=== PATIENT | male | born 1965 | race Caucasian/White ===

== ENCOUNTER → 2016-08-05 18:44 | Outpatient (CLI) | payer MEDICARE | END | disposition home or self-care (01) | LOC: D.LABREF 18:44 | DX: M17.11 Unilateral primary osteoarthritis, right knee (principal) ==

== ENCOUNTER 2016-09-10 09:00 | Inpatient (IN) | payer MEDICARE ==
[~2016-09-10] VITALS: Ht 175.3 cm; Wt 164.5 kg
[2016-09-10 08:35] LABS: APPEARANCE HAZY (CLEAR); BILIRUBIN NEGATIVE (NEGATIVE); COLOR DK YELLOW (YELLOW); GLUCOSE 1000 mg/dL (NEGATIVE); KETONE NEGATIVE (NEGATIVE); LEUKOCYTE ESTERASE NEGATIVE (NEGATIVE); NITRITE NEGATIVE (NEGATIVE); PROTEIN NEGATIVE (NEGATIVE); SPECIFIC GRAVITY 1.015 (1.005-1.020); UROBILINOGEN NORMAL (NORMAL)
[2016-09-10 08:45] LABS: ANION GAP 14.5 mmol/L (8-16); CALCIUM 9.3 mg/dL (8.5-10.1); CREATININE - SERUM 1.3 mg/dL (0.6-1.3); POTASSIUM - SERUM 3.5 mmol/L (3.5-5.1)
[2016-09-10 08:51] LABS: APTT 28.3 SECONDS (22.8-39.4); INR 1.13 (0.85-1.17); PROTIME 14.4 SECONDS (11.6-15.0)
[~2016-09-10 09:00] MED LIST: BUPROPION HCL200 M1 PO; ELIQUIS2.5 MG PO; FARXIGA10 MG PO; ISOSORBIDE MONO30 M1 PO; KLONOPIN1 MG PO; LANTUS INSULIN10 ML SC; LEXAPRO20 MG PO; NEURONTIN 300300 MG PO; OMEPRAZOLE20 M1 PO; TRAZODONE HCL150 MG PO; TROKENDI XR100 MG PO; VICTOZA0.6 MG/0.1 SQ; VITAMIN B-122500 MCG PO; VITAMIN D5000 UNIT PO; ZESTORETIC 20-1 EACH PO
[2016-09-10] MEDS ORDERED: NOVOLOG100 U/M1 SC (09:01)
[2016-09-10] MEDS ORDERED: LOTRISONE CREAM45 GM TOPICAL (09:02)
[2016-09-10] MEDS ORDERED: METFORMIN HCL500 M1 PO (09:02)
[2016-09-10] MEDS ORDERED: ZYRTEC10 MG PO (09:03)
[2016-09-10] MEDS ORDERED: REQUIP1 MG PO (09:03)
[2016-09-10] MEDS ORDERED: PROVENTIL HFA6.7 GM INH (09:04)
[2016-09-10] MEDS ORDERED: COLACE100 MG PO (09:04)
[2016-09-10 09:10] LABS: BASOPHILS 0.4 % (0-2); EOSINOPHILS 2.5 % (0-7); HEMATOCRIT 53.6 % (42.0-54.0); HEMOGLOBIN 18.2 g/dL (13.5-17.5); IMMATURE GRANULOCYTES 1.2 % (0-5); LYMPHOCYTES 29.8 % (15-50); MCH 29.3 pg (26.0-34.0); MCV 86.2 fL (80.0-100.0); MEAN PLATELET VOLUME 12.5 fL (7.4-10.4); MONOCYTES 11.6 % (2-11); NEUTROPHILS 54.5 % (40-80); PLATELET COUNT 174 10x3/uL (130-400); RBC 6.22 10x6/uL (4.20-6.10); RDW 14.4 % (11.5-14.5); WBC 6.7 10x3/uL (4.8-10.8)
[2016-09-14 09:11] VITALS: BP 127/75; BMI 53.6
[2016-09-14 13:00] VITALS: BP 111/77
--- NOTE | 2016-09-14 13:00 | NUR ---
RECEIVED TO ROOM 2210 FROM RECOVERY ROOM VIA BED. ORIENTED TO ROOM AND CALL LIGHT SYSTEM. FAMILY IN ROOM. CALL LIGHT IN REACH. WILL CONTINUE WITH PLAN OF CARE.
--- NOTE | 2016-09-14 15:00 | NUR ---
RESTING WITH EYES CLOSED. RESP EVEN AND UNLABORED. CALL LIGHT IN REACH.
[2016-09-14 15:57] VITALS: BP 111/77; Ht 175.3 cm; Wt 164.5 kg
--- NOTE | 2016-09-14 17:23 | NUR ---
ANCEF IVPB PER ORDER. DAUGHTER IN ROOM. CALL LIGHT IN REACH.
--- NOTE | 2016-09-14 18:35 | NUR ---
MEDS ADMINISTERED PER ORDER. NORCO PO. CPM ON. SCD TO LLE. ICE TO RIGHT KNEE. NO CHANGES IN INITIAL ASSESSMENT. CALL LIGHT IN REACH. WILL CONTINUE WITH PLAN OF CARE.
[2016-09-14 20:00] VITALS: BP 107/70
[2016-09-15] VITALS: BP 117/69
--- NOTE | 2016-09-15 02:57 | NUR ---
RESTING WITH EYES CLOSED, NO DISTRESS NOTED, FALL PRECAUTIONS IN PLACE, CL IN REACH
[2016-09-15 04:00] VITALS: BP 122/69
[2016-09-15 05:10] LABS: HEMATOCRIT 44.8 % (42.0-54.0); HEMOGLOBIN 14.6 g/dL (13.5-17.5); MCH 28.4 pg (26.0-34.0); MCHC 32.6 g/dL (31.0-37.0); MCV 87.2 fL (80.0-100.0); MEAN PLATELET VOLUME 12.6 fL (7.4-10.4); RBC 5.14 10x6/uL (4.20-6.10); RDW 14.4 % (11.5-14.5); WBC 8.1 10x3/uL (4.8-10.8)
--- NOTE | 2016-09-15 07:20 | NUR ---
REPORT RECEIVED FROM FEEDER/FOLDER NURSE. CALL LIGHT IN REACH.
--- NOTE | 2016-09-15 08:15 | NUR ---
ASSESSMENT COMPLETED. SCD TO LLE. BED ALARM ON. CALL LIGHT IN REACH. WILL CONTINUE WITH PLAN OF CARE.
[2016-09-15 09:17] VITALS: BP 109/59
--- NOTE | 2016-09-15 09:54 | NUR ---
* Is the patient Alert and Oriented? Yes 0 * How many steps to enter\exit or inside your home? 2 0 * PCP STEPHY 0 * Pharmacy [facility] [address] * Preadmission Environment Home with Family 0 * ADLs Partial Dependent 0 * Partial ADLs (Assistance needed) Ambulation Bathing Dressing 0 * Equipment Bedside Commode Cane CPAP Elevated Toliet Seat Rolling Walker Shower Chair Walker Wheelchair 0 * List name and contact numbers for known caregivers / representatives who currently or will assist patient after discharge: ALLA () [phone] DB (DAD) [phone] ([employer] [facility]) 0 * Community resources currently utilized None 0 * Additional services required to return to the preadmission environment? Yes 0 * Can the patient safely return to the preadmission environment? Yes 0 * Has this patient been hospitalized within the prior 30 days at any hospital? No 0 Grand Total: 0 Patient Name: FRANCINE CERVANTES Admission Status: Elective Accout number: [id number] Admission Date: 09-14-2016 : 1965 Admission Diagnosis: Attending: FINA Current LOS: 1 Anticipated DC Date: Planned Disposition: Home Primary Insurance: [facility] Discharge Planning Comments: CM met with patient to assess discharge planning needs. Patient currently lives at home with his (Alla) and his daughter. He stated that him and his help each other with their daily living needs. He stated that his house is a safe environment to return home and his father (Db) will be the one to drive him home. He uses a cpap machine, walker, wheelchair & shower chair. His discharge plan is to do Out Patient PT with [facility]. CM called Diane with [facility] called to verify the DME equipment, she stated that she is checking on equipment. CM will continue to follow and assist as needed. PCP: Stephy/Quynh Pharmacy: [facility] [address] - [place]a ([phone]) Dad- Db ([phone] Reinforced Steel Placing Supervisor: Awa Lazo
--- NOTE | 2016-09-15 09:56 | NUR ---
PATIENT REQUESTED PAIN MEDICATION BEFORE GETTING UP WITH PHYSICAL THERAPIST. ADMINISTERED PERCOCET PER ORDER. PATIENT IS RECIEVING OXYGEN VIA NASAL CANNULA AT 4L/MIN.
--- NOTE | 2016-09-15 10:31 | NUR ---
ASSESSMENT COMPLETED. SCD TO LLE. BED ALARM ON. CALL LIGHT IN REACH. WILL CONTINUE WITH PLAN OF CARE.
--- NOTE | 2016-09-15 10:31 | NUR ---
AM MEDS ADMINISTERED. UP TO CHAIR WITH PT.
[2016-09-15 11:54] VITALS: BP 101/66
--- NOTE | 2016-09-15 12:40 | NUR ---
4 UNITS INSULING SUBQ FOR BLOOD SUGAR OF 169.
--- NOTE | 2016-09-15 14:22 | NUR ---
PERCOCET AND NEURONTIN PO. IF FLUSHED THEN SL'D. AND FAMILY IN ROOM. CALL LIGHT IN REACH.
[2016-09-15 15:31] VITALS: BP 124/69
--- NOTE | 2016-09-15 16:40 | NUR ---
RESTING WITH EYES CLOSED. RESP EVEN AND UNLABORED. CALL LIGHT IN REACH.
--- NOTE | 2016-09-15 18:02 | NUR ---
TORADOL AND NORCO FOR CPM. METFORMIN PO. ICE PACK REFILLED AND PLACED TO RIGHT KNEE. NO OTHER CHANGES IN INITIAL ASSESSMENT. BED ALARM ON. CALL LIGHT IN REACH. SCDs OFF AT THIS TIME. WILL CONTINUE WITH PLAN OF CARE.
[2016-09-15 23:11] VITALS: BP 139/77
[2016-09-16] VITALS: BP 142/70
--- NOTE | 2016-09-16 01:35 | NUR ---
2230 REMOVED FROM CPM RESP. HERE BIPAP ON.ACEWRAP DRY AND INTACT RT. KNEE BRUSING NOTED RT. KNEE DOWN FOOT WARM PEDAL PULSE PRESENT. WIGGLES TOES AND DORSIFLEXES. C/O SOME NUMBNESS. WILL CONTINUE TO MONITOR FOR ANY CHGES. NEUROVASCULAR STATUS AND FOLLOW CURRENT PLAN OF CARE.
[2016-09-16 04:00] VITALS: BP 130/80
[2016-09-16 05:07] LABS: HEMATOCRIT 47.7 % (42.0-54.0); HEMOGLOBIN 15.7 g/dL (13.5-17.5); MCH 28.5 pg (26.0-34.0); MCHC 32.9 g/dL (31.0-37.0); MCV 86.6 fL (80.0-100.0); RBC 5.51 10x6/uL (4.20-6.10); RDW 14.5 % (11.5-14.5); WBC 8.2 10x3/uL (4.8-10.8)
--- NOTE | 2016-09-16 07:15 | NUR ---
REPORT RECEIVED FROM TEACHER EDUCATION DIRECTOR NURSE. CALL LIGHT IN REACH.
[2016-09-16 07:58] VITALS: BP 122/72
--- NOTE | 2016-09-16 08:20 | NUR ---
CPM REMOVED FROM RIGHT KNEE. NO NEEDS VOICED AT THIS TIME. CALL LIGHT IN REACH.
--- NOTE | 2016-09-16 10:32 | NUR ---
UP TO CHAIR PER PT. AMBULATED 8 FEET ONLY. ASSESSMENT COMPLETED. AM MEDS ADMINISTERED WITH PERCOCET. SCDs OFF AT THIS TIME. ALARM ON. ICE PACK REFILLED AND PLACED TO RIGHT KNEE. CALL LIGHT IN REACH. WILL CONTINUE WITH PLAN OF CARE.
[2016-09-16 12:06] VITALS: BP 138/73
--- NOTE | 2016-09-16 12:21 | NUR ---
FSBS 172. 4 UNITS INSULIN SUBQ.
--- NOTE | 2016-09-16 14:45 | NUR ---
MERCEDES AND BRAXTON PO. CALL LIGHT IN REACH.
[2016-09-16 15:36] VITALS: BP 137/77
--- NOTE | 2016-09-16 16:19 | NUR ---
PT AOX4 RESP EVEN AND NONLABORED PT DENIES NEEDS AT THIS TIME IV TO LEFT WRIST PATENT AND INTACT SRX2 BED AT LOWEST SETTING CALL LIGHT WITHIN REACH PT HERE FOR RIGHT TOTAL KNEE REPLACEMENT
--- NOTE | 2016-09-16 17:04 | NUR ---
METFORMIN PO. FSBS 168. 4 UNITS SUBQ TO RLQ ABD. CALL LIGHT IN REACH.
[2016-09-16 17:14] LABS: ALBUMIN 2.9 g/dL (3.4-5.0); ANION GAP 15.3 mmol/L (8-16); BILIRUBIN - TOTAL 0.93 mg/dL (0.2-1.3); CALCIUM 9.2 mg/dL (8.5-10.1); CARBON DIOXIDE 21.7 mmol/L (21.0-32.0); CREATININE - SERUM 1.1 mg/dL (0.6-1.3); PROTEIN - SERUM 6.5 g/dL (6.4-8.2)
--- NOTE | 2016-09-16 18:09 | NUR ---
CPM LACED ON. NO CHANGES IN INITIAL ASSESSMENT. ICE PACK REFILLED AND PLACED TO KNEE. STILL HAS SCDs OFF. BED ALARM ON. CALL LIGHT IN REACH. WILL CONTINUE WITH PLAN OF CARE.
--- NOTE | 2016-09-16 19:00 | NUR ---
BEDSIDE REPORT RECEIVED AND CARE OF PT ASSUMED. RIGHT LEG IN CPM AT THIS TIME. DRESSING ON RIGHT KNEE CLEAN AND DRY. IV IN LEFT WRIST SALINE LOCKED. SCD'S IN USE ON BLE. WILL MONITOR CLOSLEY FOR NEEDS.
[2016-09-16 20:00] VITALS: BP 138/79
--- NOTE | 2016-09-16 20:56 | NUR ---
HS MEDICATIONS GIVEN. FSBS 175 THIS CHECK REQUIRING CCOVERAGE PER SLIDING SCALE. WILL CONTINUE TO MONITOR FOR NEEDS.
[2016-09-17] VITALS: BP 122/74
[2016-09-17 04:00] VITALS: BP 135/85
--- NOTE | 2016-09-17 05:00 | NUR ---
PT BATHED AND ALL BEDDING CHANGED DUE TO INCONTINENT EPISODE. POSITIONED FOR COMFORT.
--- NOTE | 2016-09-17 05:45 | NUR ---
GAVE PERCOCET PER PT REQUEST FOR PAIN IN KNEE, AND ABOUT TO BE PLACED ON CPM. WILL MONITOR FOR EFFECTIVENESS.
[2016-09-17 07:40] VITALS: BP 155/81
--- NOTE | 2016-09-17 07:50 | NUR ---
A&O, PT STATES "I PULLED A MUSCLE IN MY STOMACH FROM COUGHING", DENIES OTHER NEEDS, BED LOWEST POSITION, CALL LIGHT IN REACH, WILL CONTINUE TO MONITOR
--- NOTE | 2016-09-17 10:01 | NUR ---
REHAB PRESCREENING Rehab referral recieved and chart reviewed. Patient does not meet criteria for IRF. Thank you for this referral! Lamar Ramirez, OPTIMIZATION ENGINEER Rehab Transfer Specialist
--- NOTE | 2016-09-17 11:53 | NUR ---
IN BED AT THIS TIME. INSULIN ADMINISTERED PER SLIDING SCALE. RESPIRATIONS EVEN AND NON LABORED. CALL LIGHT IN REACH, WILL CONTINUE WITH PLAN OF CARE.
[2016-09-17 12:24] VITALS: BP 137/71
--- NOTE | 2016-09-17 12:48 | NUR ---
CM spoke with patient, PT, and Jeaneth TANG. Patient does not think he would do best with out patient PT and all agree. We discussed options referral sent to Inpatient rehab along with [facility]. Awaiting on Auth from insurance
[2016-09-17 15:34] VITALS: BP 101/72
[2016-09-17 19:00] VITALS: BP 118/63
--- NOTE | 2016-09-17 19:00 | NUR ---
PATIENT IN BED SLEEPING ON CPM. HOB 10 DEGREES. RR EVEN AND UNLABORED. 0 S/S OF DISTRESS. IV TO LEFT WRIST SL WITH NO REDNESS OR SWELLING. SCD'S IN ROOM BUT OFF. B/A ON PER ORTHO PROTOCOL. SRX3. BED LOW. CALL LIGHT WITHIN REACH.
--- NOTE | 2016-09-17 22:40 | NUR ---
NIGHTTIME MEDICATION ADMINISTERED. PERCOCET GIVEN FOR PAIN. WILL REASSESS.
[2016-09-18] VITALS: BP 110/60
--- NOTE | 2016-09-18 01:00 | NUR ---
BATH GIVEN. ORAL CARE COMPLETE. NO OTHER NEEDS AT THIS TIME.
[2016-09-18 04:00] VITALS: BP 103/50
[2016-09-18 07:36] VITALS: BP 101/60
--- NOTE | 2016-09-18 10:40 | NUR ---
CM REASSESSMENT NOTE: [facility] DID NOT ACCEPT PATIENT. REFERRAL SENT TO [facility] PER PATIENT REQUEST.
[2016-09-18 12:09] VITALS: BP 92/55
--- NOTE | 2016-09-18 13:05 | NUR ---
PT SITTING UP IN BED WITH NO VISABLE SIGNS OF PAIN OF DISCOMFORT AT THIS TIME, BED IN LOW POSITION AND CALL LIGHT WITHIN REACH. WILL CONTINUE TO MONITOR.
[2016-09-18 15:14] VITALS: BP 106/63
--- NOTE | 2016-09-18 15:24 | OP ---
PATIENT NAME: FRANCINE CERVANTES MEDICAL RECORD: [id number] :[birth year] LOCATION:D.MS [id number] ADMISSION DATE:09/14/16 SURGEON: CARY JARVIS MD DATE OF OPERATION: 09/14/2016 PREOPERATIVE DIAGNOSES: 1. Severe degenerative arthritis of the right knee. 2. Morbid obesity. POSTOPERATIVE DIAGNOSES: 1. Severe degenerative arthritis of the right knee. 2. Morbid obesity. PROCEDURE: Right total knee arthroplasty. SURGEON: Cary Jarvis MD ANESTHESIA: General. INTRAOPERATIVE COMPLICATIONS: None. SUMMARY OF PATHOLOGIC FINDINGS: The patient had extensive osteoarthritis of the medial compartment and moderate to severe arthritis of the lateral compartment and patellofemoral joint was pristine. IMPLANTS USED: A size 4 press fit triathlon femoral component, size 9 polyethylene component, size 4 press fit triathlon tibial component. ESTIMATED BLOOD LOSS: 50 cc. OPERATIVE SUMMARY IN DETAIL: After obtaining the appropriate preoperative orthopedic surgery consent as well as anesthetic consultation, evaluation and clearance, the patient was brought to the operating room and placed on the operating table in supine position. After general laryngeal mask airway was administered, tourniquet was placed about the proximal aspect of the right lower extremity. Right lower extremity was then prepped and draped in routine sterile fashion. The leg was elevated and exsanguinated, tourniquet inflated to 350 mmHg. Midline incision was taken down for paramedian arthrotomy. Patella was everted, distal femur was exposed. Soft tissue excision was done in the usual fashion. Intramedullary guide hole was created for the distal femur and the distal femur cut was made. The patient had very strong bone. At this point, the proximal tibia was exposed in its entirety. Intramedullary guide hole was created here. Proximal tibial cut was made. This was followed by taking the appropriate measurements for the tibial baseplate as well as for the chamfer cuts of the distal femur, chamfer cuts of the distal femur were made. All accessory osteophytes were removed and the trial components were put into place corresponding to the above-mentioned final sizes. The trial component was put into its final location and stabilized. The pins were put into place. The knee was taken through range of motion and found to be stable in all planes. Proximal tibia and distal femoral final preparations were made. The knee was irrigated with pulsatile lavage. Having completed this, the tibial baseplate was put into place with good press fit followed by the polyethylene and then the femoral component was put into place again followed by good press fit. The knee was taken through range of motion. Excellent patellar tracking was noted. Having completed this, the knee was irrigated again, closed with #2 Ethibond OPERATIVE REPORT [id number] FRANCINE CERVANTES followed by #1 Vicryl, 2-0 Vicryl and skin yoni. Sterile dressings were applied. Tourniquet was deflated. The patient was awakened, taken to recovery room in stable condition. All final needle and sponge counts were correct. TRANSINT:[id number] Voice Confirmation ID: [id number] DOCUMENT ID: [id number] SIMONA ALVARADO, CARY ANTHONY at 1524 CC: [id number] DICTATION DATE: 09/14/16 1218 LOCK TENDER: 09/14/16 2330 ADM IN [facility] [address] [place] [address]
--- NOTE | 2016-09-18 16:12 | NUR ---
CM REASSESSMENT NOTE: PATIENT IS DISCHARGING TO [facility] TODAY TO A SKILLED BED BY FACILITY BED. IS AWARE AND BRINGING PATIENTS C-PAP TO HIM FOR DISCHARGE.
[2016-09-18] MEDS ORDERED: PERCOCET 10/3251 TA1 PO (16:37)
--- NOTE | 2016-09-18 18:07 | NUR ---
DISCHARGE PAPERS AND INSTRUCTIONS GIVEN, QUESTIONS ANSWERED, IV REMOVED TIP INTACT, PERCOCET GIVEN, DICHARGED PER WC WITH BELONGINGS, REPORT CALLED TO BALWINDER ORTEGA RN
== END 2016-09-18 18:08 | DRG 470 ==
LOC: D.MS 09-14 08:30 → D.SDCHOLD 09-14 08:30 → D.MS 09-14 11:35
PROVIDERS: ADMIT Orthopaedic Surgery
PROC: 0SRC0JA Replacement of Right Knee Joint with Synthetic Substitute, Uncemented, Open Approach (ICD-10-PCS; principal; 2016-09-14 09:15)
DX: M17.11 Unilateral primary osteoarthritis, right knee (principal); Z68.43 Body mass index [BMI] 50.0-59.9, adult; E66.01 Morbid (severe) obesity due to excess calories; M25.761 Osteophyte, right knee; E11.40 Type 2 diabetes mellitus with diabetic neuropathy, unspecified; Z79.4 Long term (current) use of insulin; I10 Essential (primary) hypertension; J45.909 Unspecified asthma, uncomplicated; Z86.718 Personal history of other venous thrombosis and embolism

== ENCOUNTER 2016-10-01 16:35 | Emergency (ER) | payer MEDICARE ==
[2016-09-14 15:57] VITALS: BMI 53.6
[~2016-10-01 16:35] MED LIST changes: +COLACE100 MG PO; +LOTRISONE CREAM45 GM TOPICAL; +METFORMIN HCL500 M1 PO; +NOVOLOG100 U/M1 SC; +PERCOCET 10/3251 TA1 PO; +PROVENTIL HFA6.7 GM INH; +REQUIP1 MG PO; +ZYRTEC10 MG PO
== END 2016-10-01 18:56 | disposition home or self-care (01) ==
LOC: D.ER 16:35
DX: S16.1XXA Strain of muscle, fascia and tendon at neck level, initial encounter (principal); W07.XXXA Fall from chair, initial encounter; Y93.E1 Activity, personal bathing and showering; Y92.012 Bathroom of single-family (private) house as the place of occurrence of the external cause

== ENCOUNTER → 2016-11-17 17:29 | Outpatient (CLI) | payer MEDICARE ==
[2016-09-14 15:57] VITALS: BMI 53.6
== END | disposition home or self-care (01) ==
LOC: D.LABREF 17:29
DX: Z13.9 Encounter for screening, unspecified (principal)

== ENCOUNTER 2016-12-06 13:05 | Emergency (ER) | payer MEDICARE ==
[2016-09-14 15:57] VITALS: BMI 53.6
== END 2016-12-06 15:42 | disposition home or self-care (01) ==
LOC: D.ER 13:05
DX: M25.562 Pain in left knee (principal); W10.9XXA Fall (on) (from) unspecified stairs and steps, initial encounter; Y93.89 Activity, other specified; Y92.511 Restaurant or cafe as the place of occurrence of the external cause

== ENCOUNTER → 2017-03-22 13:22 | Outpatient (CLI) | payer MEDICARE ==
[2016-09-14 15:57] VITALS: BMI 53.6
== END | disposition home or self-care (01) ==
LOC: D.RAD 03-19 10:30
DX: M75.41 Impingement syndrome of right shoulder (principal)

== ENCOUNTER 2018-03-03 20:41 | Emergency (ER) | payer OTHER ==
[~2018-03-03] VITALS: Ht 175.3 cm; Wt 154.5 kg
[2018-03-03 20:50] VITALS: Ht 175.3 cm; Wt 154.5 kg
[2018-03-03] MEDS ORDERED: ULTRAM50 MG PO (20:53)
[2018-03-03 21:33] LABS: APTT 28.7 SECONDS (22.8-39.4); INR 1.14 (0.85-1.17); PROTIME 14.1 SECONDS (11.6-15.0)
[2018-03-03 21:35] LABS: D-DIMER-QUANTITATIVE < 0.27 ug/mLFEU (0.20-0.54)
[2018-03-03 21:38] LABS: BASOPHILS 0.4 % (0-2); EOSINOPHILS 1.2 % (0-7); HEMATOCRIT 48.2 % (42.0-54.0); HEMOGLOBIN 16.6 g/dL (13.5-17.5); IMMATURE GRANULOCYTES 3.9 % (0-5); LYMPHOCYTES 18.7 % (15-50); MCH 29.6 pg (26.0-34.0); MCHC 34.4 g/dL (31.0-37.0); MCV 86.1 fL (80.0-100.0); MEAN PLATELET VOLUME 11.9 fL (7.4-10.4); MONOCYTES 10.1 % (2-11); NEUTROPHILS 65.7 % (40-80); PLATELET COUNT 141 10x3/uL (130-400); RDW 14.2 % (11.5-14.5)
[2018-03-03 21:46] LABS: ALBUMIN 3.5 g/dL (3.4-5.0); ANION GAP 15.7 mmol/L (8-16); BILIRUBIN - TOTAL 0.45 mg/dL (0.2-1.3); CALCIUM 8.9 mg/dL (8.5-10.1); CARBON DIOXIDE 24.9 mmol/L (21.0-32.0); CREATININE - SERUM 1.2 mg/dL (0.6-1.3); POTASSIUM - SERUM 4.6 mmol/L (3.5-5.1); PROTEIN - SERUM 6.8 g/dL (6.4-8.2)
[2018-03-04] MEDS ORDERED: CLEOCIN HCL300 MG PO (00:05)
[2018-03-04] MEDS ORDERED: FLORASTOR250 MG PO (00:05)
[2018-03-04] MEDS ORDERED: KEFLEX500 MG PO (00:05)
[2018-03-04 01:32] VITALS: BP 126/82
== END 2018-03-04 01:33 | disposition home or self-care (01) ==
LOC: D.ER 20:41
PROVIDERS: Family Medicine
DX: M79.604 Pain in right leg (principal); L03.115 Cellulitis of right lower limb; E11.9 Type 2 diabetes mellitus without complications; I10 Essential (primary) hypertension; K21.9 Gastro-esophageal reflux disease without esophagitis

== ENCOUNTER 2018-03-17 12:57 | Emergency (ER) | payer OTHER ==
[~2018-03-17] VITALS: Ht 175.3 cm; Wt 154.5 kg
[~2018-03-17 12:57] MED LIST changes: +CLEOCIN HCL300 MG PO; +FLORASTOR250 MG PO; +KEFLEX500 MG PO; +ULTRAM50 MG PO
[2018-03-17 12:59] VITALS: BP 142/81; Ht 175.3 cm; Wt 154.5 kg
== END 2018-03-17 14:10 | disposition home or self-care (01) ==
LOC: D.ER 12:57
DX: M25.511 Pain in right shoulder (principal); E11.9 Type 2 diabetes mellitus without complications; I10 Essential (primary) hypertension; Z86.711 Personal history of pulmonary embolism

== ENCOUNTER → 2018-04-06 07:08 | Outpatient (CLI) | payer OTHER ==
[2018-03-17 12:59] VITALS: BMI 50.3
== END | disposition home or self-care (01) ==
LOC: D.RAD 03-10 13:30
DX: M25.511 Pain in right shoulder (principal)

== ENCOUNTER → 2018-05-09 08:08 | Outpatient (CLI) | payer OTHER ==
[2018-03-17 12:59] VITALS: BMI 50.3
== END | disposition home or self-care (01) ==
LOC: D.MRI 08:08
DX: M54.12 Radiculopathy, cervical region (principal)

== ENCOUNTER → 2018-07-08 13:20 | Outpatient (CLI) | payer OTHER ==
[2018-03-17 12:59] VITALS: BMI 50.3
== END | disposition home or self-care (01) ==
LOC: D.RAD 06-15 13:00
PROVIDERS: ATTEND Physical Medicine & Rehabilitation
DX: R13.10 Dysphagia, unspecified (principal)

== ENCOUNTER 2018-11-05 21:10 | Emergency (ER) | payer OTHER, MEDICAID ==
[~2018-11-05] VITALS: Ht 175.3 cm; Wt 158.2 kg
[~2018-11-05 21:10] MED LIST changes: -LANTUS INSULIN10 ML SC; +LANTUS SOL100 UNIT/1 SC
[2018-11-05 21:12] VITALS: Ht 175.3 cm; Wt 158.2 kg
[2018-11-05] MEDS ORDERED: SKELAXIN800 MG PO (21:17)
[2018-11-05] MEDS ORDERED: ELIQUIS5 MG PO (21:20)
[2018-11-05] MEDS ORDERED: ATIVAN0.5 MG PO (21:20)
[2018-11-05] MEDS ORDERED: BREO ELLIPTA 11 EACH INH (21:22)
[2018-11-05] MEDS ORDERED: HUMULIN 70100 UNIT/1 SC (21:24)
[2018-11-05] MEDS ORDERED: SINGULAIR10 MG PO (21:25)
[2018-11-05] MEDS ORDERED: EPIPEN JR0.15 MG/01 IM (21:25)
[2018-11-06 00:22] VITALS: BP 136/80
== END 2018-11-06 00:22 | disposition home or self-care (01) ==
LOC: D.ER 21:10
DX: M25.562 Pain in left knee (principal); I82.512 Chronic embolism and thrombosis of left femoral vein; I82.532 Chronic embolism and thrombosis of left popliteal vein; I82.891 Chronic embolism and thrombosis of other specified veins; I87.2 Venous insufficiency (chronic) (peripheral)

== ENCOUNTER 2018-11-20 18:43 | Emergency (ER) | payer OTHER, MEDICAID ==
[~2018-11-20] VITALS: Ht 175.3 cm; Wt 156.8 kg
[~2018-11-20 18:43] MED LIST changes: +ATIVAN0.5 MG PO; +BREO ELLIPTA 11 EACH INH; +ELIQUIS5 MG PO; +EPIPEN JR0.15 MG/01 IM; +HUMULIN 70100 UNIT/1 SC; +SINGULAIR10 MG PO; +SKELAXIN800 MG PO
[2018-11-20 19:11] VITALS: Ht 175.3 cm; Wt 156.8 kg
[2018-11-20] MEDS ORDERED: HUMALOG 30100 UNITS/ SQ (19:25)
[2018-11-20] MEDS ORDERED: TORADOL10 MG PO (22:51)
[2018-11-20] MEDS ORDERED: SULFAMETHOXAZOL1 TA2 PO (22:51)
[2018-11-20 23:15] VITALS: BP 132/71
== END 2018-11-20 23:15 | disposition home or self-care (01) ==
LOC: D.ER 18:43
DX: N49.2 Inflammatory disorders of scrotum (principal)

== ENCOUNTER 2018-11-23 11:31 | Inpatient (IN) | payer OTHER, MEDICAID ==
[~2018-11-23] VITALS: Ht 175.3 cm; Wt 158.8 kg
[~2018-11-23 11:31] MED LIST changes: +HUMALOG 30100 UNITS/ SQ; +SULFAMETHOXAZOL1 TA2 PO; +TORADOL10 MG PO
[2018-11-23] MEDS ORDERED: NEURONTIN600 MG PO (12:02)
[2018-11-23] MEDS ORDERED: HUMALOG 30100 UNITS/ SQ (12:07)
[2018-11-23] MEDS ORDERED: HUMALOG 30100 UNITS/ SC ×2 (12:08→12:10)
[2018-11-23 12:29] LABS: BASOPHILS 0.3 % (0-2); HEMATOCRIT 44.3 % (42.0-54.0); HEMOGLOBIN 15.6 g/dL (13.5-17.5); IMMATURE GRANULOCYTES 1.6 % (0-5); LYMPHOCYTES 17.6 % (15-50); MCH 29.3 pg (26.0-34.0); MCHC 35.2 g/dL (31.0-37.0); MCV 83.1 fL (80.0-100.0); MEAN PLATELET VOLUME 11.7 fL (7.4-10.4); MONOCYTES 6.9 % (2-11); NEUTROPHILS 71.6 % (40-80); PLATELET COUNT 159 10x3/uL (130-400); RBC 5.33 10x6/uL (4.20-6.10); RDW 14.2 % (11.5-14.5); WBC 7.7 10x3/uL (4.8-10.8)
[2018-11-23 12:42] LABS: ALBUMIN 3.8 g/dL (3.4-5.0); ANION GAP 12.5 mmol/L (8-16); BILIRUBIN - TOTAL 0.65 mg/dL (0.2-1.3); CALCIUM 9.3 mg/dL (8.5-10.1); CARBON DIOXIDE 25.6 mmol/L (21.0-32.0); CREATININE - SERUM 1.2 mg/dL (0.6-1.3); POTASSIUM - SERUM 5.1 mmol/L (3.5-5.1); PROTEIN - SERUM 7.4 g/dL (6.4-8.2)
[2018-11-23 13:44] VITALS: BP 149/87
[2018-11-23 14:19] VITALS: BP 149/87; BMI 51.8
[2018-11-23 15:47] LABS: APPEARANCE CLEAR (CLEAR); BILIRUBIN NEGATIVE (NEGATIVE); COLOR YELLOW (YELLOW); GLUCOSE 1000 mg/dL (NEGATIVE); KETONE NEGATIVE (NEGATIVE); NITRITE NEGATIVE (NEGATIVE); PROTEIN NEGATIVE (NEGATIVE); UROBILINOGEN NORMAL (NORMAL)
[2018-11-23 17:08] VITALS: BP 126/77
--- NOTE | 2018-11-23 22:01 | NUR ---
RESTING QUEITLY. NO DISTRESS NOTED. RESP UNLABORED. IV TO RFA INTACT WITHOUT REDNESS OR EDEMA NOTED. NO COMPLAINTS AT PRESENT . CL IN REACH
[2018-11-23 22:39] VITALS: BP 133/65
--- NOTE | 2018-11-24 04:00 | NUR ---
I have reviewed this patient and I concur with the Shift Assessment completed by the Licensed Practical Nurse today this shift.
[2018-11-24 05:36] VITALS: BP 116/55
[2018-11-24 06:42] LABS: BASOPHILS 0.6 % (0-2); EOSINOPHILS 2.6 % (0-7); HEMOGLOBIN 14.2 g/dL (13.5-17.5); LYMPHOCYTES 28.6 % (15-50); MCHC 34.6 g/dL (31.0-37.0); MCV 83.8 fL (80.0-100.0); MONOCYTES 10.9 % (2-11); NEUTROPHILS 54.3 % (40-80); PLATELET COUNT 144 10x3/uL (130-400); RBC 4.89 10x6/uL (4.20-6.10); RDW 14.4 % (11.5-14.5)
[2018-11-24 06:43] LABS: ALBUMIN 3.1 g/dL (3.4-5.0); ANION GAP 11.5 mmol/L (8-16); BILIRUBIN - TOTAL 0.5 mg/dL (0.2-1.3); CALCIUM 8.7 mg/dL (8.5-10.1); CARBON DIOXIDE 25.8 mmol/L (21.0-32.0); CREATININE - SERUM 1.1 mg/dL (0.6-1.3); MAGNESIUM - SERUM 1.7 mg/dL (1.8-2.4); PROTEIN - SERUM 6.2 g/dL (6.4-8.2)
[2018-11-24 06:48] LABS: POTASSIUM - SERUM 4.3 mmol/L (3.5-5.1)
--- NOTE | 2018-11-24 08:00 | NUR ---
PATIENT IN OR.
[2018-11-24 08:27] VITALS: BP 120/71
--- NOTE | 2018-11-24 08:45 | NUR ---
PATIENT BACK TO ROOM WITH IV INTACT. NO COMPLAINTS OR SIGNS OF DISTRESS. FAMILY AT BEDSIDE. CALL LIGHT WITHIN REACH. BSCDS ON AND WORKING.
--- NOTE | 2018-11-24 09:30 | NUR ---
PATIENT IN BED WITH IV INTACT. NO COMPLAINTS. TOLERATING PO WITH NO N/V. FAMILY AT BEDSIDE. CALL LIGHT WITHIN REACH.
[2018-11-24 10:51] VITALS: Ht 175.3 cm; Wt 158.8 kg
[2018-11-24 12:48] VITALS: BP 123/51
[2018-11-24 16:39] VITALS: BP 110/58
--- NOTE | 2018-11-24 18:45 | NUR ---
PATIENT IN BED WITH IV INTACT. NO COMPLAINTS OR SIGNS OF DISTRESS. DRESSING CHANGED BY MADI BELLAMY AT 1700. CALL LIGHT WITHIN REACH.
[2018-11-24 21:43] VITALS: BP 116/67
--- NOTE | 2018-11-25 04:01 | NUR ---
PT AMBULATED TO BATHROOM. SCROTAL DRESSING SOILED. REMOVED DRESSING. MINIMAL BLOODY DRAINAGE ON DRESSING. CLEANED WITH SALINE. APPLIED FOLDED 4X4 AND BORDER DRESSING. GAVE DEMEROL 12.5 MG IV PUSH. NO OTHER NEEDS. WILL CONTINUE TO MONITOR.
[2018-11-25 04:59] VITALS: BP 120/75
[2018-11-25 05:18] LABS: BASOPHILS 0.7 % (0-2); EOSINOPHILS 2.5 % (0-7); HEMATOCRIT 39.8 % (42.0-54.0); HEMOGLOBIN 13.8 g/dL (13.5-17.5); IMMATURE GRANULOCYTES 3.5 % (0-5); LYMPHOCYTES 28.5 % (15-50); MCH 28.9 pg (26.0-34.0); MCHC 34.7 g/dL (31.0-37.0); MCV 83.3 fL (80.0-100.0); MEAN PLATELET VOLUME 12.1 fL (7.4-10.4); MONOCYTES 8.4 % (2-11); NEUTROPHILS 56.4 % (40-80); PLATELET COUNT 144 10x3/uL (130-400); RBC 4.78 10x6/uL (4.20-6.10); RDW 14.3 % (11.5-14.5); WBC 5.5 10x3/uL (4.8-10.8)
[2018-11-25 05:35] LABS: ALBUMIN 2.9 g/dL (3.4-5.0); ALKALINE PHOSPHATASE 76 U/L (46-116); ALT (SGPT) 16 U/L (10-68); BILIRUBIN - TOTAL 0.39 mg/dL (0.2-1.3); CALC OSMOLALITY 287 mosm/kg (275-300); CALCIUM 8.7 mg/dL (8.5-10.1); CARBON DIOXIDE 21.2 mmol/L (21.0-32.0); CHLORIDE - SERUM 107 mmol/L (98-107); CREATININE - SERUM 0.9 mg/dL (0.6-1.3); GLUCOSE 217 mg/dL (74-106); MAGNESIUM - SERUM 1.7 mg/dL (1.8-2.4); POTASSIUM - SERUM 4.6 mmol/L (3.5-5.1); PROTEIN - SERUM 5.5 g/dL (6.4-8.2); SODIUM 139 mmol/L (136-145); UREA NITROGEN 21 mg/dL (7-18); eGFR NON AFRICAN AMERICAN > 90 mL/min (90-120)
--- NOTE | 2018-11-25 07:30 | NUR ---
COMPLAINS OF RIGHT CHEST DISCOMFORT.CALL TO ICU AND SPOKE WITH ALDO.SHE IS COMING TO SEE PT.ORDERS INITIATED.
[2018-11-25 08:57] LABS: CKMB 0.9 U/L (0.0-3.6); CREATINE KINASE 37 UL (21-232); TROPONIN-I < 0.017 ng/mL (0.000-0.060)
--- NOTE | 2018-11-25 09:00 | NUR ---
ASSESSMENT PER FLOW SHEET. PT IS WITHOUT DISTRESS.HE DTILL COMPLAINS OF CHEST DISCOMFORT.PT REPORTS HISTORY PLEURISY.
[2018-11-25 09:01] VITALS: BP 122/80
[2018-11-25 13:26] VITALS: BP 115/49
--- NOTE | 2018-11-25 16:10 | NUR ---
DR ALBERTS SAID VDS INSTEAD OF ADS /GC
--- NOTE | 2018-11-25 17:08 | MORECARE ---
CASE MANAGEMENT DISCHARGE SUMMARY PATIENT: FRANCINE CERVANTES UNIT: [id number] ADM DATE: 11/23/18 AGE: 53 : 61 SEX: M ROOM/BED: D.2222 AUTHOR: MARIAMA COURTNEY PHYSICIAN: REFERRING PHYSICIAN: HANK ALEJANDRE DO DATE OF SERVICE: 11/25/18 Discharge Plan Patient Name: FRANCINE CERVANTES Facility: [facility]:[place] : 1965 Planned Disposition: Home Anticipated Discharge Date: Discharge Date: Expected LOS: Initial Reviewer: [email or web address] Initial Review Date: 11/23/2018 Generated: 11/25/18 6:08 pm Comments DCP- Discharge Planning Updated by [email or web address]: Elizabeth Miranda on 11/25/18 4:[address] Patient Name: FRANCINE CERVANTES Admission Status: Elective Accout number: [id number] Admission Date: 11-23-2018 : 1965 Admission Diagnosis: Attending: HANK ALEJANDRE Current LOS: 2 Anticipated DC Date: Planned Disposition: Home Primary Insurance: [employer] Discharge Planning Comments: CM MET WITH PATIENT AND HIS ABOUT DC NEEDS. STATES PLANS TO DC TO HOME, GETS ALL DME FROM [facility] AND DENIES ANY NEEDS AT THIS TIME. CM TO FOLLOW AND ASSIST. Air Bag Buffer: Elizabeth Miranda DCPIA - Discharge Planning Initial Assessment Updated by [email or web address]: Elizabeth Miranda on 11/25/18 5:05 pm * Is the patient Alert and Oriented? Yes * Preadmission Environment Home with Family * Other Equipment HOPITAL BED, BIPAP, STATES PATEL'S FOR DME * List name and contact numbers for known caregivers / representatives who currently or will assist patient after discharge: ELIDA, SPOUSE, * Additional services required to return to the preadmission environment? No * Can the patient safely return to the preadmission environment? Yes * Has this patient been hospitalized within the prior 30 days at any hospital? No Patient Name: FRANCINE CERVANTES Page [id number] at 1708 All edits/amendments must be made on the electronic document DICTATION DATE: 08/1707 SIGN LANGUAGE INSTRUCTOR: DM 11/25/181707 RPT#: [id number] DC DATE: STATUS: ADM IN [facility] [address] [place] [address] END OF REPORT
[2018-11-25 20:40] VITALS: BP 124/60
--- NOTE | 2018-11-25 20:55 | NUR ---
PT WANTED DRESSING TO SCROTUM CHANGED. CLEANED WITH NORMAL SALINE. APPLIED 4X4 GAUZE AND BORDER DRESSING. PAIN MED AND SCHEDULED MEDS GIVEN. CONTACT ISOLATION PRECAUTIONS OBSERVED. NO OTHER NEEDS. WILL CONTINUE TO MONITOR.
[2018-11-26 00:19] VITALS: BP 117/80
[2018-11-26 04:50] VITALS: BP 114/59
[2018-11-26 05:27] LABS: BASOPHILS 0.4 % (0-2); EOSINOPHILS 2.8 % (0-7); HEMATOCRIT 41.4 % (42.0-54.0); IMMATURE GRANULOCYTES 4.1 % (0-5); LYMPHOCYTES 27.9 % (15-50); MCH 28.5 pg (26.0-34.0); MCHC 33.8 g/dL (31.0-37.0); MCV 84.1 fL (80.0-100.0); MEAN PLATELET VOLUME 11.6 fL (7.4-10.4); NEUTROPHILS 55.8 % (40-80); PLATELET COUNT 141 10x3/uL (130-400); RBC 4.92 10x6/uL (4.20-6.10); RDW 14.3 % (11.5-14.5); WBC 5.7 10x3/uL (4.8-10.8)
[2018-11-26 05:53] LABS: ALBUMIN 2.9 g/dL (3.4-5.0); ALKALINE PHOSPHATASE 75 U/L (46-116); ALT (SGPT) 19 U/L (10-68); BILIRUBIN - TOTAL 0.33 mg/dL (0.2-1.3); CALCIUM 8.9 mg/dL (8.5-10.1); CHLORIDE - SERUM 108 mmol/L (98-107); MAGNESIUM - SERUM 1.8 mg/dL (1.8-2.4); POTASSIUM - SERUM 4.5 mmol/L (3.5-5.1); PROTEIN - SERUM 5.8 g/dL (6.4-8.2); SODIUM 142 mmol/L (136-145); UREA NITROGEN 20 mg/dL (7-18); eGFR NON AFRICAN AMERICAN 82 mL/min (90-120)
[2018-11-26 05:55] LABS: CALC OSMOLALITY 288 mosm/kg (275-300); CARBON DIOXIDE 27.6 mmol/L (21.0-32.0); GLUCOSE 157 mg/dL (74-106)
[2018-11-26 08:58] VITALS: BP 117/67
[2018-11-26 12:35] VITALS: BP 122/70
[2018-11-26 17:36] VITALS: BP 131/80
[2018-11-26 19:50] VITALS: BP 134/68
[2018-11-27] VITALS: BP 126/71
[2018-11-27 04:00] VITALS: BP 111/60
[2018-11-27 06:34] LABS: BASOPHILS 0.5 % (0-2); EOSINOPHILS 2.7 % (0-7); HEMATOCRIT 40.8 % (42.0-54.0); HEMOGLOBIN 13.9 g/dL (13.5-17.5); IMMATURE GRANULOCYTES 3.8 % (0-5); LYMPHOCYTES 28.8 % (15-50); MCH 28.9 pg (26.0-34.0); MCHC 34.1 g/dL (31.0-37.0); MCV 84.8 fL (80.0-100.0); MEAN PLATELET VOLUME 11.8 fL (7.4-10.4); MONOCYTES 11.8 % (2-11); NEUTROPHILS 52.4 % (40-80); PLATELET COUNT 142 10x3/uL (130-400); RBC 4.81 10x6/uL (4.20-6.10); RDW 14.2 % (11.5-14.5)
[2018-11-27 07:13] LABS: ALBUMIN 2.9 g/dL (3.4-5.0); ALKALINE PHOSPHATASE 74 U/L (46-116); ALT (SGPT) 15 U/L (10-68); CALC OSMOLALITY 285 mosm/kg (275-300); CARBON DIOXIDE 29.2 mmol/L (21.0-32.0); CHLORIDE - SERUM 106 mmol/L (98-107); GLUCOSE 160 mg/dL (74-106); MAGNESIUM - SERUM 1.7 mg/dL (1.8-2.4); POTASSIUM - SERUM 4.6 mmol/L (3.5-5.1); PROTEIN - SERUM 5.9 g/dL (6.4-8.2); SODIUM 141 mmol/L (136-145); UREA NITROGEN 18 mg/dL (7-18); eGFR NON AFRICAN AMERICAN 82 mL/min (90-120)
--- NOTE | 2018-11-27 07:46 | NUR ---
ALERT AND ORIENTED. LUNGS CLEAR BILTERALLY IN ALL [place]WOOD. HEART SOUNDS S1 AND S2 HEARD IN ALL ATWOOD. BOWEL SOUNDS ACTIVE X 4. DRSG C/D/I TO SCROTUM. IV TO RFA PATENT WITHOUT REDNESS. DENIES PAIN. DENIES NEEDS. BED LOW. CALL GUERRERO AND PERSONAL ITEMS IN REACH. WILL CONTINUE TO MONITOR.
[2018-11-27 07:58] VITALS: BP 115/53
[2018-11-27] MEDS ORDERED: TORADOL10 MG PO (09:09)
[2018-11-27] MEDS ORDERED: AUGMENTIN 875-11 TAB PO (09:09)
--- NOTE | 2018-11-27 09:33 | NUR ---
PATIENT NOTIFIED THAT DISCHARGE WOULD NOT HAPPEN UNTIL AFTER LUNCH D/T NO ONE ABLE TO SET UP HOME HEALTH UNTIL AFTER LUNCH. STATES THAT WILL BE FINE. DENIES FURTHER NEEDS.
--- NOTE | 2018-11-27 09:55 | NUR ---
RESTING IN BED. DENIES PAIN. DENIES NEEDS. WILL CONTINUE TO MONITOR.
--- NOTE | 2018-11-27 11:50 | NUR ---
DISCHARGE EDUCATION PROVIDED BOTH WRITTEN AND VERBAL. VERBALIZED UNDERSTANDING. DENIES FURTHER QUESTIONS. DRSG CHANGED TO INCISIONS PER ORDER. NO SIGNS INFECTION NOTED. NO DRAINAGE NOTED. NEW DRSG SENT HOME WITH PATIENT. VERBALIZED UNDERSTANDING OF DRSG CHANGE EDUCATION. PATIENT WAITING FOR TO AUDITOR INTERNAL AROUND 1300. WILL CONTINUE TO MONITOR.
[2018-11-27 12:43] VITALS: BP 117/80
--- NOTE | 2018-11-27 13:21 | NUR ---
IV REMOVED FROM RFA WITH TIP INTACT.
--- NOTE | 2018-11-27 13:37 | NUR ---
PATIENT DISCHARGED HOME WITH WITH ALL BELONGINGS.
--- NOTE | 2018-12-01 07:19 | OP ---
PATIENT NAME: FRANCINE CERVANTES MEDICAL RECORD: [id number] :[birth year] LOCATION:D.MS [id number] ADMISSION DATE:11/23/18 SURGEON: THELMA ADAM MD DATE OF OPERATION: 11/24/2018 PREOPERATIVE DIAGNOSES: 1. Scrotal abscess. 2. Diabetes mellitus. 3. Blood clotting disorder. 4. Morbid obesity. 5. History of pulmonary emboli. 6. Obstructive sleep apnea. 7. Hypertension. 8. Stasis dermatitis. POSTOPERATIVE DIAGNOSES: 1. Scrotal abscess. 2. Diabetes mellitus. 3. Blood clotting disorder. 4. Morbid obesity. 5. History of pulmonary emboli. 6. Obstructive sleep apnea. 7. Hypertension. 8. Stasis dermatitis. PROCEDURE: I&D of scrotal abscess times 2. SURGEON: Thelma Adam MD REPORT OF PROCEDURE: The patient's scrotal region was prepped and draped in sterile fashion. On the right anterior aspect of the scrotum, there was an area of necrotic tissue. We grasped this and removed this core of tissue revealing inflamed underlying fatty tissue. We treated this area with electrocautery to stop any bleeding. We then looked on the posterior aspect of the right scrotum and could see there was another area of fluctuance. An ovoid incision was made overlying this and there was spillage of purulent material. Cultures were taken times 2. We then treated these areas with electrocautery to stop any bleeding and irrigated out both wounds with saline and peroxide solution. We then covered the areas with gauze as a dry dressing. COMPLICATIONS: None. CONDITION: Stable. ANESTHESIA: General endotracheal. BLOOD LOSS: Minimal. TRANSINT:[id number] Voice Confirmation ID: [id number] DOCUMENT ID: [id number] OPERATIVE REPORT [id number] FRANCINE CERVANTES THELMA ADAM MD at 0719 CC: [id number] DICTATION DATE: 11/24/18 0749 UNION ORGANISER: 11/24/18 0802 DIS IN 11/27/18 [place] [id number]
--- NOTE | 2018-12-01 08:13 | MORECARE ---
CASE MANAGEMENT DISCHARGE SUMMARY PATIENT: FRANCINE CERVANTES UNIT: [id number] ADM DATE: 11/23/18 AGE: 53 : 61 SEX: M ROOM/BED: D.2222 AUTHOR: MARIAMA COURTNEY PHYSICIAN: REFERRING PHYSICIAN: HANK ALEJANDRE DO DATE OF SERVICE: 12/01/18 Discharge Plan Patient Name: FRANCINE CERVANTES Facility: [facility]:[place] : 1965 Planned Disposition: Home Anticipated Discharge Date: Discharge Date: 11/27/2018 Expected LOS: 0 Initial Reviewer: [email or web address] Initial Review Date: 11/23/2018 Generated: 12/01/18 9:12 am Comments DCP- Discharge Planning Updated by [email or web address]: Elizabeth Miranda on 11/25/18 4:[address] Patient Name: FRANCINE CERVANTES Admission Status: Elective Accout number: [id number] Admission Date: 11-23-2018 : 1965 Admission Diagnosis: Attending: HANK ALEJANDRE Current LOS: 2 Anticipated DC Date: Planned Disposition: Home Primary Insurance: [email or web address] Discharge Planning Comments: CM MET WITH PATIENT AND HIS ABOUT DC NEEDS. STATES PLANS TO DC TO HOME, GETS ALL DME FROM [facility] AND DENIES ANY NEEDS AT THIS TIME. CM TO FOLLOW AND ASSIST. Manager Behavior: Elizabeth Miranda DCPIA - Discharge Planning Initial Assessment Updated by [email or web address]: Elizabeth Miranda on 11/25/18 5:05 pm * Is the patient Alert and Oriented? Yes * Preadmission Environment Home with Family * Other Equipment HOPITAL BED, BIPAP, STATES PATEL'S FOR DME * List name and contact numbers for known caregivers / representatives who currently or will assist patient after discharge: ELIDA, SPOUSE, * Additional services required to return to the preadmission environment? No * Can the patient safely return to the preadmission environment? Yes * Has this patient been hospitalized within the prior 30 days at any hospital? No Last DP export: 11/25/18 4:08 p Patient Name: FRANCINE CERVANTES Page [id number] at 0813 All edits/amendments must be made on the electronic document DICTATION DATE: 12/01/18811 POWDER CORE TESTER: JACKELIN 12/01/18811 RPT#: [id number] DC DATE:11/27/18 STATUS: DIS IN [facility] [address] [place] [address] END OF REPORT
== END 2018-11-27 13:45 | disposition home or self-care (01) | DRG 717 ==
LOC: D.MS 11:31
PROVIDERS: Family Medicine; Surgery; ADMIT Family Medicine; ATTEND Family Medicine
PROC: 0VC50ZZ Extirpation of Matter from Scrotum, Open Approach (ICD-10-PCS; 2018-11-24)
PROC: 0HDAXZZ Extraction of Inguinal Skin, External Approach (ICD-10-PCS; principal; 2018-11-24 07:15)
DX: N49.2 Inflammatory disorders of scrotum (principal); Z68.43 Body mass index [BMI] 50.0-59.9, adult; D68.9 Coagulation defect, unspecified; E11.65 Type 2 diabetes mellitus with hyperglycemia; E13.40 Other specified diabetes mellitus with diabetic neuropathy, unspecified; E66.01 Morbid (severe) obesity due to excess calories; J45.909 Unspecified asthma, uncomplicated; G47.33 Obstructive sleep apnea (adult) (pediatric); Z79.01 Long term (current) use of anticoagulants; K21.9 Gastro-esophageal reflux disease without esophagitis; F32.9 Major depressive disorder, single episode, unspecified; B95.1 Streptococcus, group B, as the cause of diseases classified elsewhere

== ENCOUNTER → 2019-01-13 17:03 | Outpatient (CLI) | payer OTHER, MEDICARE ==
[2018-11-24 10:51] VITALS: BMI 51.7
[~2019-01-13 17:03] MED LIST changes: +ATIVAN1 MG PO; +AUGMENTIN 875-11 TAB PO; +HUMALOG 30100 UNITS/ SC; +NEURONTIN600 MG PO
== END | disposition home or self-care (01) ==
LOC: D.US 17:00
PROVIDERS: ATTEND Family Medicine
DX: R60.0 Localized edema (principal)

== ENCOUNTER → 2019-02-06 11:14 | Outpatient (CLI) | payer OTHER, MEDICAID ==
[2018-11-24 10:51] VITALS: BMI 51.7
== END | disposition home or self-care (01) ==
LOC: D.CT 11:14
PROVIDERS: ATTEND Family Medicine
DX: I73.9 Peripheral vascular disease, unspecified (principal)

== ENCOUNTER 2019-02-13 15:44 | Observation (INO) | payer OTHER ==
[~2019-02-13] VITALS: Ht 175.3 cm; Wt 158.0 kg
--- NOTE | ~2019-02-13 | HEMODYNAMI ---
PATIENT:FRANCINE CERVANTES MEDICAL RECORD: [id number] : 61 [id number] ADMISSION DATE: 02/13/19 Generatedon:02/14/201916:52 Patient name: FRANCINE CERVANTES Patient #: [id number] SSN: [id number] : 1965 Date of study: 02/14/2019 Page: Of Hemodynamic Procedure Report Patient Data Patient Demographics Procedure consent was obtained First Name: FRANCINE Gender: Male Last Name: HELEN : 1965 Middle Initial: DB Age: 53 year(s) Patient #: [id number] Race: Unknown SSN: [id number] Additional ID: [id number] Contact details Address: [address] [place] [address] State: [place] City: [facility] Zip code: [address] Past Medical History Allergies Allergen Reaction Date Comments Reported Other allergy 02/14/2019 morphine Admission Admission Data Admission Date: 02/13/2019 Admission Time: 17:35 Arrival Date: 02/14/2019 Arrival Time: 0:00 Admit Source: Other Insurance Payor: Private Room #: D.2116 health insurance [facility] #: [id number] Height (in.): 68.9 BSA: 2.61 (m2) Height (cm.): 175 BMI: 51.27 (kg/m2) Weight (lbs.): 346.13 Weight (kg.): 157 Lab Results Lab Result Date: 02/14/2019 Lab Result Time: 0:00 Biochemistry Name Units Result Min Max BUN mg/dl 21 --(----)-* 7 18 Creatinine mg/dl 1.1 --(--*-)-- 0.6 1.3 CBC Name Units Result Min Max Hemoglobin g/dl 15.7 --(--*-)-- 13.5 17.5 Procedure Procedure Types Cath Procedure Diagnostic Procedure LHC LHC w/Coronaries Sedation Charges Moderate Sedation up to 30 minutes Peripheral Cath Diagnostic Procedure Digital Field Service Technician Peripheral Procedures Ibcjz-Nxzjxix-Tgo-Off Procedure Description Procedure Date Procedure Date: 02/14/2019 Procedure Start Time: 16:27 Procedure End Time: 16:44 Procedure Staff Name Function Loree Youssef MD Ordering physician Jason Woodward MD Performing Physician Hayde Da Silva RT Monitor Melissa Fowler RN Nurse Precious Hankins RT Scrub Indication Chest tightness Procedure Data Cath Procedure Fluoroscopy Diagnostic fluoroscopy Total fluoroscopy Time: 2.1 time: 2.1 min min Diagnostic fluoroscopy Total fluoroscopy dose: dose: 1495 mGy 1495 mGy Contrast Material Contrast Material Type Amount (ml) Isovue 300 173 Entry Location Entry Primary Successful Side Size Upsize Upsize Entry Closure Succes sful Closure Location (Fr) 1 (Fr) 2 (Fr) Remarks Device Remarks Femoral Right 5 Fr Exoseal artery Estimated blood loss: 10 ml Diagnostic catheters Device Type Used For End Catheter Placement MULTIPACK JL 4.0 5Fr Procedure catheter MULTIPACK 3DRC 5Fr Procedure catheter MULTIPACK Pigtail 5 Fr Ventriculography catheter Procedure Medications Medication Administration Route Dosage 0.9% NaCl I.V. 100 ml/hr Oxygen etCO2 Nasal cannula 2 l/min Lidocaine 2% added to field 20 Heparin Flush Bag added to field 2 bags (1000units/500ml NS) Versed I.V. 2 mg Fentanyl I.V. 100 mcg Hemodynamics Rest BSA: 2.61 (m2) HGB: 15.7 (g/dl) O2 Consumption: Estimated: 354.96 (ml/min) O2 Co nsumption indexed: Estimated:136 (ml/min/m) Heart Rate: 0 (bpm) Pressure Samples Time Site Value (mmHg) Purpose Heart Use Rate(bpm) 16:35 AO 179/64(104) Pullback 78 16:35 AO 150/100(121) Pullback 92 16:35 LV 126/19,15 Pullback 92 Gradients Valve Time Site 1 Site 2 Mean SEP/DFP Peak To Heart Use (mmHg) (sec/min) Peak Rate (mmHg) (bpm) Aortic 16:35 LV AO 8 10 78 179/64(104) Aortic 16:35 LV AO 0 4 0 92 126/19,15 150/100(121) Calculations Valve P-P Mean Valve Index Valve Source Name Gradient Area Flow (cm2) Aortic 0 0 0 0 Snapshots Pre Cath Intra NCS Post Cath Vital Signs Time Heart Resp SPO2 etCO2 NIBP (mmHg) Rhythm Pain Sedation Rate (ipm) (%) (mmHg) Status Level (bpm) 16:18:19 86 19 99 23 155/107(129) NSR 0 (11) 10(A) , No pain 16:22:29 85 16 97 35.8 151/100(116) NSR 0 (11) 10(A) , No pain 16:26:37 81 21 98 41.8 144/97(116) NSR 0 (11) 10(A) , No pain 16:30:42 84 13 96 35 139/99(125) NSR 0 (11) 9(A) , No pain 16:34:46 90 13 96 14.4 154/94(132) NSR 0 (11) 9(A) , No pain 16:38:56 93 29 96 42.6 162/100(126) NSR 0 (11) 9(A) , No pain 16:43:08 88 23 96 40.3 162/96(125) NSR 0 (11) 10(A) , No pain 16:47:22 85 25 97 41.1 161/95(120) NSR 0 (11) 10(A) , No pain Medications Time Medication Route Dose Verified Delivered Reason Notes Effe ctiveness by by 16:16:49 0.9% NaCl I.V. 100 Jason Torres used for ml/hr Crissy Malcolm procedure MD ROSE 16:16:55 Oxygen etCO2 2 Jason Olearya used for Nasal l/min Crissy Malcolm procedure cannula MD ROSE 16:16:59 Lidocaine 2% added 20ml Jason Gomez used for to vial Crissy Crissy procedure field MD ALVARADO 16:17:09 Heparin Flush added 2 Jason Jason used for Bag to bags Crissy Crissy procedure (1000units/500ml field MD ALVARADO NS) 16:25:34 Versed I.V. 2 mg Jason Olearya for Crissy Malcolm sedation MD ROSE 16:25:41 Fentanyl I.V. 100 Jason Olearya for mcg Crissy Malcolm sedation MD ROSEroping tender Log Time Note 16:00:06 Admit Source: Other 16:00:09 Arrival Date: 02/14/2019 12:00:00 AM 16:00:44 Insurance Payor : Private health insurance 16:02:33 Lab Result : Hemoglobin 15.7 g/dl 16:02:33 Lab Result : Creatinine 1.1 mg/dl 16:02:33 Lab Result : BUN 21 mg/dl 16:03:29 Indication : Chest tightness 16:03:49 ACC Patient presents with Stable Angina CCS Anginal Class 2--Slight limitation of ordinary activity. 16:03:54 Procedure Status Urgent Heart Cath (IP). 16:03:57 Melissa Fowler RN sent for patient. Start room use. 16:03:59 Time tracking: Regular hours (M-F 7:00 - 5:00) 16:04:04 Plan of Care:Hemodynamics will remain stable., Cardiac rhythm will remain stable., Comfort level will be maintained., Respiratory function will remain adequate., Patient/ family verbilizes understanding of procedure., Procedure tolerated without complication., Recovers from procedure without complications.. 16:04:21 Patient received from Med II to CCL 2 Alert and oriented. Tansferred to table in Supine position. 16:04:23 Signed procedure consent form obtained from patient. 16:04:37 2) 60-89 Mildly reduced kidney function, and other findings (as for stage 1) point to kidney disease. 16:04:53 Maximum allowable contrast dose (3.7 X eGFR X 0.75)205 ml. 16:05:19 Patient Height : 68.9 inches 16:05:23 Patient Weight : 346.13 lbs 16:11:17 Risk of Mortality: .1 16:11:22 Risk of blood transfusion: 1. 16:11:26 Risk of CRISTINA: .7 16:16:49 0.9% NaCl 100 ml/hr I.V. was administered by Melissa Fowler RN; used for procedure; Verbal order read back and verified. 16:16:55 Oxygen 2 l/min etCO2 Nasal cannula was administered by Melissa Fowler RN; used for procedure; Verbal order read back and verified. 16:16:59 Lidocaine 2% 20ml vial added to field was administered by Jason Woodward MD; used for procedure; Verbal order read back and verified. 16:17:09 Heparin Flush Bag (1000units/500ml NS) 2 bags added to field was administered by Jason Woodward MD; used for procedure; Verbal order read back and verified. 16:17:17 Vital chart was started 16:22:30 Warm blankets applied, and mitesh hugger turned on for patient comfort. 16:22:30 Correct patient and procedure confirmed by team. 16:22:31 ECG and BP/O2 sat monitors applied to patient. 16:22:33 Baseline sample Acquired. 16:22:40 Baseline sample Acquired. 16:22:45 Baseline sample Acquired. 16:22:50 Rhythm: sinus rhythm 16:22:58 Full Disclosure recording started 16:23:08 H&P Date Dictated: 02/13/2019 Within 30 days and on chart., H&P Addendum completed by physician on day of procedure. (MUST COMPLETE FOR ALL OUTPATIENTS). 16:23:10 Pre-procedure instructions explained to patient. 16:23:12 Family in waiting room. 16:23:14 Patient NPO since Midnight. 16:24:18 Patient allergic to Other allergymorphine 16:24:21 Is the patient allergic to Iodine/contrast media? No. 16:24:22 Was the patient premedicated? Yes 16:24:24 Is patient on blood thinner?Yes 16:24:32 ACC The patient was administered the following blood thiners within the last 24 hours: Eliquis 16:24:38 Patient diabetic? Yes. 16:24:44 If diabetic: On Metformin? No 16:24:51 Snore? Yes 16:24:52 Sleep apnea? Yes 16:24:56 Dentures? No ? 16:25:01 Patient pain scale 0/10 ?. 16:25:07 IV patent on arrival in left forearm with 0.9% NaCl at O. 16:25:11 Lab results completed and on chart. 16:25:15 Stress Test: no; N/A ? 16:25:19 Right groin area was prepped with chlora-prep and draped in sterile fashion 16:25:20 Alarms reviewed by R. N. 16:25:21 Sharps counted by scrub and verified by R.N. 16:25:21 Physician paged 16:25:22 Physician arrived 16:25:24 --------ALL STOP TIME OUT------ 16:25:25 Final Timeout: patient, procedure, and site verified with staff and physician. All members of the team are in agreement. 16:25:28 Right groin site verified by team. 16:25:32 Fire Safety Assessment: A--An alcohol-based skin anteseptic being used preoperatively., C--Open oxygen or nitrous oxide is being used., D--An ESU, laser, or fiber-optic light is being used. 16:25:34 Versed 2 mg I.V. was administered by Melissa Fowler RN; for sedation; Verbal order read back and verified. 16:25:38 Physical assessment completed. ASA score P 3 - A patient with severe systemic disease as per Jason Woodward MD. 16:25:41 Fentanyl 100 mcg I.V. was administered by Melissa Fowler RN; for sedation; Verbal order read back and verified. 16:25:43 Sedation plan: IV Moderate Sedation Medication:Versed, Fentanyl 16:25:49 Use device set Femoral Dx 16:25:52 Procedure started. 16:27:26 ACIST Syringe (73294) opened to sterile field. 16:27:26 Bag Decanter (2002S) opened to sterile field. 16:27:28 Medline Cath Pack ([id number]) opened to sterile field. 16:27:29 ACIST Hand Control (82971) opened to sterile field. 16:27:29 ACIST Manifold (99087) opened to sterile field. 16:27:31 DIAGNOSTIC Multipack 5Fr catheter set (AL9428) opened to sterile field. 16:27:33 SHEATH 5FR [place] (HWE854) opened to sterile field. 16:27:33 EMERALD Guide Wire (921-883) opened to sterile field. 16:27:42 Local anesthetic to right femoral artery with Lidocaine 2% by Jason Woodward MD.INITIAL ACCESS ONLY 16:27:54 A 5 Fr sheath was inserted into the Right Femoral artery 16:30:40 A MULTIPACK JL 4.0 5Fr catheter was advanced over the wire and used for Procedure. 16:30:43 LCA angiography performed. 16:32:20 Catheter removed. 16:32:28 A MULTIPACK 3DRC 5Fr catheter was advanced over the wire and used for Procedure. 16:32:45 RCA angiography performed. 16:33:21 ACCDominant side:Right 16:33:23 Catheter removed. 16:33:37 A MULTIPACK Pigtail 5 Fr catheter was advanced over the wire and used for Ventriculography. 16:34:27 LV gram done using SOLORZANO 16:35:24 EF : 55 % 16:35:41 Abdominal angiogram w/ runoff was performed. 16:38:06 Left leg runoff performed. 16:39:18 Right leg runoff performed. 16:41:43 Sheath removed intact; hemostasis achieved with Exoseal to the Right Femoral artery. 16:41:45 Procedure ended.(Physican Out) 16:42:10 Fluoroscopy time 02.10 minutes. 16:42:17 Fluoroscopy dose: 1495 mGy 16:42:17 Flurop Dose total: 1495 16:42:26 Dose Area Product 487800 mGy/cm. 16:42:30 Contrast amount:Isovue 300 173ml. 16:42:32 Maximum allowable dose exceeded? No. 16:42:34 Sharps counted by scrub and verified by R.N. 16:42:46 Insertion/operative site no bleeding no hematoma. 16:42:51 Post-op/insertion site Right Femoral artery dressed using a 4 x 4 and Tegaderm. 16:42:56 Post right femoral artery:stable 16:43:12 Post-procedure physical assessment completed. ASA score P 2 - A patient with mild systemic disease as per Jason Woodward MD. 16:43:20 Post procedure rhythm: unchanged. 16:43:24 Estimated blood loss: 10 ml 16:43:26 Post procedure instruction explained to patient.Patient verbalizes understanding. 16:44:09 Procedure type changed to Cath procedure, Diagnostic procedure, LHC, LHC w/Coronaries, Sedation Charges, Moderate Sedation up to 30 minutes, Peripheral Cath Diagnostic Procedure, Digital Field Service Technician Peripheral Procedures, Dvyxy-Wvlzleq-Xeo-Off 16:44:12 Procedure and supply charges have been captured, reviewed, submitted and are correct. 16:44:32 LHC Findings: mild to moderate CAD (<70%) 16:44:37 AFRO Findings: PVD: mild to moderate (<70%) 16:44:41 See physician's report for complete and final results. 16:44:44 Report given to [facility]. 16:44:48 Patient transfered to [facility] with Bed. 16:44:51 Procedure ended. 16:44:51 Full Disclosure recording stopped 16:44:58 End room use (Document Last) 16:52:22 Vital chart was stopped Device Usage Item Name Manufacture Quantity Catalog Hospital Part Current Minimal L ot# / Number Charge Number Stock Stock Serial# Code ACIST Acist 1 [id number] 131634 528545 159414 20 Syringe Medical (90829) Systems Inc Bag Microtek 1 2001S 073374 03184 658225 5 Decanter Medical Inc. () Medline Medline 1 [id number] 705621 03232 779043 5 Cath Pack ([id number]) ACIST Hand Acist 1 63777 947325 945753 559274 5 Control Medical (80069) Systems Inc ACIST Acist 1 05480 639854 230119 752475 5 Manifold Medical (92019) Systems Inc DIAGNOSTIC Cardinal 1 ZZ8573 669318 93764 935574 30 Multipack Health 5Fr catheter set (RS0587) SHEATH 5FR Terumo 1 AJN003 350207 015678 546999 5 [place] (RVZ943) EMERALD Cardinal 1 085-106 174882 954491 728118 5 Guide Wire Health (108-792) MULTIPACK Cardinal 1 820506 5 JL 4.0 5Fr Health catheter MULTIPACK Cardinal 1 477693 5 3DRC 5Fr Health catheter MULTIPACK Cardinal 1 [id number] 5 Pigtail 5 Health Fr catheter Signature Audit Bernie Stage Time Signature Unsigned Intra-Procedure 02/14/2019 Hayde Da Silva 4:48:36 PM RT(R) Intra-Procedure 02/14/2019 Melissa Fowler 4:50:12 PM RN Intra-Procedure 02/14/2019 Jason Javier 4:52:20 PM Perico ALVARADO Signatures Performing Physician : Signature : Jason Woodward MD Date : Time : Monitor : Hayde Da Silva Signature : RT Date : Time : Nurse : Melissa Fowler RN Signature : Date : Time : [address] [place] [address]
[~2019-02-13 15:44] MED LIST changes: -ATIVAN1 MG PO
[2019-02-13 16:26] VITALS: BP 127/74
[2019-02-13 16:41] LABS: BASOPHILS 0.1 % (0-2); EOSINOPHILS 1.6 % (0-7); HEMATOCRIT 46.4 % (42.0-54.0); HEMOGLOBIN 15.7 g/dL (13.5-17.5); IMMATURE GRANULOCYTES 1.6 % (0-5); LYMPHOCYTES 21.6 % (15-50); MCH 29.4 pg (26.0-34.0); MCHC 33.8 g/dL (31.0-37.0); MCV 86.9 fL (80.0-100.0); MONOCYTES 10.7 % (2-11); NEUTROPHILS 64.4 % (40-80); PLATELET COUNT 165 10x3/uL (130-400); RBC 5.34 10x6/uL (4.20-6.10); RDW 13.8 % (11.5-14.5); WBC 7.5 10x3/uL (4.8-10.8)
[2019-02-13 16:46] LABS: APTT 28.9 SECONDS (22.8-39.4); INR 1.18 (0.85-1.17); PROTIME 14.5 SECONDS (11.6-15.0)
[2019-02-13 16:47] LABS: D-DIMER-QUANTITATIVE < 0.27 ug/mLFEU (0.20-0.54)
[2019-02-13 16:52] LABS: CALC OSMOLALITY 287 mosm/kg (275-300); CALCIUM 8.8 mg/dL (8.5-10.1); CARBON DIOXIDE 23.8 mmol/L (21.0-32.0); CHLORIDE - SERUM 103 mmol/L (98-107); CREATININE - SERUM 1.1 mg/dL (0.6-1.3); POTASSIUM - SERUM 4.3 mmol/L (3.5-5.1); SODIUM 138 mmol/L (136-145); UREA NITROGEN 21 mg/dL (7-18); eGFR NON AFRICAN AMERICAN 74 mL/min (90-120)
[2019-02-13 16:53] LABS: GLUCOSE 257 mg/dL (74-106)
[2019-02-13 17:00] VITALS: BP 121/89
[2019-02-13 17:08] LABS: ALBUMIN 3.7 g/dL (3.4-5.0); ALKALINE PHOSPHATASE 94 U/L (46-116); ALT (SGPT) 30 U/L (10-68); BILIRUBIN - TOTAL 0.43 mg/dL (0.2-1.3); CREATINE KINASE 54 UL (21-232); PRO BNP 36 pg/mL (0-125); PROTEIN - SERUM 6.5 g/dL (6.4-8.2)
[2019-02-13 17:09] LABS: TROPONIN-I < 0.017 ng/mL (0.000-0.060)
--- NOTE | 2019-02-13 18:30 | NUR ---
PT GIVEN RENAL DINNER TRAY PER DIETARY ORDERS.
--- NOTE | 2019-02-13 19:00 | NUR ---
HAND OFF REPORT GIVEN TO MILTON WILLS. PT WILL BE TRANSPORTED FROM ED TO ASSIGNED ROOM, 2115, WHEN ROOM IS CLEAN AND READY FOR PT.
--- NOTE | 2019-02-13 19:10 | NUR ---
PT RESTING ON BED. NO S/S OF ACUTE DISTRESS NOTED. EMERALD NAJERA AT BEDSIDE.
--- NOTE | 2019-02-13 19:58 | NUR ---
INPATIENT ROOM CLEAN. PT LEFT ED VIA STRETCHER AT THIS TIME.
[2019-02-13] MEDS ORDERED: BREO ELLIPTA 11 EACH INH (20:47)
[2019-02-13] MEDS ORDERED: ATIVAN1 MG PO (20:59)
[2019-02-13 22:22] VITALS: BP 133/72; BMI 51.2
[2019-02-13 23:29] LABS: CKMB 0.9 U/L (0.0-3.6); CREATINE KINASE 54 UL (21-232)
[2019-02-13 23:33] LABS: TROPONIN-I < 0.017 ng/mL (0.000-0.060)
[2019-02-14 00:30] VITALS: BP 142/72
[2019-02-14 04:00] VITALS: BP 119/72
[2019-02-14 05:38] LABS: BASOPHILS 0.6 % (0-2); EOSINOPHILS 3.9 % (0-7); HEMATOCRIT 45.3 % (42.0-54.0); HEMOGLOBIN 15.5 g/dL (13.5-17.5); IMMATURE GRANULOCYTES 2.6 % (0-5); LYMPHOCYTES 34.3 % (15-50); MCH 29.8 pg (26.0-34.0); MCHC 34.2 g/dL (31.0-37.0); MCV 86.9 fL (80.0-100.0); MEAN PLATELET VOLUME 12.3 fL (7.4-10.4); MONOCYTES 9.4 % (2-11); NEUTROPHILS 49.2 % (40-80); PLATELET COUNT 179 10x3/uL (130-400); RBC 5.21 10x6/uL (4.20-6.10); RDW 13.7 % (11.5-14.5); WBC 6.9 10x3/uL (4.8-10.8)
[2019-02-14 06:38] LABS: CALC OSMOLALITY 282 mosm/kg (275-300); CALCIUM 8.4 mg/dL (8.5-10.1); CARBON DIOXIDE 28.9 mmol/L (21.0-32.0); CHLORIDE - SERUM 103 mmol/L (98-107); CKMB 1.3 U/L (0.0-3.6); CREATINE KINASE 60 UL (21-232); CREATININE - SERUM 1.1 mg/dL (0.6-1.3); GLUCOSE 191 mg/dL (74-106); MAGNESIUM - SERUM 1.8 mg/dL (1.8-2.4); PHOSPHOROUS 3.6 mg/dL (2.5-4.9); POTASSIUM - SERUM 3.5 mmol/L (3.5-5.1); SODIUM 138 mmol/L (136-145); TROPONIN-I < 0.017 ng/mL (0.000-0.060); UREA NITROGEN 19 mg/dL (7-18); eGFR NON AFRICAN AMERICAN 74 mL/min (90-120)
--- NOTE | 2019-02-14 07:15 | NUR ---
RECEIVED PT IN BED AAOX4 RESP UNLABORED C/O GENERALIZED PAIN 09/12 NO OTHER NEEDS NAD NOTED
[2019-02-14 08:00] VITALS: BP 125/80
[2019-02-14 09:17] LABS: CHOL - HDL RATIO 4.6 ratio (2.3-4.9); LDL-HDL RATIO 2.4 ratio (1.5-3.5)
[2019-02-14 12:00] VITALS: BP 147/76
[2019-02-14 16:00] VITALS: BP 138/90
--- NOTE | 2019-02-14 16:04 | CN ---
PATIENT NAME:FRANCINE CERVANTES MEDICAL RECORD: [id number] : 61 LOCATION:[facility] D.2116 ADMIT DATE: 02/13/19 ACCOUNT: [id number] CONSULTING PHYSICIAN: RAMSEY TARIQ MD REFERRING PHYSICIAN: ALEAH TOTH MD DATE OF CONSULTATION: 02/14/2019 HISTORY OF PRESENT ILLNESS: A 53-year-old gentleman with history of diabetes mellitus, hypertension as well as recurrent pulmonary emboli, admitted with chest pain. Symptoms are somewhat similar, but not typical for his previous pulmonary embolus, does have a history of diabetes mellitus, recently diagnosed with peripheral vascular disease via CT. We are asked to see him concerning his cardiovascular status. PAST MEDICAL HISTORY: 1. History of recurrent pulmonary embolus, on chronic NOAC therapy. 2. Hypertension. 3. Hyperlipidemia. 4. Osteoarthritis, status post knee replacement. 5. Diabetes mellitus. MEDICATIONS: Include Victoza 1.2 mg daily, insulin per scale, omeprazole 20 mg p.o. b.i.d., Singulair 10 at bedtime, trazodone 300 at bedtime, Toradol 10 q.6 p.r.n., topiramate 100 mg b.i.d., Lexapro 20 every day, Wellbutrin 200 b.i.d., Imdur 30 every day, lisinopril/HCT 03/29 daily, Eliquis 5 b.i.d. SOCIAL HISTORY: Nonsmoker, nondrinker. No set exercise program. He is able to care of all his ADLs. ALLERGIES: MORPHINE. REVIEW OF SYSTEMS: The patient reports easy bruising but reports no swollen glands. The patient reports no fever, no night sweats, no significant weight gain, no significant weight loss. No significant exercise tolerance. The patient reports no dry eyes, no irritation, no vision change. Patient reports no difficulty hearing and no ear pain. Patient reports no frequent nose bleeds or nose and sinus problems. Patient reports on arm pain on exertion. No shortness of breath while lying down. No history of heart murmur. Patient reports no cough, no wheezing or coughing up blood. Patient reports no abdominal pain, no vomiting. Normal appetite. No diarrhea and not vomiting blood. No nausea and no constipation. Patient reports no incontinence. No difficulty urinating. No hematuria. No increased frequency. Patient reports no muscle aches. No weakness, no arthralgias, no back pain. No swelling of the extremities. Patient reports no abnormal mole, no jaundice, no rashes. Reports no loss of consciousness. No weakness and no numbness. No seizures, dizziness, or headaches. The patient reports no depression, no sleep disturbance, feeling safe in a relationship and no alcohol abuse. Patient reports on fatigue. Reports no runny nose or sinus pressure. No itching, no hives, and no frequent sneezing. PHYSICAL EXAMINATION: GENERAL: Obese, in no acute distress. VITAL SIGNS: Blood pressure 119/72, pulse 72 and regular. HEENT: Normocephalic, atraumatic. NECK: No bruits noted. CONSULT REPORT [id number] FRANCINE CERVANTES HEART: Regular, II/ systolic ejection murmur. LUNGS: Diminished breath sounds bilaterally. ABDOMEN: Soft, nontender. EXTREMITIES: Pulses are decreased, palpable, 1+. There is no edema. DIAGNOSTIC DATA: EKG shows right bundle in right axis, this from previous RV strain. IMPRESSION: Acute coronary syndrome, multiple risk factors. PLAN: Plan for angiography, intervention based on above. ADDENDUM: He has been having claudication type symptomatology. CTA shows distal disease with calcification. We will plan for AFRO at the same setting, intervention based on the above. TRANSINT:[id number] Voice Confirmation ID: [id number] DOCUMENT ID: [id number] RAMSEY ATRIQ MD at 1604 CC: [id number] DICTATION DATE: 02/14/19817 PR SPECIALIST: 02/14/19 09 [facility] [place] [id number] [place] [address]
--- NOTE | 2019-02-14 19:16 | NUR ---
RECEIVED BEDSIDE REPORT. PATIENT IS ALERT AND ORIENTED. PATIENT CONTINUES ON BEDREST. RIGHT GROIN DRESSING IS C/D/I NO SIGHS OF SWELLING OR BRUISING. NEEDS MET. NO S/S OF DISTRESS. NO C/O PAIN. CALL LIGHT WITHIN REACH. WILL CPOC.
[2019-02-14 20:00] VITALS: BP 131/76
--- NOTE | 2019-02-14 20:09 | NUR ---
LATE ENTRY... ON 02/14/[address] JOSUE AND ER NURSE CAME TO FLOOR TO SEE PATIENT. DR. JOSUE GAVE ORDERS FOR A CTA OF ABDOMEN AND AORTA AND TYLENOL FOR BACK PAIN. DR JOSUE CALLED TO FLOOR AND SAID THAT HE WAS PUTTING ORDERS IN FOR A GLUCAGON TO BE GIVEN AND GLUCAGON DRIP. GLUCAGON ADMINISTERED. WAITING ON PHARMACY FOR GLUCAGON DRIP. ASSISTED RADIOLOGY TO TRANSPORT PATIENT FOR CT. BROUGHT PATIENT BACK TO FLOOR AND WAS TOLD TO TAKE PATIENT TO ICU. ARRIVED AT ICU SPOKE WITH AURE ROSE. PATIENT GIVEN AND ROOM. GAVE REPORT TO LISBETH ROSE.
[2019-02-15] VITALS: BP 144/78
[2019-02-15 04:00] VITALS: BP 121/76
[2019-02-15 05:04] LABS: BASOPHILS 0.5 % (0-2); EOSINOPHILS 2.9 % (0-7); HEMATOCRIT 46.4 % (42.0-54.0); HEMOGLOBIN 15.7 g/dL (13.5-17.5); IMMATURE GRANULOCYTES 3.4 % (0-5); LYMPHOCYTES 29.3 % (15-50); MCH 29.5 pg (26.0-34.0); MCHC 33.8 g/dL (31.0-37.0); MCV 87.2 fL (80.0-100.0); MEAN PLATELET VOLUME 12.3 fL (7.4-10.4); NEUTROPHILS 53.9 % (40-80); PLATELET COUNT 175 10x3/uL (130-400); RBC 5.32 10x6/uL (4.20-6.10); WBC 5.9 10x3/uL (4.8-10.8)
[2019-02-15 05:24] LABS: ANION GAP 12.5 mmol/L (8-16); CALCIUM 8.5 mg/dL (8.5-10.1); CARBON DIOXIDE 24.6 mmol/L (21.0-32.0); CREATININE - SERUM 1.1 mg/dL (0.6-1.3); MAGNESIUM - SERUM 2.1 mg/dL (1.8-2.4); PHOSPHOROUS 4.2 mg/dL (2.5-4.9)
[2019-02-15 05:33] LABS: POTASSIUM - SERUM 4.1 mmol/L (3.5-5.1)
[2019-02-15 09:12] VITALS: BP 132/76
[2019-02-15 12:08] VITALS: BP 109/63
--- NOTE | 2019-02-15 14:30 | NUR ---
telemtry sr. resp even and ul. call light in reach. will cont. plan of care.
[2019-02-15 17:11] VITALS: BP 95/56
--- NOTE | 2019-02-15 19:30 | NUR ---
RECEIVED BEDSIDE REPORT. PATIENT IS ALERT AND ORIENTED, RESTING COMFORTABLY IIN BED. RESPIRATIONS ARE EVEN AND UNLABORED. NO S/S OF DISTRESS. NO C/O PAIN. CALL LIGHT WITHIN REACH. WILL CPOC.
[2019-02-15 20:38] VITALS: BP 107/59
[2019-02-16] VITALS: BP 109/57
[2019-02-16 04:30] VITALS: BP 122/65
[2019-02-16 06:32] LABS: BASOPHILS 0.4 % (0-2); EOSINOPHILS 2.6 % (0-7); HEMATOCRIT 43.7 % (42.0-54.0); HEMOGLOBIN 14.8 g/dL (13.5-17.5); IMMATURE GRANULOCYTES 2.8 % (0-5); LYMPHOCYTES 29.9 % (15-50); MCH 29.5 pg (26.0-34.0); MCHC 33.9 g/dL (31.0-37.0); MCV 87.2 fL (80.0-100.0); MEAN PLATELET VOLUME 12.5 fL (7.4-10.4); MONOCYTES 9.8 % (2-11); NEUTROPHILS 54.5 % (40-80); PLATELET COUNT 142 10x3/uL (130-400); RBC 5.01 10x6/uL (4.20-6.10); RDW 13.9 % (11.5-14.5)
[2019-02-16 06:43] LABS: ANION GAP 11.9 mmol/L (8-16); CALCIUM 8.2 mg/dL (8.5-10.1); CARBON DIOXIDE 26.8 mmol/L (21.0-32.0); CREATININE - SERUM 1.2 mg/dL (0.6-1.3); MAGNESIUM - SERUM 1.8 mg/dL (1.8-2.4); PHOSPHOROUS 3.8 mg/dL (2.5-4.9); POTASSIUM - SERUM 4.7 mmol/L (3.5-5.1)
[2019-02-16 09:08] VITALS: BP 121/66
--- NOTE | 2019-02-16 11:45 | OP ---
PATIENT NAME: FRANCINE CERVANTES MEDICAL RECORD: [id number] :61 LOCATION:D.M2 D.2116 ADMISSION DATE:02/13/19 SURGEON: RAMSEY TARIQ MD DATE OF OPERATION: 02/14/2019 PROCEDURES: Left heart catheterization, selective coronary angiography, right femoral artery approach. CATHETERS: A 5-Estonian sheath, 5/4 left and right Ira, and 5/4 pig. The procedure was well tolerated. The patient returned to the morrissey, sheath removed. ExoSeal device placed. FINDINGS: Left ventriculography in 30-degree SOLORZANO view: Normal wall motion and normal systolic function. CORONARY ANATOMY: LEFT MAIN: Left main is free of disease. LAD: Free of disease in the diagonal system. CIRCUMFLEX: Free of disease in the marginal system. RIGHT CORONARY ARTERY: Dominant artery, gives rise to PDA, free of disease. The pigtail catheter was drawn to the level of the renal arteries and aortofemoral runoff was performed. 1. Abdominal aorta shows no significant stenosis. Mild calcification, nonselective engagement. Nonselective angiography of both the right and left renal shows no significant stenosis. Right internal and external iliacs are widely patent. There is some wall disease but nothing flow obstructive. The superficial system including deep common superficial shows minimal wall disease with the distal vasculature past the total knee replacement showing diffuse disease, three-vessel runoff, however. 2. Left common internal and external iliac are patent with minimal diffuse wall disease. The superficial system again shows mild wall disease with no flow obstructive stenosis including deep superficial common and there appears to be 2-vessel runoff with diffuse distal disease, typical diabetic. IMPRESSION: Diffuse distal disease of the peripheral vasculature not amenable to intervention. Risk factor modification including tight glucose control obviously indicated at this point. TRANSINT:[id number] Voice Confirmation ID: [id number] DOCUMENT ID: [id number] RAMSEY TARIQ MD at 1145 CC: [id number] DICTATION DATE: 02/14/19 165 PHARMACY TECHNICIAN ASSISTANT: 02/15/19 0251 ADM IN [facility] [address] [place] [place] [id number]
[2019-02-16 13:39] VITALS: Ht 175.3 cm; Wt 158.0 kg
--- NOTE | 2019-02-16 16:06 | NUR ---
IV AND TELEMETRY DCD. DC PLANS GIVEN. UNDERSTANDING VOICED. ESCORTED TO CAR BY W/C.
--- NOTE | 2019-02-17 08:53 | MORECARE ---
CASE MANAGEMENT DISCHARGE SUMMARY PATIENT: FRANCINE CERVANTES UNIT: [id number] ADM DATE: 02/13/19 AGE: 53 : 61 SEX: M ROOM/BED: D.2116 AUTHOR: MARIAMA COURTNEY PHYSICIAN: REFERRING PHYSICIAN: ALEAH TOTH MD DATE OF SERVICE: 02/17/19 Discharge Plan Patient Name: FRANCINE CERVANTES [facility] [facility] 1965 Planned Disposition: Home Anticipated Discharge Date: 02/16/19 Discharge Date: 02/16/2019 Expected LOS: 3 Initial Reviewer: [email or web address] Initial Review Date: 02/17/2019 Generated: 02/17/19 9:53 am Coverage Notice Reviewer: [email or web address] Pepe Segura Notice Issued Date-Time: 02/13/2019 18:00 Notice Type: Medicare Outpatient Observation Notice Notice Delivered To: Patient Relationship to Patient: Tumbler Machine Operator Name: Delivery Method: HAND - Hand Delivered Mima Days: Prior Verbal Notification: Recipient Understood Notice: Recipient Signature: Med Rec Note Co-signed by Attending: Coverage Notice Comment: Patient Name: FRANCINE CERVANTES Page [phone] at 0853 All edits/amendments must be made on the electronic document DICTATION DATE: 02/17/19 0853 GARAGE MANAGER: JACKELIN 02/17/19 0853 RPT#: [id number] DC DATE:02/16/19 STATUS: DIS IN [facility] [address] [place] [address] END OF REPORT
== END 2019-02-16 16:07 ==
LOC: D.ER 15:44 → OBSVTIME 17:35 → D.M2 17:35 → D.SDCHOLD 02-14 13:35 → D.M2 02-14 13:35
PROVIDERS: Emergency Medicine; Internal Medicine Interventional Cardiology; ADMIT Internal Medicine Nephrology; ATTEND Internal Medicine Nephrology
DX: I24.9 Acute ischemic heart disease, unspecified (principal); I10 Essential (primary) hypertension; E78.5 Hyperlipidemia, unspecified; E11.9 Type 2 diabetes mellitus without complications; M19.90 Unspecified osteoarthritis, unspecified site; I70.219 Atherosclerosis of native arteries of extremities with intermittent claudication, unspecified extremity; E83.42 Hypomagnesemia; G47.33 Obstructive sleep apnea (adult) (pediatric); K21.9 Gastro-esophageal reflux disease without esophagitis; G89.29 Other chronic pain; E66.01 Morbid (severe) obesity due to excess calories; Z68.43 Body mass index [BMI] 50.0-59.9, adult

== ENCOUNTER → 2019-03-14 15:02 | Outpatient (CLI) | payer OTHER ==
[2019-02-16 13:39] VITALS: BMI 51.4
[~2019-03-14 15:02] MED LIST changes: +ATIVAN1 MG PO
== END | disposition home or self-care (01) ==
LOC: D.MRI 03-13 13:30
PROVIDERS: ATTEND Neurological Surgery
DX: M48.02 Spinal stenosis, cervical region (principal)

== ENCOUNTER 2019-04-08 21:19 | Inpatient (IN) | payer OTHER ==
[~2019-04-08] VITALS: Ht 175.3 cm; Wt 166.1 kg
[2019-04-08 21:41] LABS: BASOPHILS 0.5 % (0-2); EOSINOPHILS 1.8 % (0-7); HEMATOCRIT 43.9 % (42.0-54.0); IMMATURE GRANULOCYTES 2.7 % (0-5); LYMPHOCYTES 23.3 % (15-50); MCH 29.8 pg (26.0-34.0); MCHC 34.2 g/dL (31.0-37.0); MCV 87.3 fL (80.0-100.0); MEAN PLATELET VOLUME 11.7 fL (7.4-10.4); MONOCYTES 8.8 % (2-11); NEUTROPHILS 62.9 % (40-80); RBC 5.03 10x6/uL (4.20-6.10); RDW 14.5 % (11.5-14.5); WBC 7.8 10x3/uL (4.8-10.8)
[2019-04-08 21:42] LABS: PLATELET COUNT 185 10x3/uL (130-400)
[2019-04-08 21:47] LABS: ANION GAP 14.9 mmol/L (8-16); CALCIUM 8.9 mg/dL (8.5-10.1); CARBON DIOXIDE 23.6 mmol/L (21.0-32.0); CREATININE - SERUM 1.1 mg/dL (0.6-1.3); POTASSIUM - SERUM 4.5 mmol/L (3.5-5.1)
[2019-04-08 21:53] LABS: ALBUMIN 3.4 g/dL (3.4-5.0); BILIRUBIN - TOTAL 0.4 mg/dL (0.2-1.3); PROTEIN - SERUM 6.8 g/dL (6.4-8.2)
[2019-04-08 22:50] LABS: KETONE - SERUM NEGATIVE (NEGATIVE)
[2019-04-08 22:52] LABS: MAGNESIUM - SERUM 2.1 mg/dL (1.8-2.4)
--- NOTE | 2019-04-08 23:35 | NUR ---
ZOSYN STOPPED AT THIS TIME.
--- NOTE | 2019-04-08 23:37 | NUR ---
ZOSYN STOPPED AT THIS TIME.
--- NOTE | 2019-04-09 00:15 | NUR ---
WOUND CULTURE OBTAINED TO GROIN AND SENT TO LAB. FOUL ODOR NOTED TO GROIN AREA.
[2019-04-09 00:18] LABS: APPEARANCE CLEAR (CLEAR); BILIRUBIN NEGATIVE (NEGATIVE); COLOR YELLOW (YELLOW); GLUCOSE 1000 mg/dL (NEGATIVE); KETONE NEGATIVE (NEGATIVE); NITRITE NEGATIVE (NEGATIVE); PROTEIN NEGATIVE (NEGATIVE); UROBILINOGEN NORMAL (NORMAL)
--- NOTE | 2019-04-09 01:00 | NUR ---
RECEIVED PT TO FLOOR FROM ER VIA STRETCHER. PT AMBULATORY. REMOVED DRESSING FROM RIGHT LOWER LEG. SKIN DISCOLORED GOING AROUND LEG MIDCALF TO ANKLE THREE SMALL SORES WITH YELLOWISH DRAINAGE ON GAUZE. PT STATES HE HAS BEEN APPLYING SILVASORB GEL TO RIGHT LEG WOUNDS AND COVERING WITH GAUZE PADS BUT DOES NOT SEEM TO BE HEALING WELL AND IS BECOMING INCREASINGLY PAINFUL. LEFT LOWER LEG HAS THREE TO FOUR SMALL SORES WELL THAT APPEAR TO BE HEALING AND WITHOUT DRAINAGE OR PAIN. ABDOMINAL FOLDS ARE MOIST WITH RED YEASTY RASH. RED SWOLLEN ABSCESS IN SUPRA PUBIC AREA WITH YELLOW DRAINAGE. APPLIED 4X4'S AND ABD PAD TO ABSORB DRAINAGE. IV FLUIDS AND ABX INFUSING ON ARRIVAL. PT BROUGHT HOME CPAP TO BE USED AT NIGHT. PUT TELEMETRY ON PT. REVIEWED HISTORY AND UPDATED HOME MED LIST. BROUGHT PT SANDWICH AND DIET COLA. NO OTHER NEEDS. WILL REASSESS AND CONTINUE TO MONITOR.
[2019-04-09] MEDS ORDERED: HUMALOG 30100 UNITS/ SC (01:59)
[2019-04-09] MEDS ORDERED: LANTUS SOLOSTAR PEN SC (02:02)
[2019-04-09] MEDS ORDERED: BASAGLAR K100 UNIT/1 SC (02:05)
[2019-04-09] MEDS ORDERED: LYRICA150 MG PO (02:14)
[2019-04-09] MEDS ORDERED: ULTRAM50 MG PO (02:15)
[2019-04-09] MEDS ORDERED: CYANOCOBAL1000 MCG/4 SC (02:17)
[2019-04-09 02:43] VITALS: BP 151/88; BMI 52.7
[2019-04-09 04:00] VITALS: BP 151/88
[2019-04-09 06:19] LABS: BASOPHILS 0.5 % (0-2); EOSINOPHILS 2.6 % (0-7); HEMATOCRIT 39.3 % (42.0-54.0); HEMOGLOBIN 13.1 g/dL (13.5-17.5); IMMATURE GRANULOCYTES 2.4 % (0-5); LYMPHOCYTES 26.7 % (15-50); MCHC 33.3 g/dL (31.0-37.0); MCV 87.1 fL (80.0-100.0); MEAN PLATELET VOLUME 12.1 fL (7.4-10.4); MONOCYTES 10.1 % (2-11); NEUTROPHILS 57.7 % (40-80); RBC 4.51 10x6/uL (4.20-6.10); RDW 14.3 % (11.5-14.5); WBC 5.9 10x3/uL (4.8-10.8)
[2019-04-09 06:33] LABS: ANION GAP 11.9 mmol/L (8-16); CALCIUM 8.1 mg/dL (8.5-10.1); CARBON DIOXIDE 23.9 mmol/L (21.0-32.0); CREATININE - SERUM 1.1 mg/dL (0.6-1.3); MAGNESIUM - SERUM 2.1 mg/dL (1.8-2.4); PHOSPHOROUS 4.5 mg/dL (2.5-4.9)
[2019-04-09 06:34] LABS: POTASSIUM - SERUM 3.8 mmol/L (3.5-5.1)
[2019-04-09 06:51] LABS: PLATELET COUNT 133 10x3/uL (130-400)
[2019-04-09 08:41] VITALS: BP 110/50
--- NOTE | 2019-04-09 10:46 | NUR ---
PT ALERT X 4. BREATH SOUNDS CLEAR BILAT. TELEMETRY IN PLACE. IV TO LEFT FOREARM, PATENT, DRESSING CDI. DRESSING TO LEFT GROIN CHANGED. DRESSING TO RIGHT LOWER LEG CDI. LEFT LOWER LEG REDDENED WITH SCABS. PT REPORTING PAIN OF 6/10, MEDICATED PER ORDERS, WILL MONITOR. BED LOW, CALL LIGHT IN REACH. NO OTHER NEEDS AT THIS TIME.
[2019-04-09 12:06] VITALS: BP 136/82
[2019-04-09 17:36] VITALS: BP 125/68
[2019-04-09 20:00] VITALS: BP 130/65
[2019-04-10] VITALS: BP 117/51
[2019-04-10 04:00] VITALS: BP 96/40
[2019-04-10 06:21] LABS: BASOPHILS 0.5 % (0-2); EOSINOPHILS 2.6 % (0-7); HEMATOCRIT 38.5 % (42.0-54.0); HEMOGLOBIN 12.7 g/dL (13.5-17.5); IMMATURE GRANULOCYTES 3.3 % (0-5); LYMPHOCYTES 32.3 % (15-50); MCH 29.1 pg (26.0-34.0); MCV 88.1 fL (80.0-100.0); MEAN PLATELET VOLUME 11.7 fL (7.4-10.4); MONOCYTES 10.9 % (2-11); NEUTROPHILS 50.4 % (40-80); RBC 4.37 10x6/uL (4.20-6.10); RDW 14.4 % (11.5-14.5); WBC 5.7 10x3/uL (4.8-10.8)
[2019-04-10 06:38] LABS: PLATELET COUNT 163 10x3/uL (130-400)
[2019-04-10 06:39] LABS: ALBUMIN 2.6 g/dL (3.4-5.0); ANION GAP 13.6 mmol/L (8-16); BILIRUBIN - TOTAL 0.31 mg/dL (0.2-1.3); CALCIUM 8.1 mg/dL (8.5-10.1); CARBON DIOXIDE 23.4 mmol/L (21.0-32.0); CREATININE - SERUM 1.1 mg/dL (0.6-1.3); PROTEIN - SERUM 5.3 g/dL (6.4-8.2)
--- NOTE | 2019-04-10 07:10 | NUR ---
ALERT AND ORIENTED, RESTING IN BED WITH EYES CLOSED. RESPIRATIONS EVEN AND UNLABORED, CPAP ON. ON TELEMETRY SB 57 WITH BBB. IV TO LEFT FOREARM, NS INFUSING @ 100ML/HR. SITE PATENT WITHOUT REDNESS OR SWELLING. NO S/S OF ACUTE DISTRESS NOTED. ABCESS TO SUPRAPUBIC AREA, REDNESS TO FOLDS IN ABDOMEN. VENOUS STASIS ULCERS TO BLE, DRESSING TO RLE C/D/I. DENIES ANY NEEDS AT THIS TIME. CALL LIGHT IN REACH. WILL CONTINUE TO MONITOR.
[2019-04-10 08:11] VITALS: BP 85/45
[2019-04-10 14:04] VITALS: BP 141/69; Ht 175.3 cm; Wt 166.1 kg
--- NOTE | 2019-04-10 15:30 | NUR ---
Right lower extremity has 3 open wounds measuring 2cm x 2cm. Left lower extremity has numerous scabs. Recommended covering wounds on right leg with adaptic/xeroform gauze and wrapping with kerlix. Leave left leg open to air.
--- NOTE | 2019-04-10 16:08 | NUR ---
I have reviewed this patient and I concur with the Shift Assessment completed by the Licensed Practical Nurse today this shift.
[2019-04-10 16:18] VITALS: BP 135/67
--- NOTE | 2019-04-10 18:25 | NUR ---
ALERT AND ORIENTED, RESTING IN BED. NO C/O PAIN. NO S/S OF ACUTE DISTRESS NOTED. DENIES ANY NEEDS AT THIS TIME. CALL LIGHT IN REACH. WILL CONTINUE TO MONITOR.
[2019-04-10 20:00] VITALS: BP 132/71
--- NOTE | 2019-04-10 21:00 | NUR ---
A/O WITH NO SIGNS OF ACUTE DISTRESS. IV TO THE LT FOREARM WITH NO REDNESS OR SWELLING NOTED. DISCOLORATION NOTED TO THE GEMA LEGS WITH DRESSING TO THE RT LEG. GAVE PRN PAIN MEDS. DENIES NO OTHER NEEDS AT THI TIME. CONTINUE PLAN OF CARE.
[2019-04-11] VITALS: BP 116/74
[2019-04-11 04:00] VITALS: BP 116/63
[2019-04-11 06:41] LABS: BASOPHILS 0.4 % (0-2); EOSINOPHILS 4.2 % (0-7); HEMATOCRIT 39.5 % (42.0-54.0); IMMATURE GRANULOCYTES 4.2 % (0-5); LYMPHOCYTES 32.2 % (15-50); MCHC 32.9 g/dL (31.0-37.0); MCV 88.2 fL (80.0-100.0); MONOCYTES 10.6 % (2-11); NEUTROPHILS 48.4 % (40-80); PLATELET COUNT 154 10x3/uL (130-400); RBC 4.48 10x6/uL (4.20-6.10); RDW 14.3 % (11.5-14.5); WBC 4.7 10x3/uL (4.8-10.8)
[2019-04-11 06:59] LABS: ALBUMIN 2.5 g/dL (3.4-5.0); ALKALINE PHOSPHATASE 70 U/L (46-116); ALT (SGPT) 26 U/L (10-68); BILIRUBIN - TOTAL 0.29 mg/dL (0.2-1.3); CALC OSMOLALITY 289 mosm/kg (275-300); CARBON DIOXIDE 23.1 mmol/L (21.0-32.0); CHLORIDE - SERUM 110 mmol/L (98-107); CREATININE - SERUM 0.9 mg/dL (0.6-1.3); PROTEIN - SERUM 5.4 g/dL (6.4-8.2); SODIUM 140 mmol/L (136-145); UREA NITROGEN 19 mg/dL (7-18); eGFR NON AFRICAN AMERICAN > 90 mL/min (90-120)
[2019-04-11 07:00] LABS: GLUCOSE 254 mg/dL (74-106)
--- NOTE | 2019-04-11 07:00 | NUR ---
ALERT AND ORIENTED, RESTING IN BED. NO C/O PAIN. NO S/S OF ACUTE DISTRESS NOTED. ABSCESS TO SUPRAPUBIC/GROIN AREA. VENOUS STASIS ULCERS TO BLE, DRESSING TO RIGHT LLE. IV TO LEFT FOREARM, NS INFUSING @ 100ML/HR. SITE PATENT WITHOUT REDNESS OR SWELLING. ON TELEMETRY 54 SB. DENIES ANY NEEDS AT THIS TIME. CALL LIGHT IN REACH. WILL CONTINUE TO MONITOR.
[2019-04-11 08:01] VITALS: BP 94/52
--- NOTE | 2019-04-11 09:59 | NUR ---
REMOVED DRESSING TO RIGHT LOWER LEG. CLEANED ULCERS WITH WOUND CLEANSER. APPLIED XEROFORM, COVERED WITH 4X4 GAUZE AND WRAPPED WITH KERLEX.
--- NOTE | 2019-04-11 10:03 | MORECARE ---
CASE MANAGEMENT DISCHARGE SUMMARY PATIENT: FRANCINE CERVANTES UNIT: [id number] ADM DATE: 04/08/19 AGE: 53 : 61 SEX: M ROOM/BED: D.2237 AUTHOR: MARIAMA COURTNEY PHYSICIAN: REFERRING PHYSICIAN: CITLALLI BURRIS MD DATE OF SERVICE: 04/11/19 Discharge Plan Patient Name: FRANCINE CERVANTES [facility] [facility] 1965 Planned Disposition: Home Anticipated Discharge Date: Discharge Date: Expected LOS: Initial Reviewer: [email or web address] Initial Review Date: 04/11/2019 Generated: 04/11/19 11:02 am Patient Name: FRANCINE CERVANTES Page [id number] at 1003 All edits/amendments must be made on the electronic document DICTATION DATE: 04/11/19 1002 PERSONAL COACH: JACKELIN 04/11/19 1002 RPT#: [id number] DC DATE: STATUS: ADM IN [facility] [address] [place] [address] END OF REPORT
--- NOTE | 2019-04-11 10:11 | MORECARE ---
CASE MANAGEMENT DISCHARGE SUMMARY PATIENT: FRANCINE CERVANTES UNIT: [id number] ADM DATE: 04/08/19 AGE: 53 : 61 SEX: M ROOM/BED: D.2237 AUTHOR: SHERWIN,DOC PHYSICIAN: REFERRING PHYSICIAN: CITLALLI BURRIS MD DATE OF SERVICE: 04/11/19 Discharge Plan Patient Name: FRANCINE CERVANTES Facility: [facility]:[place] : 1965 Planned Disposition: Home Anticipated Discharge Date: Discharge Date: Expected LOS: Initial Reviewer: [email or web address] Initial Review Date: 04/11/2019 Generated: 04/11/19 11:10 am Comments DCP- Discharge Planning Updated by [email or web address]: Dia Agosto on 04/11/19 9:[address] Patient Name: FRANCINE CERVANTES Admission Status: ER Accout number: [id number] Admission Date: 04-08-2019 : 1965 Admission Diagnosis: Attending: CITLALLI BURRIS Current LOS: 3 Anticipated DC Date: Planned Disposition: Home Primary Insurance: [employer] Discharge Planning Comments: CM met with patient to complete initial dc planning assessment. CM educated patient on the CM role and verbal consent given by patient to complete assessment. Patient lives at home with his . At discharge patient plans to return home and feels this is a safe discharge. CM discussed availability of home health, rehab, SNF and additional DME needs. Patient denies needs at this time. States his is capable of helping him with his wound care. 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 will transport him home on discharge. CM will continue to follow and assist with discharge planning/needs. Router Tender: Dia Agosto DCPIA - Discharge Planning Initial Assessment Updated by [id number]: Dia Agosto on 04/11/19 10:03 am * Is the patient Alert and Oriented? Yes * PCP Dr. Ralph * Pharmacy [facility] * Preadmission Environment Home with Family * ADLs Partial Dependent * Partial ADLs (Assistance needed) Bathing Medication Management * Equipment BIPAP Cane Glucometer Hospital Bed Other Shower Chair * Other Equipment Automatic BP cuff Medical bag with diabetic supplies, epi pen and bleeding supplies * List name and contact numbers for known caregivers / representatives who currently or will assist patient after discharge: [facility] - [phone] * Verbal permission to speak to the caregivers and representatives has been obtained from the patient. Yes * Community resources currently utilized None * Additional services required to return to the preadmission environment? No * Can the patient safely return to the preadmission environment? Yes * Has this patient been hospitalized within the prior 30 days at any hospital? No Last DP export: 04/11/19 9:03 am Patient Name: FRANCINE CERVANTES Page [phone] at 1011 All edits/amendments must be made on the electronic document DICTATION DATE: 04/11/19 1010 SPINNERET CLEANER: JACKELIN 04/11/19 1010 RPT#: [id number] DC DATE: STATUS: ADM IN [facility] [address] [place] [address] END OF REPORT
--- NOTE | 2019-04-11 12:43 | NUR ---
PT IS WITHOUT DISTRESS.ISOLATION MAINTAINED.CALL LIGHT IN REACH
[2019-04-11 14:03] VITALS: BP 145/77
[2019-04-11 15:53] VITALS: BP 151/81
--- NOTE | 2019-04-11 18:35 | NUR ---
SITTING UP IN BED. DENIES ANY NEEDS AT THIS TIME. CALL LIGHT IN REACH. WILL CONTINUE TO MONITOR.
[2019-04-11 20:52] VITALS: BP 170/86
[2019-04-12 01:30] VITALS: BP 131/74
--- NOTE | 2019-04-12 03:37 | NUR ---
REC'D WALKING ROUNDS CHGE. OF SHIFTIN BED ON COMPUTER.RIGHT LOWER LEG DRSG. DRY AND INTACT.LEFT LOWER EXT. CRUSTY WITH DARK ROUND SCABS PRESENT NO WEEPING OBSERVED AT PRESENT TIME.1+ EDEMA FEET BILAT PEDAL PULSE PRESENT.WILL CONTINUE TO MONITOR FOR ANY CHGES AND FOLLOW CURRENT PLAN OF CARE.CONTACT ISOLATION REMAINS IN PROGRESS.
[2019-04-12 05:14] VITALS: BP 115/70
[2019-04-12 06:49] LABS: BASOPHILS 0.4 % (0-2); EOSINOPHILS 3.7 % (0-7); HEMATOCRIT 38.1 % (42.0-54.0); HEMOGLOBIN 12.7 g/dL (13.5-17.5); IMMATURE GRANULOCYTES 5.1 % (0-5); LYMPHOCYTES 33.3 % (15-50); MCHC 33.3 g/dL (31.0-37.0); MEAN PLATELET VOLUME 12.4 fL (7.4-10.4); MONOCYTES 10.2 % (2-11); NEUTROPHILS 47.3 % (40-80); PLATELET COUNT 181 10x3/uL (130-400); RBC 4.38 10x6/uL (4.20-6.10); RDW 14.2 % (11.5-14.5); WBC 4.9 10x3/uL (4.8-10.8)
[2019-04-12 07:01] LABS: ALBUMIN 2.5 g/dL (3.4-5.0); ALKALINE PHOSPHATASE 67 U/L (46-116); ALT (SGPT) 27 U/L (10-68); CALC OSMOLALITY 287 mosm/kg (275-300); CARBON DIOXIDE 22.2 mmol/L (21.0-32.0); CHLORIDE - SERUM 107 mmol/L (98-107); CREATININE - SERUM 0.9 mg/dL (0.6-1.3); GLUCOSE 295 mg/dL (74-106); PROTEIN - SERUM 5.3 g/dL (6.4-8.2); SODIUM 137 mmol/L (136-145); UREA NITROGEN 21 mg/dL (7-18); eGFR NON AFRICAN AMERICAN > 90 mL/min (90-120)
--- NOTE | 2019-04-12 07:34 | NUR ---
Resting in bed no s/s of distress. call light in reach. c-pap in place. able to voice needs and wants to staff.
[2019-04-12 08:57] VITALS: BP 118/51
--- NOTE | 2019-04-12 09:49 | NUR ---
PT ALERT X 4. BREATH SOUNDS CLEAR BILAT. IV TO LEFT FOREARM, PATENT, DRESSING CDI. HARDENED RED AREA TO SUPRAPUBIC AREA. SCABS/SORES TO LEFT LOWER LEG. SORES WITH DRAINAGE TO RIGHT LOWER LEG. PT REPORTING PAIN OF 6/10, WILL MONITOR. BED LOW, CALL LIGHT IN REACH. NO OTHER NEEDS AT THIS TIME.
[2019-04-12] MEDS ORDERED: FLORAJEN3 CAPS460 MG PO (10:54)
[2019-04-12] MEDS ORDERED: DIFLUCAN150 MG PO (10:55)
[2019-04-12] MEDS ORDERED: NYSTATIN1 PWD TOPICAL (10:55)
[2019-04-12] MEDS ORDERED: LEVOFLOXACIN500 MG PO (10:56)
[2019-04-12 11:54] VITALS: BP 158/88
--- NOTE | 2019-04-12 13:16 | MORECARE ---
CASE MANAGEMENT DISCHARGE SUMMARY PATIENT: FRANCINE CERVANTES UNIT: [id number] ADM DATE: 04/08/19 AGE: 53 : 61 SEX: M ROOM/BED: D.2237 AUTHOR: MARIAMA COURTNEY PHYSICIAN: REFERRING PHYSICIAN: CITLALLI BURRIS MD DATE OF SERVICE: 04/12/19 Discharge Plan Patient Name: FRANCINE CERVANTES Facility: [facility]:[place] : 1965 Planned Disposition: Home Anticipated Discharge Date: Discharge Date: Expected LOS: Initial Reviewer: [email or web address] Initial Review Date: 04/11/2019 Generated: 04/12/19 2:16 pm Comments DCP- Discharge Planning Updated by [email or web address]: Dia Agosto on 04/12/19 12:[address] Patient Name: FRANCINE CERVANTES Encounter No: [id number] : 1965 Primary Insurance: NOVASYSMCR Anticipated DC Date: Planned Disposition: Home External Planned Provider: : DCP follow-up note: Patient and family in agreement with discharge plan. No changes to plan. Case management will follow and assist as needed. Dia Agosto DCP- Discharge Planning Updated by [email or web address]: Dia Agosto on 04/11/19 9:[address] Patient Name: FRANCINE CERVANTES Admission Status: ER Accout number: [id number] Admission Date: 04-08-2019 : 1965 Admission Diagnosis: Attending: CITLALLI BURRIS Current LOS: 3 Anticipated DC Date: Planned Disposition: Home Primary Insurance: NOVASYSMCR Discharge Planning Comments: CM met with patient to complete initial dc planning assessment. CM educated patient on the CM role and verbal consent given by patient to complete assessment. Patient lives at home with his . At discharge patient plans to return home and feels this is a safe discharge. CM discussed availability of home health, rehab, SNF and additional DME needs. Patient denies needs at this time. States his is capable of helping him with his wound care. 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 will transport him home on discharge. CM will continue to follow and assist with discharge planning/needs. Pathology Laboratory Aides Teacher: Dia Agosto DCPIA - Discharge Planning Initial Assessment Updated by [email or web address]: Dia Agosto on 04/11/19 10:03 am * Is the patient Alert and Oriented? Yes * PCP Dr. Ralph * Pharmacy [facility] on [address] * Preadmission Environment Home with Family * ADLs Partial Dependent * Partial ADLs (Assistance needed) Bathing Medication Management * Equipment BIPAP Cane Glucometer Hospital Bed Other Shower Chair * Other Equipment Automatic BP cuff Medical bag with diabetic supplies, epi pen and bleeding supplies * List name and contact numbers for known caregivers / representatives who currently or will assist patient after discharge: [facility] - [phone] * Verbal permission to speak to the caregivers and representatives has been obtained from the patient. Yes * Community resources currently utilized None * Additional services required to return to the preadmission environment? No * Can the patient safely return to the preadmission environment? Yes * Has this patient been hospitalized within the prior 30 days at any hospital? No Coverage Notice Reviewer: [email or web address] - Dia Agosto Notice Issued Date-Time: 04/12/2019 13:11 Notice Type: IM Discharge Notice Notice Delivered To: Patient Relationship to Patient: Self Web Marketing Intern Name: Delivery Method: HAND - Hand Delivered Mima Days: Prior Verbal Notification: Recipient Understood Notice: Yes Recipient Signature: Yes Med Rec Note Co-signed by Attending: Coverage Notice Comment: IMM explained, signed, given, copy placed in MR Last DP export: 04/11/19 9:11 am Patient Name: FRANCINE CERVANTES Page [phone] at 1316 All edits/amendments must be made on the electronic document DICTATION DATE: 04/12/19 1315 CONTRACT CONSULTANT: DM 04/12/19 1315 RPT#: [id number] DC DATE: STATUS: ADM IN [facility] [address] [place] [address] END OF REPORT
--- NOTE | 2019-04-12 15:38 | NUR ---
DISCHARGE PAPERWORK SIGNED, ALL QUESTIONS ANSWERED. IV TO LEFT FOREARM DC'D, TIP INTACT. ESCORTED OUT BY WHEELCHAIR.
--- NOTE | 2019-04-13 12:22 | MORECARE ---
CASE MANAGEMENT DISCHARGE SUMMARY PATIENT: FRANCINE CERVANTES UNIT: [id number] ADM DATE: 04/08/19 AGE: 53 : 61 SEX: M ROOM/BED: D.2237 AUTHOR: MARIAMA COURTNEY PHYSICIAN: REFERRING PHYSICIAN: CITLALLI BURRIS MD DATE OF SERVICE: 04/13/19 Discharge Plan Patient Name: FRANCINE CERVANTES Facility: [facility]:[place] : 1965 Planned Disposition: Home Anticipated Discharge Date: Discharge Date: 04/12/2019 Expected LOS: 0 Initial Reviewer: [email or web address] Initial Review Date: 04/11/2019 Generated: 04/13/19 1:21 pm Comments DCP- Discharge Planning Updated by [email or web address]: Dia Agosto on 04/12/19 12:[address] Patient Name: FRANCINE CERVANTES Encounter No: [id number] : 1965 Primary Insurance: NOVASYSMCR Anticipated DC Date: Planned Disposition: Home External Planned Provider: : DCP follow-up note: Patient and family in agreement with discharge plan. No changes to plan. Case management will follow and assist as needed. Dia Agosto DCP- Discharge Planning Updated by [id number]: Dia Agosto on 04/11/19 9:[address] Patient Name: FRANCINE CERVANTES Admission Status: ER Accout number: [id number] Admission Date: 04-08-2019 : 1965 Admission Diagnosis: Attending: CITLALLI BURRIS Current LOS: 3 Anticipated DC Date: Planned Disposition: Home Primary Insurance: NOVASYSMCR Discharge Planning Comments: CM met with patient to complete initial dc planning assessment. CM educated patient on the CM role and verbal consent given by patient to complete assessment. Patient lives at home with his . At discharge patient plans to return home and feels this is a safe discharge. CM discussed availability of home health, rehab, SNF and additional DME needs. Patient denies needs at this time. States his is capable of helping him with his wound care. 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 will transport him home on discharge. CM will continue to follow and assist with discharge planning/needs. District Court Administrator: Dia Agosto DCPIA - Discharge Planning Initial Assessment Updated by [email or web address]: Dia Agosto on 04/11/19 10:03 am * Is the patient Alert and Oriented? Yes * PCP Dr. Ralph * Pharmacy [facility] on [address] * Preadmission Environment Home with Family * ADLs Partial Dependent * Partial ADLs (Assistance needed) Bathing Medication Management * Equipment BIPAP Cane Glucometer Hospital Bed Other Shower Chair * Other Equipment Automatic BP cuff Medical bag with diabetic supplies, epi pen and bleeding supplies * List name and contact numbers for known caregivers / representatives who currently or will assist patient after discharge: [facility] - [phone] * Verbal permission to speak to the caregivers and representatives has been obtained from the patient. Yes * Community resources currently utilized None * Additional services required to return to the preadmission environment? No * Can the patient safely return to the preadmission environment? Yes * Has this patient been hospitalized within the prior 30 days at any hospital? No Coverage Notice Reviewer: [id number] - Dia Agosto Notice Issued Date-Time: 04/12/2019 13:11 Notice Type: IM Discharge Notice Notice Delivered To: Patient Relationship to Patient: Self Furniture Designer Name: Delivery Method: HAND - Hand Delivered Mima Days: Prior Verbal Notification: Recipient Understood Notice: Yes Recipient Signature: Yes Med Rec Note Co-signed by Attending: Coverage Notice Comment: IMM explained, signed, given, copy placed in MR Last DP export: 04/12/19 12:16 pm Patient Name: FRANCINE CERVANTES Page 11399 at 1222 All edits/amendments must be made on the electronic document DICTATION DATE: 04/13/19 1221 COMPUTER TECHNOLOGIST: JACKELIN 04/13/19 1221 RPT#: [id number] DC DATE:04/12/19 STATUS: DIS IN [facility] [address] [place] [address] END OF REPORT
== END 2019-04-12 15:40 | disposition home or self-care (01) | DRG 603 ==
LOC: D.ER 21:19 → D.MS 23:43
PROVIDERS: Family Medicine; ADMIT Emergency Medicine; ATTEND Emergency Medicine
DX: L03.314 Cellulitis of groin (principal); Z68.43 Body mass index [BMI] 50.0-59.9, adult; L03.115 Cellulitis of right lower limb; E66.01 Morbid (severe) obesity due to excess calories; I87.2 Venous insufficiency (chronic) (peripheral); E11.65 Type 2 diabetes mellitus with hyperglycemia; E11.40 Type 2 diabetes mellitus with diabetic neuropathy, unspecified; B95.1 Streptococcus, group B, as the cause of diseases classified elsewhere; B96.89 Other specified bacterial agents as the cause of diseases classified elsewhere; I45.4 Nonspecific intraventricular block; J44.9 Chronic obstructive pulmonary disease, unspecified; K21.9 Gastro-esophageal reflux disease without esophagitis; F90.9 Attention-deficit hyperactivity disorder, unspecified type; F32.9 Major depressive disorder, single episode, unspecified; K42.9 Umbilical hernia without obstruction or gangrene; Z87.891 Personal history of nicotine dependence

== ENCOUNTER 2019-05-21 23:42 | Inpatient (IN) | payer OTHER ==
[~2019-05-21] VITALS: Ht 175.3 cm; Wt 176.4 kg
[~2019-05-21 23:42] MED LIST changes: +BACLOFEN20 M1 PO; +BASAGLAR K100 UNIT/1 SC; +CYANOCOBAL1000 MCG/4 SC; +DIFLUCAN150 MG PO; +FLORAJEN3 CAPS460 MG PO; +LANTUS SOLOSTAR PEN SC; +LEVOFLOXACIN500 MG PO; +LYRICA150 MG PO; +MOBIC7.5 MG PO; +NYSTATIN1 PWD TOPICAL
[2019-05-22] VITALS (7 sets, daily range): BP systolic 104–138; BP diastolic 57–69; Ht 175.3 cm; Wt 176.4 kg
[2019-05-22 00:35] LABS: BASOPHILS 0.3 % (0-2); EOSINOPHILS 2.3 % (0-7); HEMATOCRIT 40.4 % (42.0-54.0); HEMOGLOBIN 13.3 g/dL (13.5-17.5); IMMATURE GRANULOCYTES 1.5 % (0-5); LYMPHOCYTES 24.7 % (15-50); MCH 28.7 pg (26.0-34.0); MCHC 32.9 g/dL (31.0-37.0); MCV 87.1 fL (80.0-100.0); MONOCYTES 8.7 % (2-11); NEUTROPHILS 62.5 % (40-80); PLATELET COUNT 183 10x3/uL (130-400); RBC 4.64 10x6/uL (4.20-6.10); RDW 14.1 % (11.5-14.5)
[2019-05-22 00:40] LABS: ANION GAP 12.1 mmol/L (8-16); CALCIUM 8.8 mg/dL (8.5-10.1); CARBON DIOXIDE 25.3 mmol/L (21.0-32.0); CREATININE - SERUM 1.5 mg/dL (0.6-1.3); POTASSIUM - SERUM 4.4 mmol/L (3.5-5.1)
[2019-05-22 00:45] LABS: ALBUMIN 3.4 g/dL (3.4-5.0); BILIRUBIN - TOTAL 0.37 mg/dL (0.2-1.3); MAGNESIUM - SERUM 1.7 mg/dL (1.8-2.4); PROTEIN - SERUM 6.8 g/dL (6.4-8.2)
--- NOTE | 2019-05-22 02:37 | NUR ---
MAG SULFATE 1G/100ML STARTED AT 0124 FINISHED 0224. SECOND BAG INFUSING TO FLOOR.
--- NOTE | 2019-05-22 03:10 | NUR ---
DRESSING APPLIED TO RLE: ADAPTIC, COVERED WITH ABD PAD, WRAPPED WITH ANIKET WRAP.
--- NOTE | 2019-05-22 03:25 | NUR ---
ADMISSION ASSESSMENT COMPLETE. CARE PLANS COMPLETE AND PRIORITIZED.
[2019-05-22] MEDS ORDERED: LASIX40 MG PO (03:35)
[2019-05-22] MEDS ORDERED: POTASSIUM CHLO20 MEQ PO (03:36)
--- NOTE | 2019-05-22 19:09 | NUR ---
DR REED AT BEDSIDE. OK FOR PT TO HAVE UNSWEET TEA PER DR REED. DIET MESSAGE PLACED.
--- NOTE | 2019-05-22 19:45 | NUR ---
PT IS RESTING IN BED WITH EYES OPEN. RESPIRATIONS ARE EVEN AND UNLABOREED. PT IS AAO X 4. BLE DISCOLORATION. PT REPORTS TINGLING AND STATES THAT IT IS IN RELATION TO NEUROPATHY. PT DENIES NUMBNESS TO BLE. BLE PEDAL PULSES PALP. PT REFUSES FALL PRECAUTIONS AT THIS TIME. PT DENIES PRESENCE OF PAIN/N/V. BED IS IN THE LOWEST POSITION. CALL LIGHT AND BEDSIDE TABLE ARE WITHIN REACH. SIDE RAILS X 2. PT DENIES FURTHER NEEDS. WILL CONT TO MONITOR.
[2019-05-23 01:26] VITALS: BP 113/63
[2019-05-23 05:27] LABS: BASOPHILS 0.4 % (0-2); EOSINOPHILS 3.6 % (0-7); HEMATOCRIT 36.5 % (42.0-54.0); HEMOGLOBIN 12.1 g/dL (13.5-17.5); IMMATURE GRANULOCYTES 1.9 % (0-5); LYMPHOCYTES 25.9 % (15-50); MCH 28.4 pg (26.0-34.0); MCHC 33.2 g/dL (31.0-37.0); MCV 85.7 fL (80.0-100.0); MEAN PLATELET VOLUME 12.5 fL (7.4-10.4); MONOCYTES 9.1 % (2-11); NEUTROPHILS 59.1 % (40-80); PLATELET COUNT 163 10x3/uL (130-400); RBC 4.26 10x6/uL (4.20-6.10); RDW 13.8 % (11.5-14.5); WBC 4.7 10x3/uL (4.8-10.8)
[2019-05-23 05:30] VITALS: BP 127/64
[2019-05-23 05:42] LABS: APTT 33.6 SECONDS (22.8-39.4); INR 1.11 (0.85-1.17); PROTIME 14.2 SECONDS (11.6-15.0)
[2019-05-23 05:46] LABS: ANION GAP 12.2 mmol/L (8-16); CALCIUM 8.7 mg/dL (8.5-10.1); CARBON DIOXIDE 24.7 mmol/L (21.0-32.0); MAGNESIUM - SERUM 1.9 mg/dL (1.8-2.4); PHOSPHOROUS 4.4 mg/dL (2.5-4.9); POTASSIUM - SERUM 3.9 mmol/L (3.5-5.1)
[2019-05-23 05:51] LABS: CREATININE - SERUM 1.1 mg/dL (0.6-1.3)
--- NOTE | 2019-05-23 07:25 | NUR ---
PT RESTING IN BED. RESP EVEN AND UNLABORED. REPORTS PAIN 4/10 AT THIS TIME AND REQUEST MUSCLE RELAXER WITH MORNING MEDICATIONS. IV TO LEFT FOREARM WITH NS @ 75ML/HR INFUSING VIA PUMP. SITE WITHOUT REDNESS OR EDEMA. STASIS ULCERS TO RIGHT LOWER EXTREMITY NOTED, WILL CONTACT WOUND NURSE REGARDING WOUND CONSULT THIS AM. DISCOLORATION NOTED TO BILAT LOWER EXTREMITIES. DENIES FURTHER NEEDS AT THIS TIME. CL WITHIN REACH. ENCOURAGED TO CALL WITH NEEDS. CONTINUE POC
[2019-05-23 09:28] VITALS: BP 142/58
--- NOTE | 2019-05-23 12:04 | NUR ---
PT HAS 3 SMALL WOUNDS LOCATED ON RIGHT UGALDE/CALF. ALL MEASURE 0.5CM X 0.5CM. THERE IS NO DRAINAGE OR ODOR NOTED. THE LOWER LEG (UGALDE/CALF) IS DISCOLORED (BROWN) AND IS HAIRLESS. PT STATES THE CURRENT TREATMENT IS SILVADENE CREAM COVERED WITH NONADHERENT GAUZE AND SECURED WITH KERLIX. THE WOUNDS ARE HEALING SO IT IS RECOMMEND TO CONTINUE WITH THE SAME. PT C/O HAVING A WOUND ON HIS RIGHT HIP. UPON ASSESSMENT IT APPEARS A SMALL SCRATCHED AREA 1CM X 0.5CM. RECOMMENDED CLEANSING AND COVERING WITH MEPILEX BORDER FOR PROTECTION.
[2019-05-23 12:45] VITALS: BP 146/56
[2019-05-23 17:17] VITALS: BP 134/89
--- NOTE | 2019-05-23 19:30 | NUR ---
PT SITTING UP IN BED WITHOUT DISTRESS, AOX4. IV LEFT FA INFUSING NS @ 75. DISCOLORATION TO BLE. SORES TO RIGHT LOWER EXT COVERED WITH DRESSING, CDI. REFUSES FALL PRECAUTIONS. STATES HAVING PAIN 11/12. REQUESTING TORADOL. WILL GIVE ORDERED. DENIES OTHER NEEDS. CL IN REACH, WILL CTM
--- NOTE | 2019-05-23 21:30 | NUR ---
HS MEDS GIVEN. FSBS 304, COVERAGE PER SS. LANTUS GIVEN. SEE MAR. HS SNACK GIVEN. REQUESTED AND GIVEN TEA WITH SPLENDA. TORADOL GIVEN FOR PAIN 01/12. DENIES OTHER NEEDS. CL IN REACH, WILL CTM
[2019-05-23 23:09] VITALS: BP 161/83
[2019-05-24 01:57] VITALS: BP 128/70
[2019-05-24 05:20] VITALS: BP 116/60
[2019-05-24 06:13] LABS: ANION GAP 10.1 mmol/L (8-16); CALCIUM 8.9 mg/dL (8.5-10.1); CARBON DIOXIDE 28.6 mmol/L (21.0-32.0); CREATININE - SERUM 1.1 mg/dL (0.6-1.3); MAGNESIUM - SERUM 1.8 mg/dL (1.8-2.4); POTASSIUM - SERUM 3.7 mmol/L (3.5-5.1)
--- NOTE | 2019-05-24 06:22 | NUR ---
FSBS 249, 12 UNITS GIVEN PER SS. STATES PAIN 11/12. GAVE TORADOL ORDERED. DENIES OTHER NEEDS. WILL CTM
[2019-05-24 06:51] LABS: BASOPHILS 0.5 % (0-2); EOSINOPHILS 2.8 % (0-7); HEMATOCRIT 43.4 % (42.0-54.0); HEMOGLOBIN 14.2 g/dL (13.5-17.5); IMMATURE GRANULOCYTES 2.3 % (0-5); LYMPHOCYTES 21.3 % (15-50); MCH 28.6 pg (26.0-34.0); MCHC 32.7 g/dL (31.0-37.0); MCV 87.5 fL (80.0-100.0); MEAN PLATELET VOLUME 12.9 fL (7.4-10.4); MONOCYTES 9.1 % (2-11); PLATELET COUNT 189 10x3/uL (130-400); RBC 4.96 10x6/uL (4.20-6.10); RDW 13.9 % (11.5-14.5); WBC 5.7 10x3/uL (4.8-10.8)
[2019-05-24 09:04] VITALS: BP 157/84
--- NOTE | 2019-05-24 09:15 | MORECARE ---
CASE MANAGEMENT DISCHARGE SUMMARY PATIENT: FRANCINE CERVANTES UNIT: [id number] ADM DATE: 05/22/19 AGE: 53 : 61 SEX: M ROOM/BED: D.2213 AUTHOR: MARIAMA COURTNEY PHYSICIAN: REFERRING PHYSICIAN: ALEAH TOTH MD DATE OF SERVICE: 05/24/19 Discharge Plan Patient Name: FRANCINE CERVANTES [facility] [facility] 1965 Planned Disposition: Home Anticipated Discharge Date: Discharge Date: Expected LOS: Initial Reviewer: [email or web address] Initial Review Date: 05/22/2019 Generated: 05/24/19 10:15 am DCPIA - Discharge Planning Initial Assessment Updated by [email or web address]: Awa Lazo on 05/24/19 9:14 am * Is the patient Alert and Oriented? Yes * How many steps to enter\exit or inside your home? * PCP [facility] * [facility] * Preadmission Environment Home with Family * ADLs Independent * Equipment BIPAP Cane * List name and contact numbers for known caregivers / representatives who currently or will assist patient after discharge: ELIDA CERVANTES () [phone] * Verbal permission to speak to the caregivers and representatives has been obtained from the patient. N/A * Community resources currently utilized None * Additional services required to return to the preadmission environment? No * Can the patient safely return to the preadmission environment? Yes * Has this patient been hospitalized within the prior 30 days at any hospital? No Patient Name: FRANCINE CERVANTES Page 16984 at 0915 All edits/amendments must be made on the electronic document DICTATION DATE: 05/24/19914 MANAGER RESEARCH: JACKELIN 05/24/19914 RPT#: [id number] DC DATE: STATUS: ADM IN [facility] [address] [place] [address] END OF REPORT
--- NOTE | 2019-05-24 09:22 | MORECARE ---
CASE MANAGEMENT DISCHARGE SUMMARY PATIENT: FRANCINE CERVANTES UNIT: [id number] ADM DATE: 05/22/19 AGE: 53 : 61 SEX: M ROOM/BED: D.2213 AUTHOR: SHERWINDOC PHYSICIAN: REFERRING PHYSICIAN: ALEAH TOTH MD DATE OF SERVICE: 05/24/19 Discharge Plan Patient Name: FRANCINE CERVANTES [facility]:[place] : 1965 Planned Disposition: Home Anticipated Discharge Date: Discharge Date: Expected LOS: Initial Reviewer: [email or web address] Initial Review Date: 05/22/2019 Generated: 05/24/19 10:22 am Comments DCP- Discharge Planning Updated by [email or web address]: Awa Lazo on 05/24/19 8:[address] Patient Name: FRANCINE CERVANTES Admission Status: ER Accout number: [id number] Admission Date: 05-22-2019 : 1965 Admission Diagnosis: Attending: ALEAH TOTH Current LOS: 2 Anticipated DC Date: Planned Disposition: Home Primary Insurance: [employer] Discharge Planning Comments: CM met with patient to complete initial dc planning assessment. CM educated patient on the CM role and verbal consent given by patient to complete assessment. Patient lives at home with his spouse where he is independent with his care. At discharge patient plans to return home and feels this is a safe discharge. 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 CM discussed availability of home health, rehab services, and medical equipment. He uses [facility] for his DME & [facility] for his BiPAP supplies. [facility] for OBrians, [facility], and [facility] for HH. If he needs HH when he is discharged he uses [facility]. He has a Bipap machine and a cane. IMM served and explained to patient . Patient denied known discharge needs at this time. CM will continue to follow and will assist as needed with dc plans/needs. Cloth Measurer: Awa Lazo DCPIA - Discharge Planning Initial Assessment Updated by [email or web address]: Awa Lazo on 05/24/19 9:14 am * Is the patient Alert and Oriented? Yes * How many steps to enter\exit or inside your home? * PCP FAR[facility] * Pharmacy [facility] * Preadmission Environment Home with Family * ADLs Independent * Equipment BIPAP Cane * List name and contact numbers for known caregivers / representatives who currently or will assist patient after discharge: ELIDA CERVANETS () [phone] * Verbal permission to speak to the caregivers and representatives has been obtained from the patient. N/A * Community resources currently utilized None * Additional services required to return to the preadmission environment? No * Can the patient safely return to the preadmission environment? Yes * Has this patient been hospitalized within the prior 30 days at any hospital? No Coverage Notice Reviewer: [email or web address] Pepe Lazo Notice Issued Date-Time: 05/24/2019 7:45 Notice Type: IM Discharge Notice Notice Delivered To: Patient Relationship to Patient: Extra Hand Name: Delivery Method: HAND - Hand Delivered Mima Days: Prior Verbal Notification: Recipient Understood Notice: Yes Recipient Signature: Yes Med Rec Note Co-signed by Attending: Coverage Notice Comment: Reviewer: [email or web address] Lazo Notice Issued Date-Time: 05/24/2019 7:45 Notice Type: Patient Choice Letter Notice Delivered To: Patient Relationship to Patient: Extra Hand Name: Delivery Method: HAND - Hand Delivered Mima Days: Prior Verbal Notification: Recipient Understood Notice: Yes Recipient Signature: Yes Med Rec Note Co-signed by Attending: Coverage Notice Comment: demarco CULLEN export: 05/24/19 8:15 a Patient Name: FRANCINE CERVANTES Page 65524 at 0922 All edits/amendments must be made on the electronic document DICTATION DATE: 05/24/19921 BEE KEEPER: JACKELIN 05/24/19921 RPT#: [id number] DC DATE: STATUS: ADM IN [facility] [address] [place] [address] END OF REPORT
--- NOTE | 2019-05-24 10:55 | NUR ---
RESTING IN BED, NO DISTRESS NOTED, IV INFUSING, DRESSING TO LEGS INTACT, WANTS SHOWER AND THEN DSG CHANGE
[2019-05-24 13:41] VITALS: BP 142/75
--- NOTE | 2019-05-24 14:00 | NUR ---
DRESSING CHANGED TO LEFT HIP AND R LOWER LEG, NO S/S OF INFECTION, JUNIOR WELL
[2019-05-24 17:51] VITALS: BP 124/74
--- NOTE | 2019-05-24 19:20 | NUR ---
PT SITTING UP IN BED WITHOUT DISTRESS, AOX4. IV LEFT FA INFUSING NS @ 75. DRESSING TO RIGHT LEG AND LEFT HIP CDI. DENIES NEEDS AT THIS TIME. CL IN REACH, WILL CTM
[2019-05-24 20:00] VITALS: BP 146/74
--- NOTE | 2019-05-24 21:30 | NUR ---
FSBS 249, COVERAGE PER SS. PT GIVEN HS SNACK. TORADOL GIVEN FOR PAIN 09/12. DENIES OTHER NEEDS. CL IN REACH, WILL CTM
[2019-05-25] VITALS: BP 140/62
[2019-05-25 04:00] VITALS: BP 154/70
[2019-05-25 04:54] LABS: BASOPHILS 0.6 % (0-2); EOSINOPHILS 3.8 % (0-7); HEMATOCRIT 38.4 % (42.0-54.0); HEMOGLOBIN 12.9 g/dL (13.5-17.5); IMMATURE GRANULOCYTES 2.3 % (0-5); LYMPHOCYTES 21.7 % (15-50); MCH 28.7 pg (26.0-34.0); MCHC 33.6 g/dL (31.0-37.0); MEAN PLATELET VOLUME 11.7 fL (7.4-10.4); MONOCYTES 9.4 % (2-11); NEUTROPHILS 62.2 % (40-80); PLATELET COUNT 163 10x3/uL (130-400); RBC 4.49 10x6/uL (4.20-6.10); RDW 13.7 % (11.5-14.5); WBC 5.3 10x3/uL (4.8-10.8)
[2019-05-25 05:03] LABS: MCV 85.5 fL (80.0-100.0)
[2019-05-25 05:22] LABS: ANION GAP 13.2 mmol/L (8-16); CALCIUM 8.2 mg/dL (8.5-10.1); CARBON DIOXIDE 25.9 mmol/L (21.0-32.0); CREATININE - SERUM 1.1 mg/dL (0.6-1.3); MAGNESIUM - SERUM 1.7 mg/dL (1.8-2.4); PHOSPHOROUS 4.5 mg/dL (2.5-4.9); POTASSIUM - SERUM 4.1 mmol/L (3.5-5.1)
--- NOTE | 2019-05-25 06:11 | NUR ---
FSBS 154, 8 UNITS GIVEN PER SS. DENIES OTHER NEEDS. WILL CTM
[2019-05-25 08:47] VITALS: BP 118/72
--- NOTE | 2019-05-25 10:23 | NUR ---
ASSESSMENT PER FLOW SHEET. PT UP TO SHOWER. MONITOR FOR NEEDS
--- NOTE | 2019-05-25 11:01 | NUR ---
NUTRITION F/U PT TOLERATING DIABETIC DIET, GOOD INTAKE RECENT MEALS. NO COMPLAINTS AT THIS TIME. RD FOLLOWING
[2019-05-25 11:47] VITALS: BP 141/70
--- NOTE | 2019-05-25 19:00 | NUR ---
A&O X 4, AMBULATING AD JACOBO. DENIES PAIN CUREENTLY. DRESSING TO RIGHT LOWER LEG C/D/I. DENIES NEEDS, WILL CONTINUE TO MONITOR.
[2019-05-25 20:00] VITALS: BP 98/67
[2019-05-26] VITALS: BP 147/80
[2019-05-26 04:32] LABS: BASOPHILS 0.5 % (0-2); HEMATOCRIT 43.1 % (42.0-54.0); HEMOGLOBIN 14.2 g/dL (13.5-17.5); IMMATURE GRANULOCYTES 3.8 % (0-5); LYMPHOCYTES 20.7 % (15-50); MCH 28.7 pg (26.0-34.0); MCHC 32.9 g/dL (31.0-37.0); MCV 87.1 fL (80.0-100.0); MEAN PLATELET VOLUME 12.2 fL (7.4-10.4); MONOCYTES 10.2 % (2-11); NEUTROPHILS 61.8 % (40-80); PLATELET COUNT 167 10x3/uL (130-400); RBC 4.95 10x6/uL (4.20-6.10); RDW 13.8 % (11.5-14.5); WBC 5.6 10x3/uL (4.8-10.8)
[2019-05-26 04:36] LABS: ANION GAP 8.9 mmol/L (8-16); CALCIUM 8.5 mg/dL (8.5-10.1); CARBON DIOXIDE 29.4 mmol/L (21.0-32.0); MAGNESIUM - SERUM 1.8 mg/dL (1.8-2.4); PHOSPHOROUS 4.3 mg/dL (2.5-4.9); POTASSIUM - SERUM 4.3 mmol/L (3.5-5.1)
[2019-05-26 04:37] LABS: CREATININE - SERUM 1.4 mg/dL (0.6-1.3)
[2019-05-26] MEDS ORDERED: CLEOCIN HCL300 MG PO (09:42)
[2019-05-26 09:48] VITALS: BP 166/77
--- NOTE | 2019-05-26 11:58 | MORECARE ---
CASE MANAGEMENT DISCHARGE SUMMARY PATIENT: FRANCINE CERVANTES UNIT: [id number] ADM DATE: 05/22/19 AGE: 53 : 61 SEX: M ROOM/BED: D.2213 AUTHOR: SHERWINDOC PHYSICIAN: REFERRING PHYSICIAN: ALEAH TOTH MD DATE OF SERVICE: 05/26/19 Discharge Plan Patient Name: FRANCINE CERVANTES Facility: [facility]:[place] : 1965 Planned Disposition: Home Anticipated Discharge Date: Discharge Date: Expected LOS: Initial Reviewer: [email or web address] Initial Review Date: 05/22/2019 Generated: 05/26/19 12:58 pm Comments DCP- Discharge Planning Updated by [email or web address]: Awa Lazo on 05/26/19 10:[address] PATIENT DISCHARGING HOME TODAY, HE DID NOT WANT HOME HEALTH. IMM SERVED AND EXPLAINED AGAIN. HE DENIES ANY OTHER NEEDS FROM A CM STANDPOINT DCP- Discharge Planning Updated by [email or web address]: Awa Lazo on 05/24/19 8:[address] Patient Name: FRANCINE CERVANTES Admission Status: ER Accout number: [id number] Admission Date: 05-22-2019 : 1965 Admission Diagnosis: Attending: ALEAH TOTH Current LOS: 2 Anticipated DC Date: Planned Disposition: Home [facility] Discharge Planning Comments: CM met with patient to complete initial dc planning assessment. CM educated patient on the CM role and verbal consent given by patient to complete assessment. Patient lives at home with his spouse where he is independent with his care. At discharge patient plans to return home and feels this is a safe discharge. 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 CM discussed availability of home health, rehab services, and medical equipment. He uses [facility] for his DME & [facility] for his BiPAP supplies. [facility] for [facility]rians, [facility], and [facility] for HH. If he needs HH when he is discharged he uses [facility]. He has a Bipap machine and a cane. IMM served and explained to patient . Patient denied known discharge needs at this time. CM will continue to follow and will assist as needed with dc plans/needs. Assistant Food Service Manager: Awa Lazo DCPIA - Discharge Planning Initial Assessment Updated by [id number]: Awa Lazo on 05/24/19 9:14 am * Is the patient Alert and Oriented? Yes * How many steps to enter\exit or inside your home? * [facility]CP [facility] * Pharmacy [facility] * Preadmission Environment Home with Family * ADLs Independent * Equipment BIPAP Cane * List name and contact numbers for known caregivers / representatives who currently or will assist patient after discharge: ELIDA CERVANTES () [phone] * Verbal permission to speak to the caregivers and representatives has been obtained from the patient. N/A * Community resources currently utilized None * Additional services required to return to the preadmission environment? No * Can the patient safely return to the preadmission environment? Yes * Has this patient been hospitalized within the prior 30 days at any hospital? No Coverage Notice Reviewer: [id number] Pepe Lazo Notice Issued Date-Time: 05/24/2019 7:45 Notice Type: IM Discharge Notice Notice Delivered To: Patient Relationship to Patient: Clothes Ironer Name: Delivery Method: HAND - Hand Delivered Mima Days: Prior Verbal Notification: Recipient Understood Notice: Yes Recipient Signature: Yes Med Rec Note Co-signed by Attending: Coverage Notice Comment: Reviewer: [email or web address] Pepe Lazo Notice Issued Date-Time: 05/24/2019 7:45 Notice Type: Patient Choice Letter Notice Delivered To: Patient Relationship to Patient: Clothes Ironer Name: Delivery Method: HAND - Hand Delivered Mima Days: Prior Verbal Notification: Recipient Understood Notice: Yes Recipient Signature: Yes Med Rec Note Co-signed by Attending: Coverage Notice Comment: demarco Kaiser DP export: 05/24/19 8:22 a Patient Name: FRANCINE CERVANTES Page 62901 at 1158 All edits/amendments must be made on the electronic document DICTATION DATE: 05/26/19 1158 SENIOR ANALYTICAL CHEMIST: JACKELIN 05/26/19 1158 RPT#: [id number] DC DATE: STATUS: ADM IN [facility] [address] [place] [address] END OF REPORT
[2019-05-26 13:40] VITALS: BP 141/75
--- NOTE | 2019-05-26 14:12 | MORECARE ---
CASE MANAGEMENT DISCHARGE SUMMARY PATIENT: FRANCINE CERVANTES UNIT: [id number] ADM DATE: 05/22/19 AGE: 53 : 61 SEX: M ROOM/BED: D.2213 AUTHOR: SHERWINDOC PHYSICIAN: REFERRING PHYSICIAN: ALEAH TOTH MD DATE OF SERVICE: 05/26/19 Discharge Plan Patient Name: FRANCINE CERVANTES Facility: [facility]:[place] : 1965 Planned Disposition: Home Anticipated Discharge Date: Discharge Date: Expected LOS: Initial Reviewer: [id number] Initial Review Date: 05/22/2019 Generated: 05/26/19 3:12 pm Comments DCP- Discharge Planning Updated by [email or web address]: Awa Lazo on 05/26/19 10:[address] PATIENT DISCHARGING HOME TODAY, HE DID NOT WANT HOME HEALTH. IMM SERVED AND EXPLAINED AGAIN. HE DENIES ANY OTHER NEEDS FROM A CM STANDPOINT DCP- Discharge Planning Updated by [email or web address]: Awa Lazo on 05/24/19 8:[address] Patient Name: FRANCINE CERVANTES Admission Status: ER Accout number: [id number] Admission Date: 05-22-2019 : 1965 Admission Diagnosis: Attending: ALEAH TOTH Current LOS: 2 Anticipated DC Date: Planned Disposition: Home [facility] Discharge Planning Comments: CM met with patient to complete initial dc planning assessment. CM educated patient on the CM role and verbal consent given by patient to complete assessment. Patient lives at home with his spouse where he is independent with his care. At discharge patient plans to return home and feels this is a safe discharge. 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 CM discussed availability of home health, rehab services, and medical equipment. He uses [facility] for his DME & [facility] for his BiPAP supplies. [facility] for [facility], [facility], and [facility] for HH. If he needs HH when he is discharged he uses [facility]. He has a Bipap machine and a cane. IMM served and explained to patient . Patient denied known discharge needs at this time. CM will continue to follow and will assist as needed with dc plans/needs. Money Position Officer: Awa Lazo DCPIA - Discharge Planning Initial Assessment Updated by [email or web address]: Awa Lazo on 05/24/19 9:14 am * Is the patient Alert and Oriented? Yes * How many steps to enter\exit or inside your home? * PCP [facility] * Pharmacy [facility] * Preadmission Environment Home with Family * ADLs Independent * Equipment BIPAP Cane * List name and contact numbers for known caregivers / representatives who currently or will assist patient after discharge: ELIDA CERVANTES () [phone] * Verbal permission to speak to the caregivers and representatives has been obtained from the patient. N/A * Community resources currently utilized None * Additional services required to return to the preadmission environment? No * Can the patient safely return to the preadmission environment? Yes * Has this patient been hospitalized within the prior 30 days at any hospital? No External Providers [facility] Next Contact Date: Service Request Date: Service Type: Resolution: Reviewer: Comments: Coverage Notice Reviewer: [id number] Pepe Lazo Notice Issued Date-Time: 05/24/2019 7:45 Notice Type: IM Discharge Notice Notice Delivered To: Patient Relationship to Patient: Pattern Hand Name: Delivery Method: HAND - Hand Delivered Mima Days: Prior Verbal Notification: Recipient Understood Notice: Yes Recipient Signature: Yes Med Rec Note Co-signed by Attending: Coverage Notice Comment: Reviewer: [id number] Lazo Notice Issued Date-Time: 05/24/2019 7:45 Notice Type: Patient Choice Letter Notice Delivered To: Patient Relationship to Patient: Pattern Hand Name: Delivery Method: HAND - Hand Delivered Mima Days: Prior Verbal Notification: Recipient Understood Notice: Yes Recipient Signature: Yes Med Rec Note Co-signed by Attending: Coverage Notice Comment: demarco Huff Last DP export: 05/26/19 10:58 a Patient Name: FRANCINE CERVANTES Page [phone] at 1412 All edits/amendments must be made on the electronic document DICTATION DATE: 05/26/19 1412 EQUIPMENT MAINTENANCE SUPERINTENDENT: JACKELIN 05/26/19 1412 RPT#: [id number] PA DATE: STATUS: ADM IN [place] [address] [facility] [place] [address] END OF REPORT
--- NOTE | 2019-05-26 14:21 | MORECARE ---
CASE MANAGEMENT DISCHARGE SUMMARY PATIENT: FRANCINE CERVANTES UNIT: [id number] ADM DATE: 05/22/19 AGE: 53 : 61 SEX: M ROOM/BED: D.2213 AUTHOR: SHERWINDOC PHYSICIAN: REFERRING PHYSICIAN: ALEAH TOTH MD DATE OF SERVICE: 05/26/19 Discharge Plan Patient Name: FRANCINE CERVANTES Facility: [facility]:[place] : 1965 Planned Disposition: Home Anticipated Discharge Date: Discharge Date: Expected LOS: Initial Reviewer: [email or web address] Initial Review Date: 05/22/2019 Generated: 05/26/19 3:20 pm Comments DCP- Discharge Planning Updated by [email or web address]: Awa Lazo on 05/26/19 1:[address] PATIENT CALLED AND REQUESTED A HURRYCANE ORDER TO BE SENT TO [facility] SENT ORDER TO [place] AND THE PATIENT WILL GO BY THERE AFTER HE IS DISCHARGED DCP- Discharge Planning Updated by [email or web address]: Awa Lazo on 05/26/19 10:[address] PATIENT DISCHARGING HOME TODAY, HE DID NOT WANT HOME HEALTH. IMM SERVED AND EXPLAINED AGAIN. HE DENIES ANY OTHER NEEDS FROM A CM STANDPOINT DCP- Discharge Planning Updated by [email or web address]: Awa Lazo on 05/24/19 8:[address] Patient Name: FRANCINE CERVANTES Admission Status: ER Accout number: [id number] Admission Date: 05-22-2019 : 1965 Admission Diagnosis: Attending: ALEAH TOTH Current LOS: 2 Anticipated DC Date: Planned Disposition: Home [facility] Discharge Planning Comments: CM met with patient to complete initial dc planning assessment. CM educated patient on the CM role and verbal consent given by patient to complete assessment. Patient lives at home with his spouse where he is independent with his care. At discharge patient plans to return home and feels this is a safe discharge. 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 CM discussed availability of home health, rehab services, and medical equipment. He uses [facility] for his DME & [facility] for his BiPAP supplies. [facility] for [facility], [facility], and [facility] for HH. If he needs HH when he is discharged he uses [facility]. He has a Bipap machine and a cane. IMM served and explained to patient . Patient denied known discharge needs at this time. CM will continue to follow and will assist as needed with dc plans/needs. Photoengraving Retoucher: Awa Lazo DCPIA - Discharge Planning Initial Assessment Updated by [email or web address]: Awa Lazo on 05/24/19 9:14 am * Is the patient Alert and Oriented? Yes * How many steps to enter\exit or inside your home? * [facility]CP [facility] * Pharmacy [facility] [address] * Preadmission Environment Home with Family * ADLs Independent * Equipment BIPAP Cane * List name and contact numbers for known caregivers / representatives who currently or will assist patient after discharge: ELIDA CERVANTES () [phone] * Verbal permission to speak to the caregivers and representatives has been obtained from the patient. N/A * Community resources currently utilized None * Additional services required to return to the preadmission environment? No * Can the patient safely return to the preadmission environment? Yes * Has this patient been hospitalized within the prior 30 days at any hospital? No Coverage Notice Reviewer: [id number] Pepe Lazo Notice Issued Date-Time: 05/24/2019 7:45 Notice Type: IM Discharge Notice Notice Delivered To: Patient Relationship to Patient: Crystal Calibrator Name: Delivery Method: HAND - Hand Delivered Mima Days: Prior Verbal Notification: Recipient Understood Notice: Yes Recipient Signature: Yes Med Rec Note Co-signed by Attending: Coverage Notice Comment: Reviewer: [id number] Pepe Lazo Notice Issued Date-Time: 05/24/2019 7:45 Notice Type: Patient Choice Letter Notice Delivered To: Patient Relationship to Patient: Crystal Calibrator Name: Delivery Method: HAND - Hand Delivered Mima Days: Prior Verbal Notification: Recipient Understood Notice: Yes Recipient Signature: Yes Med Rec Note Co-signed by Attending: Coverage Notice Comment: demarco Huff Last DP export: 05/26/19 1:12 p Patient Name: FRANCINE CERVANTES Page [phone] at 1421 All edits/amendments must be made on the electronic document DICTATION DATE: 05/26/19 1420 AUTO RADIO MECHANIC: JACKELIN 05/26/19 1420 RPT#: [id number] DC DATE: STATUS: ADM IN [facility] [address] [place] [address] END OF REPORT
--- NOTE | 2019-05-26 17:00 | NUR ---
PATIENT RECIEVED DC INSTRUCTIONS. VERBALIZED UNDERSTANDING. NO QUESTIONS AT THIS TIME. IV REMOVED EARLIER WITH CATH TIP INTACT. ALSO CHANGED DRESSING TO RLE WITH SILVADENE ORDERED. FAMILY AT BEDSIDE. CALL LIGHT WITHIN REACH.
--- NOTE | 2019-05-26 17:10 | NUR ---
PATIENT ESCORTED OUT OF HOSPITAL VIA WC WITH PERSONAL BELONGINGS TO PRIVATE VEHICLE BY NURSE.
--- NOTE | 2019-05-27 09:16 | MORECARE ---
CASE MANAGEMENT DISCHARGE SUMMARY PATIENT: FRANCINE CERVANTES UNIT: [id number] ADM DATE: 05/22/19 AGE: 53 : 61 SEX: M ROOM/BED: D.2213 AUTHOR: SHERWINDOC PHYSICIAN: REFERRING PHYSICIAN: ALEAH TOTH MD DATE OF SERVICE: 05/27/19 Discharge Plan Patient Name: FRANCINE CERVANTES Facility: [facility]:[place] : 1965 Planned Disposition: Home Anticipated Discharge Date: Discharge Date: 05/26/2019 Expected LOS: Initial Reviewer: [email or web address] Initial Review Date: 05/22/2019 Generated: 05/27/19 10:15 am Comments DCP- Discharge Planning Updated by [email or web address]: Awa Lazo on 05/26/19 1:[address] PATIENT CALLED AND REQUESTED A HURRYCANE ORDER TO BE SENT TO [facility] SENT ORDER TO [place] AND THE PATIENT WILL GO BY THERE AFTER HE IS DISCHARGED DCP- Discharge Planning Updated by [email or web address]: Awa Lazo on 05/26/19 10:[address] PATIENT DISCHARGING HOME TODAY, HE DID NOT WANT HOME HEALTH. IMM SERVED AND EXPLAINED AGAIN. HE DENIES ANY OTHER NEEDS FROM A CM STANDPOINT DCP- Discharge Planning Updated by [email or web address]: Awa Lazo on 05/24/19 8:[address] Patient Name: FRANCINE CERVANTES Admission Status: ER Accout number: [id number] Admission Date: 05-22-2019 : 1965 Admission Diagnosis: Attending: ALEAH TOTH Current LOS: 2 Anticipated DC Date: Planned Disposition: Home Primary Insurance: [facility] Discharge Planning Comments: CM met with patient to complete initial dc planning assessment. CM educated patient on the CM role and verbal consent given by patient to complete assessment. Patient lives at home with his spouse where he is independent with his care. At discharge patient plans to return home and feels this is a safe discharge. 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 CM discussed availability of home health, rehab services, and medical equipment. He uses [facility] for his DME & [facility] for his BiPAP supplies. [facility] for [facility], [facility], and [facility] for HH. If he needs HH when he is discharged he uses [facility]. He has a Bipap machine and a cane. [facility] served and explained to patient . Patient denied known discharge needs at this time. CM will continue to follow and will assist as needed with dc plans/needs. Pickup Driver: Awa Lazo DCPIA - Discharge Planning Initial Assessment Updated by [email or web address]: Awa Lazo on 05/24/19 9:14 am * Is the patient Alert and Oriented? Yes * How many steps to enter\exit or inside your home? * PCP [facility] * Pharmacy [facility] ON [address] * Preadmission Environment Home with Family * ADLs Independent * Equipment BIPAP Cane * List name and contact numbers for known caregivers / representatives who currently or will assist patient after discharge: ELIDA CERVANTES () [phone] * Verbal permission to speak to the caregivers and representatives has been obtained from the patient. N/A * Community resources currently utilized None * Additional services required to return to the preadmission environment? No * Can the patient safely return to the preadmission environment? Yes * Has this patient been hospitalized within the prior 30 days at any hospital? No Coverage Notice Reviewer: [id number] Pepe Lazo Notice Issued Date-Time: 05/24/2019 7:45 Notice Type: IM Discharge Notice Notice Delivered To: Patient Relationship to Patient: Integrated Logistics Programs Director Name: Delivery Method: HAND - Hand Delivered Mima Days: Prior Verbal Notification: Recipient Understood Notice: Yes Recipient Signature: Yes Med Rec Note Co-signed by Attending: Coverage Notice Comment: Reviewer: [id number] Pepe Lazo Notice Issued Date-Time: 05/24/2019 7:45 Notice Type: Patient Choice Letter Notice Delivered To: Patient Relationship to Patient: Integrated Logistics Programs Director Name: Delivery Method: HAND - Hand Delivered Mima Days: Prior Verbal Notification: Recipient Understood Notice: Yes Recipient Signature: Yes Med Rec Note Co-signed by Attending: Coverage Notice Comment: demarco Huff Last DP export: 05/26/19 1:21 p Patient Name: FRANCINE CERVANTES Page 47600 at 0916 All edits/amendments must be made on the electronic document DICTATION DATE: 05/27/19 0915 MECHANIC WELDER TRUCK DRIVER: JACKELIN 05/27/19914 RPT#: [id number] DC DATE:05/26/19 STATUS: DIS IN [facility] [address] [place] [address] END OF REPORT
== END 2019-05-26 17:27 | disposition home or self-care (01) | DRG 638 ==
LOC: D.ER 23:42 → D.MS 05-22 01:37
PROVIDERS: Emergency Medicine; Family Medicine; ADMIT Internal Medicine Nephrology; ATTEND Internal Medicine Nephrology
DX: E11.628 Type 2 diabetes mellitus with other skin complications (principal); L03.115 Cellulitis of right lower limb; Z68.43 Body mass index [BMI] 50.0-59.9, adult; N17.9 Acute kidney failure, unspecified; I10 Essential (primary) hypertension; I25.10 Atherosclerotic heart disease of native coronary artery without angina pectoris; E11.40 Type 2 diabetes mellitus with diabetic neuropathy, unspecified; E11.65 Type 2 diabetes mellitus with hyperglycemia; E66.01 Morbid (severe) obesity due to excess calories; G47.33 Obstructive sleep apnea (adult) (pediatric); J45.909 Unspecified asthma, uncomplicated; K21.9 Gastro-esophageal reflux disease without esophagitis; Z79.01 Long term (current) use of anticoagulants; E11.51 Type 2 diabetes mellitus with diabetic peripheral angiopathy without gangrene

== ENCOUNTER → 2019-06-29 10:48 | Outpatient (CLI) | payer OTHER ==
[2019-05-22 13:14] VITALS: BMI 57.4
[~2019-06-29 10:48] MED LIST changes: +LASIX40 MG PO; +POTASSIUM CHLO20 MEQ PO
== END | disposition home or self-care (01) ==
LOC: D.US 10:48
PROVIDERS: ATTEND Surgery
DX: I87.2 Venous insufficiency (chronic) (peripheral) (principal)

== ENCOUNTER 2019-07-14 05:45 | Day surgery (SDC) | payer OTHER ==
[~2019-07-14] VITALS: Ht 175.3 cm; Wt 176.8 kg
[2019-07-14 06:01] LABS: BASOPHILS 0.3 % (0-2); EOSINOPHILS 1.9 % (0-7); HEMATOCRIT 44.7 % (42.0-54.0); HEMOGLOBIN 14.5 g/dL (13.5-17.5); IMMATURE GRANULOCYTES 3.4 % (0-5); LYMPHOCYTES 25.6 % (15-50); MCH 28.2 pg (26.0-34.0); MCHC 32.4 g/dL (31.0-37.0); MCV 86.8 fL (80.0-100.0); MEAN PLATELET VOLUME 11.9 fL (7.4-10.4); MONOCYTES 10.4 % (2-11); NEUTROPHILS 58.4 % (40-80); PLATELET COUNT 172 10x3/uL (130-400); RBC 5.15 10x6/uL (4.20-6.10); RDW 14.6 % (11.5-14.5); WBC 5.9 10x3/uL (4.8-10.8)
[2019-07-14 06:13] LABS: APTT 27.6 SECONDS (22.8-39.4); INR 1.07 (0.85-1.17); PROTIME 13.8 SECONDS (11.6-15.0)
[2019-07-14 06:14] LABS: ANION GAP 14.7 mmol/L (8-16); CALCIUM 8.4 mg/dL (8.5-10.1); CARBON DIOXIDE 23.7 mmol/L (21.0-32.0); CREATININE - SERUM 1.4 mg/dL (0.6-1.3); POTASSIUM - SERUM 4.4 mmol/L (3.5-5.1)
[2019-07-14] MEDS ORDERED: HUMALOG 30100 UNITS/ SQ (06:52)
[2019-07-14 07:27] VITALS: BP 128/56; BMI 58.0
--- NOTE | 2019-07-14 08:36 | NUR ---
0745 DR DAWKINS WAS NOTIFIED BY ISAURA GARCIAS RN OF PATIENT'S EKG. ANESTHESIA HAS BEEN MANAGING BLOOD SUGARS. 0755 DR DAWKINS HERE TO ASSESS PT. REQUESTED A REPEAT EKG. PREVIOUS EKGS FROM [address] DAWKINS FOR COMPARISON. 0[address] DR DAWKINS REQUESTED A REPEAT BS. RESULTS IS 286 AT 0805. ORDERS TO REPEAT IN 20 MINUTES 0827 REPEAT BS IS [address] DAWKINS. RECEIVED TELEPHONE ORDER TO GIVE 10 UNITS OF HUMULIN R IV AND REPEAT BS IN [address] DAWKINS STATES THAT DR RIVERA HAS GIVEN CARDIAC CLEARANCE.
--- NOTE | 2019-07-14 09:05 | NUR ---
[address] DAWKINS. PT IS CLEARED BY DR DAWKINS TO PROCEED WITH SURGERY. SURGERY DESK NOTIFIED.
--- NOTE | 2019-07-14 11:28 | NUR ---
NED REF [id number] EXP 04/01/2024
[2019-07-14 14:26] VITALS: BP 140/81
--- NOTE | 2019-07-14 14:40 | NUR ---
DROUSY BUT AROUSES TO NAME AND ANSWERS QUESTIONS APROPRIATE. DRESSISGN INTACT TO RIGHT GROIN WITH PEDAL PULSES NOTED. DENIES ANY PAIN OR IDISCOMFORT AND REFUSES SUPERVISOR SPRING UP DILAUDID AND WANTS TRAMADOL INSTEAD. MD TO BE NOTIFIED. IVF INFUSING AT RPESCRIBED RATE WITH NO S/S OF INFECTION/INFILTRATION. ENCOURAGTED TO USE CALL LIGHT FOR ASSSIT.
[2019-07-14 16:28] VITALS: BP 147/77
[2019-07-14 17:16] VITALS: BP 140/81; BMI 57.6
[2019-07-14 20:00] VITALS: BP 132/86
[2019-07-15] VITALS: BP 128/79
[2019-07-15 04:00] VITALS: BP 134/80
[2019-07-15 05:34] LABS: BASOPHILS 0.3 % (0-2); HEMATOCRIT 41.8 % (42.0-54.0); HEMOGLOBIN 13.6 g/dL (13.5-17.5); IMMATURE GRANULOCYTES 1.4 % (0-5); LYMPHOCYTES 17.6 % (15-50); MCH 28.6 pg (26.0-34.0); MCHC 32.5 g/dL (31.0-37.0); MCV 87.8 fL (80.0-100.0); MEAN PLATELET VOLUME 12.1 fL (7.4-10.4); MONOCYTES 9.4 % (2-11); NEUTROPHILS 70.3 % (40-80); PLATELET COUNT 161 10x3/uL (130-400); RBC 4.76 10x6/uL (4.20-6.10)
[2019-07-15 05:42] LABS: WBC 7.7 10x3/uL (4.8-10.8)
[2019-07-15 05:51] LABS: ANION GAP 13.4 mmol/L (8-16); CALCIUM 8.2 mg/dL (8.5-10.1); CARBON DIOXIDE 24.3 mmol/L (21.0-32.0); CREATININE - SERUM 1.1 mg/dL (0.6-1.3); MAGNESIUM - SERUM 1.8 mg/dL (1.8-2.4); PHOSPHOROUS 3.7 mg/dL (2.5-4.9)
[2019-07-15 05:52] LABS: POTASSIUM - SERUM 3.7 mmol/L (3.5-5.1)
[2019-07-15 05:55] LABS: INR 1.09 (0.85-1.17)
--- NOTE | 2019-07-15 10:14 | NUR ---
PT ALERT X 4. BREATH SOUNDS CLEAR BILAT. IV TO LEFT FOREARM, PATENT, DRESSING CDI. ABDOMEN DISTENDED AND FIRM, PT STATES THIS IS HIS BASELINE. DRESSINGS TO BLE CDI. PT REPORTING PAIN OF 10/10, WILL CONTINUE TO MONITOR. BED LOW, CALL LIGHT IN REACH. NO OTHER NEEDS AT THIS TIME.
[2019-07-15 12:27] VITALS: Ht 175.3 cm; Wt 176.8 kg
[2019-07-15 14:18] VITALS: BP 113/55
--- NOTE | 2019-07-15 17:29 | NUR ---
DISCHARGE PAPERWORK SIGNED, ALL QUESTIONS ANSWERED. IV TO LEFT FOREARM DC'D, TIP INTACT. ESCORTED OUT VIA WHEELCHAIR.
--- NOTE | 2019-08-04 10:43 | OP ---
PATIENT NAME: FRANCINE CERVANTES MEDICAL RECORD: [id number] :[birth year] LOCATION:[facility] ADMISSION DATE: SURGEON: CRESENCIO LEE MD DATE OF OPERATION: 07/14/2019 PREOPERATIVE DIAGNOSES: 1. Severe venous stasis disease involving bilateral lower extremities. Currently, they are CEAP-4 bilaterally, but they have been CEAP-6. 2. History of endovascular vein ablation. 3. History of hypercoagulability. POSTOPERATIVE DIAGNOSES: 1. Severe venous stasis disease involving bilateral lower extremities. Currently, they are CEAP-4 bilaterally, but they have been CEAP- 6. 2. History of endovascular vein ablation. 3. History of hypercoagulability. 4. Apparent failed endovascular vein ablation by ultrasound. PROCEDURE: 1. Ligation of the proximal greater saphenous veins. 2. Open ligation of superficial varicosities times 11. SURGEON: Cresencio Lee MD GENERAL REPAIRER: None. BLOOD LOSS: Minimal. ANESTHESIA: General. COMPLICATIONS: None. Due to hypercoagulability, I felt that endovascular foam ablation in this patient was contraindicated. Additionally, his skin is in such poor condition that any incisions over the areas of swelling and cellulitis in the mid and distal legs would be fraught with wound complications. The patient admits that he is very slow to heal and frequently incisions become infected. OPERATIVE COURSE: The patient was conveyed to the operating room electively on 07/14/2019. General anesthesia was induced by the anesthesia staff. The patient was positioned prone. Both lower extremities were sterilely prepped and draped. Under ultrasonographic guidance, I targeted my incisions in both groin creases. The patient's large panniculus made dissection down to the saphenofemoral junction a little bit difficult, so I elected for a vein ligation of the greater saphenous vein just a few centimeters downstream from the saphenofemoral junction by ultrasound. This should give the same effect as ligation of the saphenofemoral junction. This was performed with a Vicryl suture. The incisions were closed with interrupted 3-0 Vicryls for the deep dermis as well as a running intracuticular 3-0 Vicryl for the skin. Under ultrasonographic guidance, I noted some other superficial veins, which were of deep varicosities. I identified these with the ultrasound. Small incisions were accomplished. I dissected down to the veins and ligated them with 3-0 Vicryls. The skin incisions were closed with interrupted intracuticular 3-0 Vicryls. Sterile dressings were applied. OPERATIVE REPORT [id number] HELENFRANCINE DB The patient was then extubated and conveyed to post-anesthesia care unit where he was in stable condition. I anticipate that he will go home tomorrow. TRANSINT:[id number] Voice Confirmation ID: [id number] DOCUMENT ID: [id number] CRESENCIO LEE MD at 1043 CC: [id number] DICTATION DATE: 08/03/191716 FIRST SAMPLER: 08/03/19 [address] [facility] 07/15/19 [place] [address] [place] [address]
== END 2019-07-15 16:00 | disposition home or self-care (01) ==
LOC: D.OPS 05:45 → D.MS 05:45 → D.OPS 08:00 → D.PAN 08:00 → D.MS 14:03 → D.OPS 07-15 16:00
PROVIDERS: Anesthesiology; Internal Medicine Nephrology; ATTEND Surgery
DX: I87.8 Other specified disorders of veins (principal); E11.9 Type 2 diabetes mellitus without complications; I10 Essential (primary) hypertension; I87.2 Venous insufficiency (chronic) (peripheral); I83.93 Asymptomatic varicose veins of bilateral lower extremities; Z79.84 Long term (current) use of oral hypoglycemic drugs

== ENCOUNTER 2019-08-24 12:25 | Inpatient (IN) | payer OTHER ==
[~2019-08-24] VITALS: Ht 175.3 cm; Wt 176.4 kg
[2019-08-24 14:11] LABS: BASOPHILS 0.4 % (0-2); EOSINOPHILS 1.3 % (0-7); HEMOGLOBIN 12.3 g/dL (13.5-17.5); IMMATURE GRANULOCYTES 1.3 % (0-5); LYMPHOCYTES 21.3 % (15-50); MCH 27.6 pg (26.0-34.0); MCHC 32.4 g/dL (31.0-37.0); MCV 85.4 fL (80.0-100.0); MEAN PLATELET VOLUME 11.1 fL (7.4-10.4); MONOCYTES 13.3 % (2-11); NEUTROPHILS 62.4 % (40-80); RBC 4.45 10x6/uL (4.20-6.10); RDW 15.3 % (11.5-14.5); WBC 5.5 10x3/uL (4.8-10.8)
[2019-08-24 14:20] LABS: ANION GAP 8.6 mmol/L (8-16); CALCIUM 8.6 mg/dL (8.5-10.1); CARBON DIOXIDE 25.9 mmol/L (21.0-32.0); CREATININE - SERUM 1.2 mg/dL (0.6-1.3); POTASSIUM - SERUM 3.5 mmol/L (3.5-5.1)
[2019-08-24 14:26] LABS: ALBUMIN 2.8 g/dL (3.4-5.0); BILIRUBIN - TOTAL 0.44 mg/dL (0.2-1.3); PROTEIN - SERUM 6.4 g/dL (6.4-8.2)
[2019-08-24 14:31] LABS: PLATELET COUNT 119 10x3/uL (130-400)
[2019-08-24 15:03] LABS: APTT 46.3 SECONDS (22.8-39.4); INR 1.34 (0.85-1.17); PROTIME 16.4 SECONDS (11.6-15.0)
[2019-08-24 16:34] LABS: BILIRUBIN NEGATIVE (NEGATIVE); GLUCOSE NEGATIVE (NEGATIVE); KETONE NEGATIVE (NEGATIVE); NITRITE NEGATIVE (NEGATIVE); UROBILINOGEN NORMAL (NORMAL)
[2019-08-24 16:45] VITALS: BP 110/67
--- NOTE | 2019-08-24 18:45 | NUR ---
PATIENT IN BED WITH IV INTACT. NO COMPLAINTS OR SIGNS OF DISTRESS. WAITING FOR ROCEPHIN TO FINISH TO HANG VANC. CALL LIGHT WITHIN REACH.
[2019-08-24 19:39] VITALS: BMI 57.4
[2019-08-24 20:00] VITALS: BP 115/63
[2019-08-25] VITALS: BP 93/56
--- NOTE | 2019-08-25 02:24 | NUR ---
I have reviewed this patient and I concur with the Shift Assessment completed by the Licensed Practical Nurse today this shift.
[2019-08-25 04:00] VITALS: BP 95/56
[2019-08-25 06:21] LABS: BASOPHILS 0.2 % (0-2); EOSINOPHILS 2.5 % (0-7); HEMATOCRIT 36.5 % (42.0-54.0); HEMOGLOBIN 11.7 g/dL (13.5-17.5); IMMATURE GRANULOCYTES 2.1 % (0-5); LYMPHOCYTES 27.4 % (15-50); MCH 27.7 pg (26.0-34.0); MCHC 32.1 g/dL (31.0-37.0); MCV 86.3 fL (80.0-100.0); MEAN PLATELET VOLUME 12.4 fL (7.4-10.4); MONOCYTES 14.8 % (2-11); PLATELET COUNT 130 10x3/uL (130-400); RBC 4.23 10x6/uL (4.20-6.10); RDW 15.5 % (11.5-14.5); WBC 4.4 10x3/uL (4.8-10.8)
[2019-08-25 06:40] LABS: ALBUMIN 2.7 g/dL (3.4-5.0); ANION GAP 11.8 mmol/L (8-16); BILIRUBIN - TOTAL 0.32 mg/dL (0.2-1.3); CALCIUM 8.1 mg/dL (8.5-10.1); CARBON DIOXIDE 25.7 mmol/L (21.0-32.0); CREATININE - SERUM 1.3 mg/dL (0.6-1.3); POTASSIUM - SERUM 3.5 mmol/L (3.5-5.1); PROTEIN - SERUM 5.3 g/dL (6.4-8.2)
--- NOTE | 2019-08-25 08:00 | NUR ---
ASSESSMENT PER FLOW SHEET. PATIENT IS WITHOUT DISTRESS.MONITOR FOR NEEDS
[2019-08-25 08:26] VITALS: BP 93/47
--- NOTE | 2019-08-25 12:08 | NUR ---
Pt has healing surgical wounds on right groin and in the bend of his right knee. Right knee 1cm x 3cm x 0.4cm Right groin: 0.5cm x 2cm x 0.3cm Both have red wound beds, no drainage and no odor. Wounds are being packed with plain 1/4" packing moistened with saline. Recommend continuing with the same. Wound care following.
[2019-08-25 12:45] VITALS: BP 114/58
[2019-08-25 16:49] VITALS: BP 120/44
--- NOTE | 2019-08-25 18:09 | NUR ---
ADMINISTERED PROTONIX. ASSESSED BLOOD SUGAR. ADMINISTERED 6 UNITS OF INSULIN PER SLIDING SCALE FOR SUGAR OF 279.
--- NOTE | 2019-08-25 18:52 | NUR ---
REMAINS WITHOUT NEEDS.CONT PLAN OF CARE
[2019-08-25 20:00] VITALS: BP 136/73
--- NOTE | 2019-08-25 20:00 | NUR ---
PATIENT RESTING IN BED ON PHONE WITH TV ON. NO S/S OF ACUTE DISTRESS. NO C/O AT THIS TIME. PATIENT DID ASK IF HE COULD SEE HIS DAD IN REHAB SOMETIME THIS WEEKEND, AND I TOLD HIM THAT WE WILL TRY TO ARRAGE THAT. PATIENT HAS LEFT FOREARM IV, NORMAL SALINE @ 50 ML/HR. IV IS PATENT WITHOUT REDNESS, SWELLING, OR TENDERNESS. PATIENT HAS A RIGHT GROIN DRESSING/PACKING C/D/I. PATIENT HAS A RIGHT KNEE DRESSING C/D/I. PATIENT NEEDS HELP WITH URINAL BECAUSE HE CAN'T HOLD IT HIMSELF. PATIENT WEARS PERSONAL CPAP AT NIGHT WHEN SLEEPING. CALL LIGHT WITHIN REACH. WILL CONTINUE TO MONITOR.
[2019-08-26] VITALS: BP 125/77
--- NOTE | 2019-08-26 03:00 | NUR ---
I have reviewed this patient and I concur with the Shift Assessment completed by the Licensed Practical Nurse today this shift.
[2019-08-26 04:00] VITALS: BP 114/52
--- NOTE | 2019-08-26 07:30 | NUR ---
LYING IN BED,WITHOUT NEEDS.CALL LIGHT IN REACH
[2019-08-26 08:00] VITALS: BP 154/79
[2019-08-26 09:11] VITALS: BP 110/59
[2019-08-26 13:05] VITALS: BP 120/59
[2019-08-26 13:22] LABS: BASOPHILS 0.7 % (0-2); EOSINOPHILS 2.7 % (0-7); HEMATOCRIT 36.9 % (42.0-54.0); HEMOGLOBIN 11.9 g/dL (13.5-17.5); IMMATURE GRANULOCYTES 4.8 % (0-5); LYMPHOCYTES 24.1 % (15-50); MCH 27.9 pg (26.0-34.0); MCHC 32.2 g/dL (31.0-37.0); MCV 86.6 fL (80.0-100.0); MEAN PLATELET VOLUME 12.9 fL (7.4-10.4); MONOCYTES 10.5 % (2-11); NEUTROPHILS 57.2 % (40-80); PLATELET COUNT 130 10x3/uL (130-400); RBC 4.26 10x6/uL (4.20-6.10); RDW 15.3 % (11.5-14.5); WBC 4.4 10x3/uL (4.8-10.8)
[2019-08-26 14:37] LABS: ANION GAP 16.9 mmol/L (8-16); CALCIUM 8.3 mg/dL (8.5-10.1); CREATININE - SERUM 1.3 mg/dL (0.6-1.3); POTASSIUM - SERUM 4.9 mmol/L (3.5-5.1)
--- NOTE | 2019-08-26 14:41 | NUR ---
rehab prescreen: thank you for this eval, will monitor pt progress and make sure he is a canidate for irf. he has no[employer] insurance and will need authorzation before able to transfer. will watch progression til hear back from insurance. thank you for this eval. vanessa gregory lpn clinical liasion
--- NOTE | 2019-08-26 15:28 | NUR ---
PER DR TOTH REMOVE ANIKET BANDAGE FROM PT RT KNEE DRESSING BANDAGE WAS ACTING A TOURNIQUET. PT LYING IN BED ASLEEP, REMOVED BANDAGE AND PT NEVER WOKE UP. NO S/SX OF DISTRESS, CL IN REACH CONTINUE WITH PLAN OF CARE
[2019-08-26 16:26] VITALS: BP 146/70
--- NOTE | 2019-08-26 17:13 | NUR ---
PT SPOUSE AT BEDSIDE, TLD PT I NEED TO CHANGE DRESSINGS TO LEG AND GROIN BEFORE SUPPER, PT STATED HE DECLINES AND WILL HAVE IT DONE TONIGHT. NO OTHER NEEDS VOICED, CL IN REACH. CONTINUE WITH PLAN OF CARE
--- NOTE | 2019-08-26 19:15 | NUR ---
ALERT AND ORIENTED. PLAYING GAMES ON CELL PHONE. RIGHT LOWER EXTREMEY HAS SWELLING TO THE UPPER THIGH AND ALSO ELOW THE KNEE. DRESSING TO THE RIGHT GROIN IS CDI. DRESSING TO THE POSTERIOR RIGHT KNEE IS CLEAN DRY AND INTACT. PATIENT HAS A LEFT FOREARM 20 G IV THAT IS INFUSING NS. NO REDNESS OR INFILTRATION NOTED AT THIS TIME. PATIENT HAS CLEAR LUNG SOUNDS BILATERALLY. ACTIVE BOWEL SOUNDS. DENIES NEEDS AT THIS TIME. CALL LIGHT IS CLOSE. CPOC.
--- NOTE | 2019-08-26 23:26 | NUR ---
REQUESTED PAIN MEDICINE FOR COMPLAINTS OF RLE AND GENERALIZED PAIN. ADMINISTERED PER ORDER. PATIENT DENIES FURTHER NEEDS AT THIS TIME. CALL LIGHT REMAINS CLOSE. CPOC.
[2019-08-27] VITALS: BP 128/68
--- NOTE | 2019-08-27 00:10 | NUR ---
ASSISTED PATIENT WITH URINAL. DENIES FURTHER NEEDS AT THIS TIME. CPOC.
[2019-08-27 04:00] VITALS: BP 96/63
[2019-08-27 06:47] LABS: BASOPHILS 0.3 % (0-2); EOSINOPHILS 2.4 % (0-7); HEMATOCRIT 36.8 % (42.0-54.0); HEMOGLOBIN 11.8 g/dL (13.5-17.5); IMMATURE GRANULOCYTES 11.6 % (0-5); LYMPHOCYTES 26.2 % (15-50); MCH 27.4 pg (26.0-34.0); MCHC 32.1 g/dL (31.0-37.0); MCV 85.6 fL (80.0-100.0); MEAN PLATELET VOLUME 11.8 fL (7.4-10.4); MONOCYTES 8.6 % (2-11); NEUTROPHILS 50.9 % (40-80); PLATELET COUNT 140 10x3/uL (130-400); RDW 15.1 % (11.5-14.5)
[2019-08-27 06:58] LABS: WBC 5.8 10x3/uL (4.8-10.8)
[2019-08-27 06:59] LABS: CALCIUM 8.6 mg/dL (8.5-10.1); CARBON DIOXIDE 26.2 mmol/L (21.0-32.0); CREATININE - SERUM 1.2 mg/dL (0.6-1.3); MAGNESIUM - SERUM 1.9 mg/dL (1.8-2.4); POTASSIUM - SERUM 4.2 mmol/L (3.5-5.1)
[2019-08-27 08:00] VITALS: BP 118/58
--- NOTE | 2019-08-27 09:00 | NUR ---
ASSESSMENT PER FLOW SHEET. PATIENT IS WITHOUT DISTRESS.MONITOR FOR NEEDS
--- NOTE | 2019-08-27 11:35 | NUR ---
DRESSING CHANGE ORDERED BEHIND RIGHT KNEE AND RIGHT GROIN.
[2019-08-27 12:00] VITALS: BP 138/68
[2019-08-27 16:00] VITALS: BP 126/62
--- NOTE | 2019-08-27 18:21 | NUR ---
REMAINS WITHOUT DISTRESS.WITHOUT CHANGE,CONT PLAN OF CARE
[2019-08-27 20:00] VITALS: BP 127/67
[2019-08-28] VITALS: BP 123/66
--- NOTE | 2019-08-28 00:59 | NUR ---
PATIENT IN BED WITH IV TO LEFT FA WITH NS PER ORDERS. CALL LIGHT AND WATER IN REACH. C PAP WHEN HE SLEEPS. NO NEEDS AT THIS TIME.
[2019-08-28 04:00] VITALS: BP 126/56
[2019-08-28 05:18] LABS: HEMATOCRIT 37.9 % (42.0-54.0); HEMOGLOBIN 12.2 g/dL (13.5-17.5); MCH 27.9 pg (26.0-34.0); MCHC 32.2 g/dL (31.0-37.0); MCV 86.7 fL (80.0-100.0); MEAN PLATELET VOLUME 11.8 fL (7.4-10.4); PLATELET COUNT 147 10x3/uL (130-400); RBC 4.37 10x6/uL (4.20-6.10); RDW 15.1 % (11.5-14.5); WBC 5.6 10x3/uL (4.8-10.8)
[2019-08-28 05:23] LABS: ANION GAP 8.1 mmol/L (8-16); CALCIUM 8.8 mg/dL (8.5-10.1); CREATININE - SERUM 1.2 mg/dL (0.6-1.3); MAGNESIUM - SERUM 1.9 mg/dL (1.8-2.4); POTASSIUM - SERUM 4.1 mmol/L (3.5-5.1)
[2019-08-28 05:47] LABS: EOSINOPHILS 2 % (0-7); LYMPHOCYTES 39 % (15-50); MONOCYTES 5 % (2-11); NEUTROPHILS 46 % (40-80)
[2019-08-28 05:51] LABS: PLATELET ESTIMATE DECREASED
--- NOTE | 2019-08-28 07:20 | NUR ---
A&O. UP WITH PHYSICAL THERAPY. NO C/O PAIN. NO S/S OF ACUTE DISTRESS NOTED. SCDS ON. USES URINAL. WOUND TO GROIN AND BEHIND RIGHT KNEE, DRESSING C/D/I. USES CPAP WHEN ASLEEP. IV TO LEFT FOREARM, NS INFUSING @ 50ML/HR. SITE PATENT WITHOUT REDNESS OR SWELLING. DENIES ANY NEEDS AT THIS TIME. CALL LIGHT IN REACH. WILL CONTINUE TO MONITOR.
[2019-08-28 09:07] VITALS: BP 131/75
[2019-08-28 12:26] VITALS: BP 124/79
[2019-08-28 17:10] VITALS: BP 135/72
--- NOTE | 2019-08-28 18:21 | NUR ---
I have reviewed this patient and I concur with the Shift Assessment completed by the Licensed Practical Nurse today this shift.
--- NOTE | 2019-08-28 18:22 | NUR ---
A&O. NO C/O PAIN. NO S/S OF ACUTE DISTRESS NOTED. DENIES ANY NEEDS AT THIS TIME. CALL LIGHT IN REACH. WILL CONTINUE TO MONITOR.
[2019-08-28 20:37] VITALS: BP 142/71
[2019-08-29 00:50] VITALS: BP 114/50
[2019-08-29 06:22] LABS: BASOPHILS 0.6 % (0-2); EOSINOPHILS 2.6 % (0-7); HEMATOCRIT 36.7 % (42.0-54.0); IMMATURE GRANULOCYTES 16.2 % (0-5); MCH 28.1 pg (26.0-34.0); MCHC 32.7 g/dL (31.0-37.0); MCV 85.9 fL (80.0-100.0); MEAN PLATELET VOLUME 11.2 fL (7.4-10.4); NEUTROPHILS 56.6 % (40-80); PLATELET COUNT 163 10x3/uL (130-400); RBC 4.27 10x6/uL (4.20-6.10); RDW 14.9 % (11.5-14.5)
[2019-08-29 06:44] LABS: ANION GAP 10.1 mmol/L (8-16); CALCIUM 8.4 mg/dL (8.5-10.1); CARBON DIOXIDE 28.7 mmol/L (21.0-32.0); CREATININE - SERUM 1.2 mg/dL (0.6-1.3); MAGNESIUM - SERUM 1.8 mg/dL (1.8-2.4); POTASSIUM - SERUM 3.8 mmol/L (3.5-5.1)
[2019-08-29 06:48] VITALS: BP 107/66
--- NOTE | 2019-08-29 07:51 | NUR ---
PT SITTING UP IN BED READY FOR REHAB, STATED THAT REHAB CAME AND SPOKE TO HIM YESTERDAY AND HE IS READY TO GO, PT HAS SCRATCHES AND SORES ON ABDOMEN AND LEGS, ASSISTED PT WITH URINAL. NO OTHER NEEDS AT THIS TIME, CONTINUE WITH PLAN OF CARE
[2019-08-29 08:24] VITALS: BP 114/67
[2019-08-29 12:14] VITALS: BP 123/42
--- NOTE | 2019-08-29 12:26 | NUR ---
I have reviewed this patient and I concur with the Shift Assessment completed by the Licensed Practical Nurse today this shift.
--- NOTE | 2019-08-29 14:22 | MORECARE ---
CASE MANAGEMENT DISCHARGE SUMMARY PATIENT: FRANCINE CERVANTES UNIT: [id number] ADM DATE: 08/24/19 AGE: 54 : 61 SEX: M ROOM/BED: D.2215 AUTHOR: SHERWINDOC PHYSICIAN: REFERRING PHYSICIAN: HANK ALEJANDRE DO DATE OF SERVICE: 08/29/19 Discharge Plan Patient Name: FRANCINE CERVANTES Facility: [facility]:[place] : 1965 Planned Disposition: Inpatient Rehab Anticipated Discharge Date: Discharge Date: Expected LOS: Initial Reviewer: [id number] Initial Review Date: 08/24/2019 Generated: 08/29/19 3:21 pm Comments DCP- Discharge Planning Updated by [id number]: Awa Lazo on 08/29/19 1:[address] Patient Name: FRANCINE CERVANTES Admission Status: Elective Accout number: [id number] Admission Date: 08-24-2019 : 1965 Admission Diagnosis:CELLULITIS OF RIGHT LOWER LIMB Attending: HANK ALEJANDRE Current LOS: 5 Anticipated DC Date: Planned Disposition: Inpatient Rehab Primary Insurance: [employer] Discharge Planning Comments: CM met with patient to complete initial dc planning assessment. CM educated patient on the CM role and verbal consent given by patient to complete assessment. Patient lives at home with his spouse where he is partially independent with his care. At discharge patient plans to go to inpatient rehab at [facility] and feels this is a safe discharge. CM discussed availability of home health, rehab services, and medical equipment. He is current with [facility]. He has a Hospital bed, bipap, cane, glucometer, shower chair, and a rollator (that is at [facility]) DEMARCO has been signed for inpatient rehab at [facility], [facility] (bipap) [facility] ([facility]) . IMM served and explained. Patient denied known discharge needs at this time. CM will continue to follow and will assist as needed with dc plans/needs. Airplane Navigator: Awa Lazo DCPIA - Discharge Planning Initial Assessment Updated by [id number]: Awa Lazo on 08/29/19 2:17 pm * Is the patient Alert and Oriented? Yes * How many steps to enter\exit or inside your home? * PCP [facility] * Pharmacy [facility] [address] * Preadmission Environment Home with Family * ADLs Partial Dependent * Partial ADLs (Assistance needed) Ambulation Dressing * Equipment Bedside Commode BIPAP Glucometer Hospital Bed Rolling Walker Shower Chair * List name and contact numbers for known caregivers / representatives who currently or will assist patient after discharge: ELIDA () [phone] * Verbal permission to speak to the caregivers and representatives has been obtained from the patient. N/A * Community resources currently utilized Home Health * Please name any agencies selected above. [facility] * Additional services required to return to the preadmission environment? Yes * Can the patient safely return to the preadmission environment? No * Has this patient been hospitalized within the prior 30 days at any hospital? No Coverage Notice Reviewer: [id number] Pepe Lazo Notice Issued Date-Time: 08/29/2019 13:40 Notice Type: IM Discharge Notice Notice Delivered To: Patient Relationship to Patient: Labor Contractor Name: Delivery Method: HAND - Hand Delivered Mima Days: Prior Verbal Notification: Recipient Understood Notice: Yes Recipient Signature: Yes Med Rec Note Co-signed by Attending: Coverage Notice Comment: imm served Reviewer: [id number] Pepe Lazo Notice Issued Date-Time: 08/29/2019 13:40 Notice Type: Patient Choice Letter Notice Delivered To: Patient Relationship to Patient: Labor Contractor Name: Delivery Method: HAND - Hand Delivered Mima Days: Prior Verbal Notification: Recipient Understood Notice: Yes Recipient Signature: Yes Med Rec Note Co-signed by Attending: Coverage Notice Comment: demarco with inpatient rehab [facility] Patient Name: FRANCINE CERVANTES Page [phone] at 1422 All edits/amendments must be made on the electronic document DICTATION DATE: 08/29/19 142 LITIGATION SPECIALIST: JACKELIN 08/29/19 142 RPT#: [id number] DC DATE: STATUS: ADM IN [facility] [address] [place] [address] END OF REPORT
[2019-08-29 16:45] VITALS: BP 123/70
--- NOTE | 2019-08-29 17:11 | NUR ---
OT NOTE: BED MOB WITH MIN ASSIST FOR SUPINE TO SIT; SIT TO STAND WITH WALKER AND MIN ASSIST; ABLE TO AMB IN ROOM WITH WALKER AND MIN ASSIST; AMB APPROX 10 FT OUT THE DOOR AND PT REPORTED THAT HE NEEDED TO SIT DOWN DUE TO PAIN IN HIS R LE. TRANSFERRED TO CHAIR WITH MIN ASSIST. REQUIRED MAX ASSIST TO CANDICE SOCKS AND MOD ASSIST TO CANDICE SHORTS. MIN ASSIST TO CANDICE GOWN. SET UP WITH SIMPLE GROOMING. PT FATIGUES QUICKLY DUE TO DECREASED FUNCTIONAL ENDURANCE. RECOMMEND IP REHAB WHEN MEDICALLY STABLE. JONAS HDEZ, OTR/L [phone]
[2019-08-29 20:57] VITALS: BP 140/80
[2019-08-29 22:25] VITALS: Ht 175.3 cm; Wt 176.4 kg
[2019-08-30 01:00] VITALS: BP 143/79
[2019-08-30 06:17] LABS: BASOPHILS 0.9 % (0-2); EOSINOPHILS 3.4 % (0-7); HEMATOCRIT 38.4 % (42.0-54.0); HEMOGLOBIN 12.4 g/dL (13.5-17.5); IMMATURE GRANULOCYTES 15.3 % (0-5); LYMPHOCYTES 20.6 % (15-50); MCH 27.7 pg (26.0-34.0); MCHC 32.3 g/dL (31.0-37.0); MCV 85.7 fL (80.0-100.0); MEAN PLATELET VOLUME 11.6 fL (7.4-10.4); MONOCYTES 6.2 % (2-11); NEUTROPHILS 53.6 % (40-80); PLATELET COUNT 173 10x3/uL (130-400); RBC 4.48 10x6/uL (4.20-6.10); RDW 14.9 % (11.5-14.5); WBC 7.7 10x3/uL (4.8-10.8)
[2019-08-30 06:30] VITALS: BP 129/60
[2019-08-30 06:32] LABS: ANION GAP 12.2 mmol/L (8-16); CALCIUM 8.2 mg/dL (8.5-10.1); CARBON DIOXIDE 26.6 mmol/L (21.0-32.0); CREATININE - SERUM 1.3 mg/dL (0.6-1.3); POTASSIUM - SERUM 3.8 mmol/L (3.5-5.1)
--- NOTE | 2019-08-30 07:15 | NUR ---
REPORT RECEIVED. PT CURRENTLY ON HOME BIPAP. WILL BE ON ROOM AIR ONCE HE WAKES UP. HE HAS DRESSING TO HIS RIGHT GROIN AND BEHIND HIS RIGHT KNEE. HE IS A FSBS ACHS. HE HAS AN IV TO HIS RIGHT FOREARM WITH NORMAL SALINE AT 50ML/HR.
--- NOTE | 2019-08-30 08:31 | NUR ---
SHOWER GIVED PER REQUEST. DRESSING CHANGED TO LEG AND GROIN. IV RESITED TO RIGHT FOREARM.
[2019-08-30 08:45] VITALS: BP 106/52
--- NOTE | 2019-08-30 09:21 | NUR ---
250ML YELLOW URINE OUT IN URINAL.
--- NOTE | 2019-08-30 13:23 | NUR ---
Rehab Note- Spoke with Daija with [employer]. THe patient has been approved for inpatient acute rehab stay, Auth #[id number]. Spoke with Ava, screening unit registered nurse to relay message to ANTHONY Gold. Thank you for this referral! Carolina Joseph RN Clinical Liaison, [facility]
[2019-08-30 13:28] VITALS: BP 108/56
[2019-08-30] MEDS ORDERED: VANCOMYCIN 1 GM/1 G1 IV (14:31)
[2019-08-30] MEDS ORDERED: ROCEPHIN 1 GM/D51 G1 IVPB (14:31)
[2019-08-30] MEDS ORDERED: Unna-Flex TOPICAL (14:32)
--- NOTE | 2019-08-30 14:45 | NUR ---
STAT CT SCAN FOR BLOOD CLOTS FROM CATHETER. PT RETAINING FLUID IN BLADDER. TAN RN, FLUSHED CATHETER MULTIPLE TIMES AND PULLED SOME CLOTS. UNABLE TO GET URINE FLOWING INTO BAG. PT HAS ABDOMINAL TENDERNESS. CLYDE DUNNE, ROUNDED ON PT. WILL CONTINUE TO MONITOR.
--- NOTE | 2019-08-30 15:37 | MORECARE ---
CASE MANAGEMENT DISCHARGE SUMMARY PATIENT: FRANCINE CERVANTES UNIT: [id number] ADM DATE: 08/24/19 AGE: 54 : 61 SEX: M ROOM/BED: D.2215 AUTHOR: MARIAMA COURTNEY PHYSICIAN: REFERRING PHYSICIAN: HANK ALEJANDRE DO DATE OF SERVICE: 08/30/19 Discharge Plan Patient Name: FRANCINE CERVANTES Facility: [facility]:[place] : 1965 Planned Disposition: Inpatient Rehab Anticipated Discharge Date: Discharge Date: Expected LOS: Initial Reviewer: [email or web address] Initial Review Date: 08/24/2019 Generated: 08/30/19 4:36 pm Comments DCP- Discharge Planning Updated by [id number]: Awa Lazo on 08/30/19 2:[address] Patient has been accepting to inpatient rehab at [facility] & will be discharged today DCP- Discharge Planning Updated by [id number]: Awa Lazo on 08/29/19 1:[address] Patient Name: FRANCINE CERVANTES Admission Status: Elective Accout number: [id number] Admission Date: 08-24-2019 : 1965 Admission Diagnosis:CELLULITIS OF RIGHT LOWER LIMB Attending: HANK ALEJANDRE Current LOS: 5 Anticipated DC Date: Planned Disposition: Inpatient Rehab Primary Insurance: [facility] Discharge Planning Comments: CM met with patient to complete initial dc planning assessment. CM educated patient on the CM role and verbal consent given by patient to complete assessment. Patient lives at home with his spouse where he is partially independent with his care. At discharge patient plans to go to inpatient rehab at [facility] and feels this is a safe discharge. CM discussed availability of home health, rehab services, and medical equipment. He is current with [facility] . He has a Hospital bed, bipap, cane, glucometer, shower chair, and a rollator ([facility] at [facility]) DEMARCO has been signed for inpatient rehab at [facility], [facility] (bipap) [facility] ([facility]) . IMM served and explained. Patient denied known discharge needs at this time. CM will continue to follow and will assist as needed with dc plans/needs. Single Wire Saw Operator: Awa Lazo DCPIA - Discharge Planning Initial Assessment Updated by [id number]: Awa Lazo on 08/29/19 2:17 pm * Is the patient Alert and Oriented? Yes * How many steps to enter\exit or inside your home? * PCP [facility] * Pharmacy [facility] [address] * Preadmission Environment Home with Family * ADLs Partial Dependent * Partial ADLs (Assistance needed) Ambulation Dressing * Equipment Bedside Commode BIPAP Glucometer Hospital Bed Rolling Walker Shower Chair * List name and contact numbers for known caregivers / representatives who currently or will assist patient after discharge: ELIDA () [phone] * Verbal permission to speak to the caregivers and representatives has been obtained from the patient. N/A * Community resources currently utilized Home Health * Please name any agencies selected above. [facility] * Additional services required to return to the preadmission environment? Yes * Can the patient safely return to the preadmission environment? No * Has this patient been hospitalized within the prior 30 days at any hospital? No Coverage Notice Reviewer: [id number] Pepe Lazo Notice Issued Date-Time: 08/29/2019 13:40 Notice Type: IM Discharge Notice Notice Delivered To: Patient Relationship to Patient: Lime Hide Inspector Name: Delivery Method: HAND - Hand Delivered Mima Days: Prior Verbal Notification: Recipient Understood Notice: Yes Recipient Signature: Yes Med Rec Note Co-signed by Attending: Coverage Notice Comment: imm served Reviewer: [id number] Pepe Lazo Notice Issued Date-Time: 08/29/2019 13:40 Notice Type: Patient Choice Letter Notice Delivered To: Patient Relationship to Patient: Lime Hide Inspector Name: Delivery Method: HAND - Hand Delivered Mima Days: Prior Verbal Notification: Recipient Understood Notice: Yes Recipient Signature: Yes Med Rec Note Co-signed by Attending: Coverage Notice Comment: demarco with inpatient rehab [facility] Last DP export: 08/29/19 1:22 p Patient Name: FRANCINE CERVANTES Page [id number] at 1537 All edits/amendments must be made on the electronic document DICTATION DATE: 08/30/19 1536 LAND AGENT: JACKELIN 08/30/191535 RPT#: [id number] [place] DATE: STATUS: ADM IN [facility] [address] [place] [address] END OF REPORT
--- NOTE | 2019-08-30 16:54 | NUR ---
OT NOTE: PT COMPLETED SUPINE TO SIT WITH CGA. PT REQUIRED MIN A TO THREAD SHORTS AT EOB. PT COMPLETED ADL MOB IN ROOM WITH CGA. PT COMPLETED REACHING AND BENDING TASK WHILE LOOKING IN CLOSET WITH MIN A. PT COMPLETED CANDICE SHOES AT EOB WITH SBA. [phone] THANK YOU,CHAGO NEWSOME
--- NOTE | 2019-08-30 17:24 | NUR ---
PT GOING TO ROOM 1108 IN REHAB. REPORT GIVEN TO MILTON COPELAND.
--- NOTE | 2019-08-30 18:19 | NUR ---
PT TRANSFERRED VIA WHEELCHAIR TO REHAB ROOM 1108.
--- NOTE | 2019-08-31 09:07 | MORECARE ---
CASE MANAGEMENT DISCHARGE SUMMARY PATIENT: FRANCINE CERVANTES UNIT: [id number] ADM DATE: 08/24/19 AGE: 54 : 61 SEX: M ROOM/BED: D.2211 AUTHOR: MARIAMA COURTNEY PHYSICIAN: REFERRING PHYSICIAN: HANK ALEJANDRE DO DATE OF SERVICE: 08/31/19 Discharge Plan Patient Name: FRANCINE CERVANTES Facility: [facility]:[place] : 1965 Planned Disposition: Inpatient Rehab Anticipated Discharge Date: Discharge Date: 08/30/2019 Expected LOS: Initial Reviewer: [id number] Initial Review Date: 08/24/2019 Generated: 08/31/19 10:07 am Comments DCP- Discharge Planning Updated by [id number]: Awa Lazo on 08/30/19 2:[address] Patient has been accepting to inpatient rehab at [facility] & will be discharged today DCP- Discharge Planning Updated by [id number]: Awa Lazo on 08/29/19 1:[address] Patient Name: FRANCINE CERVANTES Admission Status: Elective Accout number: [id number] Admission Date: 08-24-2019 : 1965 Admission Diagnosis:CELLULITIS OF RIGHT LOWER LIMB Attending: HANK ALEJANDRE Current LOS: 5 Anticipated DC Date: Planned Disposition: Inpatient Rehab Primary Insurance: [facility] Discharge Planning Comments: CM met with patient to complete initial dc planning assessment. CM educated patient on the CM role and verbal consent given by patient to complete assessment. Patient lives at home with his spouse where he is partially independent with his care. At discharge patient plans to go to inpatient rehab at [facility] and feels this is a safe discharge. CM discussed availability of home health, rehab services, and medical equipment. He is current with [facility] . He has a Hospital bed, bipap, cane, glucometer, shower chair, and a rollator (that is at [facility]) DEMARCO has been signed for inpatient rehab at [facility], [facility] (bipap) [facility] ([facility]) . IMM served and explained. Patient denied known discharge needs at this time. CM will continue to follow and will assist as needed with dc plans/needs. Mill Helper: Awa Lazo DCPIA - Discharge Planning Initial Assessment Updated by [id number]: Awa Lazo on 08/29/19 2:17 pm * Is the patient Alert and Oriented? Yes * How many steps to enter\exit or inside your home? * PCP [facility] * Pharmacy [facility] [address] * Preadmission Environment Home with Family * ADLs Partial Dependent * Partial ADLs (Assistance needed) Ambulation Dressing * Equipment Bedside Commode BIPAP Glucometer Hospital Bed Rolling Walker Shower Chair * List name and contact numbers for known caregivers / representatives who currently or will assist patient after discharge: ELIDA () [phone] * Verbal permission to speak to the caregivers and representatives has been obtained from the patient. N/A * Community resources currently utilized Home Health * Please name any agencies selected above. [facility] * Additional services required to return to the preadmission environment? Yes * Can the patient safely return to the preadmission environment? No * Has this patient been hospitalized within the prior 30 days at any hospital? No Coverage Notice Reviewer: [id number] Pepe Lazo Notice Issued Date-Time: 08/29/2019 13:40 Notice Type: IM Discharge Notice Notice Delivered To: Patient Relationship to Patient: Tung Nut Grower Name: Delivery Method: HAND - Hand Delivered Mima Days: Prior Verbal Notification: Recipient Understood Notice: Yes Recipient Signature: Yes Med Rec Note Co-signed by Attending: Coverage Notice Comment: imm served Reviewer: [email or web address] Pepe Lazo Notice Issued Date-Time: 08/29/2019 13:40 Notice Type: Patient Choice Letter Notice Delivered To: Patient Relationship to Patient: Tung Nut Grower Name: Delivery Method: HAND - Hand Delivered Mima Days: Prior Verbal Notification: Recipient Understood Notice: Yes Recipient Signature: Yes Med Rec Note Co-signed by Attending: Coverage Notice Comment: demarco with inpatient rehab [facility] Last DP export: 08/30/19 2:37 p Patient Name: FRANCINE CERVANTES Page [phone] at 0907 All edits/amendments must be made on the electronic document DICTATION DATE: 08/31/19 09 ENGRAVING PRESS OPERATOR: JACKELIN 08/31/19 0907 RPT#: [id number] DC DATE:08/30/19 STATUS: DIS IN [facility] [address] [place] [address] END OF REPORT
--- NOTE | 2019-08-31 15:37 | MORECARE ---
CASE MANAGEMENT DISCHARGE SUMMARY PATIENT: FRANCINE CERVANTES UNIT: [id number] ADM DATE: 08/24/19 AGE: 54 : 61 SEX: M ROOM/BED: D.2219 AUTHOR: SHERWINDOC PHYSICIAN: REFERRING PHYSICIAN: HANK ALEJANDRE DO DATE OF SERVICE: 08/31/19 Discharge Plan Patient Name: FRANCINE CERVANTES Facility: [facility]:[place] : 1965 Planned Disposition: Inpatient Rehab Anticipated Discharge Date: 08/30/19 Discharge Date: 08/30/2019 Expected LOS: 6 Initial Reviewer: [id number] Initial Review Date: 08/24/2019 Generated: 08/31/19 4:36 pm Comments DCP- Discharge Planning Updated by [id number]: Awa Lazo on 08/30/19 2:[address] Patient has been accepting to inpatient rehab at [facility] & will be discharged today DCP- Discharge Planning Updated by [id number]: Awa Lazo on 08/29/19 1:[address] Patient Name: FRANCINE CERVANTES Admission Status: Elective Accout number: [id number] Admission Date: 08-24-2019 : 1965 Admission Diagnosis:CELLULITIS OF RIGHT LOWER LIMB Attending: HANK ALEJANDRE Current LOS: 5 Anticipated DC Date: Planned Disposition: Inpatient Rehab Primary Insurance: [facility] Discharge Planning Comments: CM met with patient to complete initial dc planning assessment. CM educated patient on the CM role and verbal consent given by patient to complete assessment. Patient lives at home with his spouse where he is partially independent with his care. At discharge patient plans to go to inpatient rehab at [facility] and feels this is a safe discharge. CM discussed availability of home health, rehab services, and medical equipment. He is current with [facility]. He has a Hospital bed, bipap, cane, glucometer, shower chair, and a rollator (that is at [facility]) DEMARCO has been signed for inpatient rehab at [facility], [facility] (bipap) [facility] ([facility]) . IMM served and explained. Patient denied known discharge needs at this time. CM will continue to follow and will assist as needed with dc plans/needs. Inspector Poising: Awa Lazo DCPIA - Discharge Planning Initial Assessment Updated by [id number]: Awa Lazo on 08/29/19 2:17 pm * Is the patient Alert and Oriented? Yes * How many steps to enter\exit or inside your home? * PCP [facility] * Pharmacy [facility] [address] * Preadmission Environment Home with Family * ADLs Partial Dependent * Partial ADLs (Assistance needed) Ambulation Dressing * Equipment Bedside Commode BIPAP Glucometer Hospital Bed Rolling Walker Shower Chair * List name and contact numbers for known caregivers / representatives who currently or will assist patient after discharge: ELIDA () [phone] * Verbal permission to speak to the caregivers and representatives has been obtained from the patient. N/A * Community resources currently utilized Home Health * Please name any agencies selected above. [facility] * Additional services required to return to the preadmission environment? Yes * Can the patient safely return to the preadmission environment? No * Has this patient been hospitalized within the prior 30 days at any hospital? No Coverage Notice Reviewer: [id number] Pepe Lazo Notice Issued Date-Time: 08/29/2019 13:40 Notice Type: IM Discharge Notice Notice Delivered To: Patient Relationship to Patient: Inspector Raw Quartz Name: Delivery Method: HAND - Hand Delivered Mima Days: Prior Verbal Notification: Recipient Understood Notice: Yes Recipient Signature: Yes Med Rec Note Co-signed by Attending: Coverage Notice Comment: imm served Reviewer: [id number] Pepe Lazo Notice Issued Date-Time: 08/29/2019 13:40 Notice Type: Patient Choice Letter Notice Delivered To: Patient Relationship to Patient: Inspector Raw Quartz Name: Delivery Method: HAND - Hand Delivered Mima Days: Prior Verbal Notification: Recipient Understood Notice: Yes Recipient Signature: Yes Med Rec Note Co-signed by Attending: Coverage Notice Comment: demarco with inpatient rehab [facility] care Last DP export: 08/31/19 8:07 a Patient Name: FRANCINE CERVANTES Page [phone] at 1537 All edits/amendments must be made on the electronic document DICTATION DATE: 08/31/19 1536 PEARL RESTORER: JACKELIN 08/31/19 1536 RPT#: [id number] DC DATE:08/30/19 STATUS: DIS IN [facility] [address] [place] [address] END OF REPORT
== END 2019-08-30 18:19 | DRG 603 ==
LOC: D.MS 12:25
PROVIDERS: Internal Medicine Nephrology; ADMIT Family Medicine; ATTEND Family Medicine
DX: L03.115 Cellulitis of right lower limb (principal); N17.9 Acute kidney failure, unspecified; E87.1 Hypo-osmolality and hyponatremia; Z68.43 Body mass index [BMI] 50.0-59.9, adult; I83.90 Asymptomatic varicose veins of unspecified lower extremity; I73.9 Peripheral vascular disease, unspecified; D64.9 Anemia, unspecified; K21.9 Gastro-esophageal reflux disease without esophagitis; E11.51 Type 2 diabetes mellitus with diabetic peripheral angiopathy without gangrene; E66.01 Morbid (severe) obesity due to excess calories; I10 Essential (primary) hypertension; E11.42 Type 2 diabetes mellitus with diabetic polyneuropathy; J45.909 Unspecified asthma, uncomplicated; G89.29 Other chronic pain; G47.33 Obstructive sleep apnea (adult) (pediatric); M19.90 Unspecified osteoarthritis, unspecified site

== ENCOUNTER 2019-08-30 18:44 | Inpatient (IN) | payer MEDICARE ==
[~2019-08-30] VITALS: Ht 175.3 cm; Wt 169.6 kg
[~2019-08-30 18:44] MED LIST changes: +ROCEPHIN 1 GM/D51 G1 IVPB; +Unna-Flex TOPICAL; +VANCOMYCIN 1 GM/1 G1 IV
[2019-08-31 14:09] VITALS: Ht 175.3 cm; Wt 169.6 kg
[2019-09-07 08:00] VITALS: BP 122/61
== END 2019-09-07 14:21 | disposition home or self-care (01) | DRG 558 ==
LOC: D.REHAB 18:44
PROVIDERS: ADMIT Emergency Medicine; ATTEND Emergency Medicine
DX: M62.50 Muscle wasting and atrophy, not elsewhere classified, unspecified site (principal); L03.90 Cellulitis, unspecified; L02.214 Cutaneous abscess of groin; N17.9 Acute kidney failure, unspecified; R53.1 Weakness; E66.01 Morbid (severe) obesity due to excess calories; I10 Essential (primary) hypertension; I83.90 Asymptomatic varicose veins of unspecified lower extremity; E11.9 Type 2 diabetes mellitus without complications; G62.9 Polyneuropathy, unspecified; G47.33 Obstructive sleep apnea (adult) (pediatric); K64.9 Unspecified hemorrhoids; R07.89 Other chest pain; Z86.718 Personal history of other venous thrombosis and embolism; Z86.711 Personal history of pulmonary embolism; G25.81 Restless legs syndrome; K21.9 Gastro-esophageal reflux disease without esophagitis

== ENCOUNTER 2019-12-23 17:48 | Emergency (ER) | payer OTHER ==
[~2019-12-23] VITALS: Ht 175.3 cm; Wt 202.3 kg
[2019-12-23 17:51] VITALS: Ht 175.3 cm; Wt 202.3 kg
[2019-12-23] MEDS ORDERED: ZOSTRIX HP 0.0730 GM TOPICAL (20:31)
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
[2019-12-23 21:30] VITALS: BP 165/85
== END 2019-12-23 21:30 | disposition home or self-care (01) ==
LOC: D.ER 17:48
DX: M17.12 Unilateral primary osteoarthritis, left knee (principal); M16.12 Unilateral primary osteoarthritis, left hip; R52 Pain, unspecified; F32.9 Major depressive disorder, single episode, unspecified; E11.9 Type 2 diabetes mellitus without complications; I20.9 Angina pectoris, unspecified; J45.909 Unspecified asthma, uncomplicated; K21.9 Gastro-esophageal reflux disease without esophagitis

== ENCOUNTER 2020-05-28 11:39 | Inpatient (IN) | payer MEDICARE, OTHER ==
[~2020-05-28] VITALS: Ht 175.3 cm; Wt 168.3 kg
[~2020-05-28 11:39] MED LIST changes: +MOVANTIK25 MG; +PERCOCET 5-3251 TAB PO; +VYVANSE40 MG; +ZOSTRIX HP 0.0730 GM TOPICAL
[2020-05-28 13:14] VITALS: BP 131/74
[2020-05-28 14:18] LABS: ALBUMIN 3.1 g/dL (3.4-5.0); ANION GAP 14.7 mmol/L (8-16); BILIRUBIN - TOTAL 0.58 mg/dL (0.2-1.3); CALCIUM 8.5 mg/dL (8.5-10.1); CREATININE - SERUM 1.3 mg/dL (0.6-1.3); MAGNESIUM - SERUM 1.7 mg/dL (1.8-2.4); POTASSIUM - SERUM 3.7 mmol/L (3.5-5.1); PROTEIN - SERUM 6.4 g/dL (6.4-8.2)
[2020-05-28 14:23] LABS: INR 1.25 (0.85-1.17); PROTIME 14.5 SECONDS (11.6-15.0)
[2020-05-28 14:40] VITALS: BP 131/74; BMI 56.2
[2020-05-28 15:17] LABS: BASOPHILS 0.2 % (0-2); EOSINOPHILS 1.1 % (0-7); HEMATOCRIT 48.1 % (42.0-54.0); IMMATURE GRANULOCYTES 0.8 % (0-5); LYMPHOCYTE ABS# 1.41 10x3/uL (1.32-3.57); LYMPHOCYTES 14.5 % (15-50); MCH 26.8 pg (26.0-34.0); MCHC 33.3 g/dL (31.0-37.0); MCV 80.7 fL (80.0-100.0); NEUTROPHIL ABS# 7.11 10x3/uL (1.78-5.38); NEUTROPHILS 73.4 % (40-80); PLATELET COUNT 161 10x3/uL (130-400); RBC 5.96 10x6/uL (4.20-6.10); WBC 9.7 10x3/uL (4.8-10.8)
[2020-05-28 18:05] VITALS: BP 138/68
[2020-05-28 20:44] VITALS: BP 123/67
[2020-05-28 21:23] LABS: BILIRUBIN NEGATIVE (NEGATIVE); KETONE NEGATIVE (NEGATIVE); NITRITE NEGATIVE (NEGATIVE); UROBILINOGEN NORMAL mg/dL (< 2); WHITE CELLS - URINE 0-5 HPF (0-1)
[2020-05-28 21:24] LABS: BACTERIA FEW HPF (NONE SEEN)
[2020-05-29] VITALS (9 sets, daily range): BP systolic 105–148; BP diastolic 58–85
[2020-05-29 07:32] LABS: ALBUMIN 2.8 g/dL (3.4-5.0); ANION GAP 12.1 mmol/L (8-16); BILIRUBIN - TOTAL 0.86 mg/dL (0.2-1.3); CALCIUM 8.4 mg/dL (8.5-10.1); CARBON DIOXIDE 24.5 mmol/L (21.0-32.0); CREATININE - SERUM 1.2 mg/dL (0.6-1.3); MAGNESIUM - SERUM 1.8 mg/dL (1.8-2.4); POTASSIUM - SERUM 3.6 mmol/L (3.5-5.1)
--- NOTE | 2020-05-29 07:50 | NUR ---
NOTIFIED CLYDE HAWLEY THAT PATIENT IS ON ELIQUIS FOR HX OF PE.
[2020-05-29 08:01] LABS: BASOPHILS 0.5 % (0-2); EOSINOPHILS 1.7 % (0-7); HEMATOCRIT 46.3 % (42.0-54.0); HEMOGLOBIN 15.3 g/dL (13.5-17.5); IMMATURE GRANULOCYTES 1.2 % (0-5); LYMPHOCYTE ABS# 1.24 10x3/uL (1.32-3.57); LYMPHOCYTES 18.7 % (15-50); MCH 26.8 pg (26.0-34.0); MCV 81.1 fL (80.0-100.0); MONOCYTES 10.8 % (2-11); NEUTROPHIL ABS# 4.46 10x3/uL (1.78-5.38); NEUTROPHILS 67.1 % (40-80); PLATELET COUNT 133 10x3/uL (130-400); RBC 5.71 10x6/uL (4.20-6.10)
[2020-05-29 08:02] LABS: WBC 6.6 10x3/uL (4.8-10.8)
--- NOTE | 2020-05-29 09:00 | NUR ---
ALERT AND ORIENTED. ASSESSMENT COMPLETE. BED LOW. CALL GUERRERO AND PERSONAL ITEMS IN REACH. WILL CONTINUE TO MONITOR.
--- NOTE | 2020-05-29 09:12 | NUR ---
PER CLYDE HAWLEY, HOLD AM MEDICATIONS UNTIL AFTER PROCEDURE.
--- NOTE | 2020-05-29 09:55 | NUR ---
PATIENT STATES WANTS TO TALK TO CLYDE HAWLEY PRIOR TO SIGNING CONSENTS. APPRENTICESHIP CONSULTANT AWARE PATIENT WANTS TO SEE HER AND STATES WILL COME.
--- NOTE | 2020-05-29 12:30 | NUR ---
PATIENT TAKEN FOR PROCEDURE. CONSENTS AND EKG ON CHART. NURSE WAS NOT CALLED TO PREOP. NO PREOP ORDERS IN. TRANSPORT STATES WILL NOTIFY SURGERY STAFF THAT PATIENT DID NOT HAVE PREOP MEDS.
--- NOTE | 2020-05-29 14:11 | NUR ---
PATIENT RETURNED FROM PROCEDURE. VITALS STABLE. DRSG TO RIGHT TESTICLE C/D/I. REQUESTED AND GIVEN PRN PAIN MEDICATION. DENIES FURTHER NEEDS AT THIS TIME. WILL CONTINUE TO MONITOR.
--- NOTE | 2020-05-29 22:36 | NUR ---
REC'D WALKING ROUNDS CHGE OF SHIFT IN BED SCD'S ON. ABD DRSG TO SCROTUM DRY AND INTACT.FSBS 183.MANAGES OWN INSULIN AMT. HAS INSULIN PUMP WILL CONTINUE TO MONITOR FOR ANY CHGES AND FOLLOW CURRENT PLAN OF CARE.
[2020-05-30] VITALS: BP 129/72
[2020-05-30 05:18] VITALS: BP 121/68
--- NOTE | 2020-05-30 05:54 | NUR ---
I have reviewed this patient and I concur with the Shift Assessment completed by the Licensed Practical Nurse today this shift.
[2020-05-30 07:10] LABS: ANION GAP 12.4 mmol/L (8-16); BILIRUBIN - TOTAL 0.55 mg/dL (0.2-1.3); CALCIUM 8.6 mg/dL (8.5-10.1); CARBON DIOXIDE 26.1 mmol/L (21.0-32.0); CREATININE - SERUM 1.2 mg/dL (0.6-1.3); POTASSIUM - SERUM 3.5 mmol/L (3.5-5.1); PROTEIN - SERUM 6.5 g/dL (6.4-8.2)
[2020-05-30 07:17] LABS: BASOPHILS 0.7 % (0-2); HEMOGLOBIN 16.1 g/dL (13.5-17.5); IMMATURE GRANULOCYTES 2.2 % (0-5); LYMPHOCYTE ABS# 1.56 10x3/uL (1.32-3.57); LYMPHOCYTES 26.1 % (15-50); MCH 26.7 pg (26.0-34.0); MCHC 32.9 g/dL (31.0-37.0); MCV 81.4 fL (80.0-100.0); MONOCYTES 9.9 % (2-11); NEUTROPHIL ABS# 3.53 10x3/uL (1.78-5.38); NEUTROPHILS 59.1 % (40-80); RBC 6.02 10x6/uL (4.20-6.10); RDW 18.8 % (11.5-14.5)
[2020-05-30 07:25] LABS: PLATELET COUNT 181 10x3/uL (130-400)
--- NOTE | 2020-05-30 07:29 | NUR ---
ALERT AND ORIENTED. ASSESSMENT COMPLETE. DENIES NEEDS. BED LOW. CALL GUERRERO AND PERSONAL ITEMS IN REACH. WILL CONTINUE TO MONITOR.
[2020-05-30 08:25] VITALS: BP 130/76
[2020-05-30 11:48] VITALS: BP 137/70
[2020-05-30 12:47] VITALS: Ht 175.3 cm; Wt 168.3 kg
--- NOTE | 2020-05-30 13:07 | OP ---
PATIENT NAME: FRANCINE CERVANTES MEDICAL RECORD: [id number] :61 LOCATION:D D.2223 ADMISSION DATE:05/29/20 SURGEON: RUBÉN ADAM MD DATE OF OPERATION: 05/29/2020 PREOPERATIVE DIAGNOSES: 1. Right scrotal abscess. 2. Diabetes mellitus. 3. Morbid obesity. POSTOPERATIVE DIAGNOSES: 1. Right scrotal abscess. 2. Diabetes mellitus. 3. Morbid obesity. PROCEDURE: I&D of right scrotal abscess. SURGEON: Rubén Adam MD REPORT OF PROCEDURE: The patient's scrotal region was prepped and draped in sterile fashion. On the lateral aspect of the right scrotum, there is an area of necrotic tissue. A longitudinal incision was made through this revealing purulent material. Cultures were taken times 2. I then pushed through the underlying tissues and freed up the entire cavity. We then irrigated out the wound bed with peroxide and saline solution and then performed the debridement of any of the necrotic tissue that was present. The wound was then packed with a Kerlix soaked in peroxide and covered with 4 x 4s and an ABD pad. COMPLICATIONS: None. CONDITION: Stable. ANESTHESIA: General endotracheal. BLOOD LOSS: Minimal. TRANSINT:[id number] Voice Confirmation ID: [id number] DOCUMENT ID: [id number] RUBÉN ADAM MD at 1307 CC: [email or web address] FRANCINE GE [phone] DICTATION DATE: 05/29/20 1313 CHOIR DIRECTOR: 05/29/20 2203 ADM IN [place] [id number] [place] [address]
--- NOTE | 2020-05-30 13:32 | NUR ---
WENT TO PACK PATIENT WOUND, PATIENT REQUESTED TO FINISH LUNCH FIRST AND HAVE PRN PAIN MEDICATIONS BEFORE PACKING
--- NOTE | 2020-05-30 14:09 | NUR ---
DRSG CHANGED PER ORDER.
--- NOTE | 2020-05-30 14:28 | NUR ---
PACKED PATIENT RT SCROTUM WITH 1/2 INCH PACKING STRIP. WET TO DRY. PATIENT TOLERATED WELL. CONTINUE WITH PLAN OF CARE
[2020-05-30 15:58] VITALS: BP 118/51
[2020-05-30 20:00] VITALS: BP 94/34
[2020-05-31] VITALS: BP 150/69
[2020-05-31 04:00] VITALS: BP 138/62
[2020-05-31 06:18] LABS: ANION GAP 10.2 mmol/L (8-16); BILIRUBIN - TOTAL 0.51 mg/dL (0.2-1.3); CALCIUM 8.7 mg/dL (8.5-10.1); CARBON DIOXIDE 27.9 mmol/L (21.0-32.0); PROTEIN - SERUM 6.5 g/dL (6.4-8.2)
[2020-05-31 06:39] LABS: CREATININE - SERUM 1.7 mg/dL (0.6-1.3); POTASSIUM - SERUM 4.1 mmol/L (3.5-5.1)
[2020-05-31 06:48] LABS: BASOPHILS 0.5 % (0-2); HEMATOCRIT 48.1 % (42.0-54.0); HEMOGLOBIN 15.8 g/dL (13.5-17.5); IMMATURE GRANULOCYTES 2.6 % (0-5); LYMPHOCYTE ABS# 1.42 10x3/uL (1.32-3.57); MCH 26.7 pg (26.0-34.0); MCHC 32.8 g/dL (31.0-37.0); MCV 81.4 fL (80.0-100.0); MONOCYTES 12.3 % (2-11); NEUTROPHILS 56.6 % (40-80); PLATELET COUNT 171 10x3/uL (130-400); RBC 5.91 10x6/uL (4.20-6.10); RDW 18.6 % (11.5-14.5); WBC 5.7 10x3/uL (4.8-10.8)
--- NOTE | 2020-05-31 07:21 | NUR ---
PATIENT CONTINUES IV ABX FOR SCROTAL ABCESS. REPORTS SUFFICIENT PAIN RELIEF WITH FENTANYL PATCHES. ADMINISTERED INSULIN VIA PUMP.
[2020-05-31 08:33] VITALS: BP 109/68
[2020-05-31] MEDS ORDERED: HYDROCODON-ACE1 EA10 PO (12:00)
[2020-05-31 12:30] VITALS: BP 107/71
[2020-05-31] MEDS ORDERED: LEVAQUIN750 MG PO (13:43)
[2020-05-31 16:52] VITALS: BP 98/52
[2020-05-31 20:16] VITALS: BP 136/71
[2020-06-01] VITALS (7 sets, daily range): BP systolic 106–145; BP diastolic 56–83
--- NOTE | 2020-06-01 00:30 | NUR ---
PT WAS RESTING IN BED. PT WAS IN NO PAIN AT THE TIME. PT DID CHANGE INSULIN PUMP. BED IN LOW POSITION WITH CALL GUERRERO LIGHT IN REACH.
[2020-06-01 06:01] LABS: BASOPHILS 0.5 % (0-2); EOSINOPHILS 3.7 % (0-7); HEMOGLOBIN 15.3 g/dL (13.5-17.5); LYMPHOCYTE ABS# 1.59 10x3/uL (1.32-3.57); LYMPHOCYTES 27.7 % (15-50); MCH 26.6 pg (26.0-34.0); MCHC 32.6 g/dL (31.0-37.0); MCV 81.7 fL (80.0-100.0); MONOCYTES 13.2 % (2-11); NEUTROPHIL ABS# 2.99 10x3/uL (1.78-5.38); NEUTROPHILS 51.9 % (40-80); PLATELET COUNT 169 10x3/uL (130-400); RBC 5.75 10x6/uL (4.20-6.10); RDW 18.3 % (11.5-14.5); WBC 5.8 10x3/uL (4.8-10.8)
--- NOTE | 2020-06-01 06:27 | NUR ---
PT RESTED THROUGHOUT SHIFT. DRESSING CHANGE WAS NOT DONE. PT REFUSED DRESSING CHANGE DUE TO NO MORPHINE ORDER. DID RECEIVE AN ORDER OF DEMEROL BUT PATIENT DID NOT WANT THAT. NO OTHER COMPLAINTS. CALL GUERRERO IN REACH AND BED IN LOWEST POSITION.
[2020-06-01 07:43] LABS: ALBUMIN 2.9 g/dL (3.4-5.0); ANION GAP 12.3 mmol/L (8-16); BILIRUBIN - TOTAL 0.41 mg/dL (0.2-1.3); CALCIUM 8.7 mg/dL (8.5-10.1); CARBON DIOXIDE 26.2 mmol/L (21.0-32.0); CREATININE - SERUM 1.4 mg/dL (0.6-1.3); MAGNESIUM - SERUM 2.2 mg/dL (1.8-2.4); POTASSIUM - SERUM 4.5 mmol/L (3.5-5.1); PROTEIN - SERUM 6.3 g/dL (6.4-8.2)
--- NOTE | 2020-06-01 11:26 | NUR ---
SCROTAL INCISION PACKED WITH MOIST STRIP GAUZE PER MD ORDER. PT TOLERATED PROCEDURE WELL. WILL CONTINUE TO MONITOR.
--- NOTE | 2020-06-01 19:00 | NUR ---
BEDSIDE REPORT RECEIVED AND CARE OF PT ASSUMED. PT LYING IN LOW BROWNING'S POSITION WATCHING MOVIE ON HIS LAPTOP. IV TO LEFT AC PATENT WITH NS INFUSING AT KVO. PACKING INTACT IN INCISION ON RIGHT TESTICAL. WILL MONITOR FOR NEEDS.
--- NOTE | 2020-06-01 20:00 | NUR ---
ASSISTED PT TO USE BEDPAN FOR BM. POSITIONED FOR COMFORT.
--- NOTE | 2020-06-01 21:09 | NUR ---
HS MEDICATIONS GIVEN. FSBS 250 AND PT TREATED WITH HIS OWN INSULIN PUMP.
--- NOTE | 2020-06-01 21:15 | NUR ---
GAVE HS SNACK OF TURKEY SANDWICH TRAY, GIAN CRACKERS, AND 2% MILK. WILL CONTINUE TO MONITOR FOR NEEDS.
--- NOTE | 2020-06-01 21:45 | NUR ---
PLACED EGG CRATE MATTRESS PAD ON BED PER PT REQUEST TO PREVENT SKIN BREAKDOWN. POSITIONED PT FOR COMFORT.
[2020-06-02 01:25] VITALS: BP 106/39
[2020-06-02 05:47] VITALS: BP 97/54
[2020-06-02 05:56] LABS: BASOPHILS 0.7 % (0-2); HEMATOCRIT 44.6 % (42.0-54.0); HEMOGLOBIN 14.5 g/dL (13.5-17.5); IMMATURE GRANULOCYTES 3.1 % (0-5); MCH 26.6 pg (26.0-34.0); MCHC 32.5 g/dL (31.0-37.0); MCV 81.7 fL (80.0-100.0); MEAN PLATELET VOLUME 11.5 fL (7.4-10.4); MONOCYTES 11.2 % (2-11); NEUTROPHIL ABS# 3.01 10x3/uL (1.78-5.38); PLATELET COUNT 161 10x3/uL (130-400); RBC 5.46 10x6/uL (4.20-6.10); RDW 17.9 % (11.5-14.5); WBC 5.6 10x3/uL (4.8-10.8)
[2020-06-02 07:29] LABS: ALBUMIN 2.5 g/dL (3.4-5.0); ANION GAP 9.6 mmol/L (8-16); BILIRUBIN - TOTAL 0.3 mg/dL (0.2-1.3); CALCIUM 8.6 mg/dL (8.5-10.1); CREATININE - SERUM 1.9 mg/dL (0.6-1.3); MAGNESIUM - SERUM 1.9 mg/dL (1.8-2.4); POTASSIUM - SERUM 4.6 mmol/L (3.5-5.1); PROTEIN - SERUM 5.6 g/dL (6.4-8.2)
[2020-06-02 09:04] VITALS: BP 134/72
--- NOTE | 2020-06-02 10:28 | NUR ---
PT AGREED TO PARTICIPATE IN PHYSICAL THERAPY AFTER DRESSING CHANGES WHILE MORPHINE IS STILL ON BOARD
--- NOTE | 2020-06-02 12:27 | NUR ---
rehab prescreen: thank you for this eval, curently pt has not had any therapy so unable to deturmine for a rehab need. did see that pt agreed to do therapy but had not been evaled at this time. Also the pt has [facility] insurance and will require a prior auth. before able to transfer, will follow up with pt progress and insurance deturmination soon. once again thank you for this eval. vanessa gregory lpn clinical liasion
[2020-06-02 12:43] VITALS: BP 143/68
--- NOTE | 2020-06-02 19:00 | NUR ---
BEDSIDE REPORT RECEIVED AND CARE OF PT ASSUMED. PT LYING IN LOW BROWNING'S POSITION WITH EYES CLOSED. IV TO LEFT AC SALINE LOCKED. WILL MONITOR FOR NEEDS.
[2020-06-02 20:00] VITALS: BP 170/95
--- NOTE | 2020-06-02 21:44 | NUR ---
HS MEDICATIONS GIVEN. FSBS 380 THIS CHECK...PT COVERED WITH HIS INSULIN PUMP.
--- NOTE | 2020-06-02 22:00 | NUR ---
GAVE X2 VANILLA PUDDINGS FOR HS SNACK/
--- NOTE | 2020-06-02 22:28 | NUR ---
GAVE MORPHINE 4 MG IVP PRE MED FOR CHANGING PACKING IN SCROTUM INCISION.
--- NOTE | 2020-06-02 23:00 | NUR ---
PT BATHED AND ALL LINENS AND GOWN CHANGED. APPLIED [place]STATIN POWDER TO ALL CREASES. CHANGED PACKING IN INCISION OF SCROTUM USING 8 INCHES OF 1/2" PACKING.
[2020-06-03] VITALS: BP 124/68
[2020-06-03 04:00] VITALS: BP 121/589
[2020-06-03 07:18] LABS: ANION GAP 7.4 mmol/L (8-16); CALCIUM 9.5 mg/dL (8.5-10.1); CARBON DIOXIDE 31.4 mmol/L (21.0-32.0); CREATININE - SERUM 1.1 mg/dL (0.6-1.3); POTASSIUM - SERUM 3.8 mmol/L (3.5-5.1)
[2020-06-03 08:00] VITALS: BP 152/86
--- NOTE | 2020-06-03 08:00 | NUR ---
PATIENT IN BED WITH IV INTACT. NO COMPLAINTS OR SIGNS OF DISTRESS. CALL LIGHT WITHIN REACH.
[2020-06-03 08:02] LABS: BASOPHILS 0.7 % (0-2); HEMATOCRIT 50.3 % (42.0-54.0); HEMOGLOBIN 16.8 g/dL (13.5-17.5); IMMATURE GRANULOCYTES 3.8 % (0-5); MCH 27.2 pg (26.0-34.0); MCHC 33.4 g/dL (31.0-37.0); MCV 81.4 fL (80.0-100.0); NEUTROPHIL ABS# 2.99 10x3/uL (1.78-5.38); NEUTROPHILS 53.5 % (40-80); PLATELET COUNT 172 10x3/uL (130-400); RBC 6.18 10x6/uL (4.20-6.10); RDW 17.6 % (11.5-14.5); WBC 5.6 10x3/uL (4.8-10.8)
[2020-06-03 12:00] VITALS: BP 128/78
--- NOTE | 2020-06-03 14:29 | NUR ---
PATIENT AMBULATED WITH PT AT THIS TIME. RECIEVED MORPHINE 4 MG IVP OVER 4 MINUTES BEFORE AMBULATING.
[2020-06-03 15:00] VITALS: BP 135/75
--- NOTE | 2020-06-03 16:38 | MORECARE ---
CASE MANAGEMENT DISCHARGE SUMMARY PATIENT: FRANCINE CERVANTES UNIT: [id number] ADM DATE: 05/29/20 AGE: 54 : 61 SEX: M ROOM/BED: D.2223 AUTHOR: MARIAMA COURTNEY PHYSICIAN: REFERRING PHYSICIAN: HANK ALEJANDRE DO DATE OF SERVICE: 06/03/20 Discharge Plan Patient Name: FRANCINE CERVANTES Facility: [facility]:[place] : 1965 Planned Disposition: Anticipated Discharge Date: Discharge Date: Expected LOS: Initial Reviewer: [id number] Initial Review Date: 05/28/2020 Generated: 06/03/20 5:38 pm Comments DCP- Discharge Planning Updated by [id number]: Elizabeth Miranda on 06/03/20 3:[address] Patient Name: FRANCINE CERVANTES Admission Status: Elective Accout number: [id number] Admission Date: 05-29-2020 : 1965 Admission Diagnosis:INFLAMMATORY DISORDERS OF SCROTUM Attending: HANK ALEJANDRE Current LOS: 5 Anticipated DC Date: Planned Disposition: Primary Insurance: [facility] MEDICARE SOLUTIONS Discharge Planning Comments: CM MET WITH PATIENT VIA TELEPHONE AFTER OBTAINING VERBAL CONSENT. DISCUSSED AVAILABILITY/NEEDS OF HOME HEALTH, REHAB, AND MEDICAL EQUIPMENT. PATIENT STATES WOULD BENEFIT BY GOING TO REHAB HERE AT [facility] IF INSURANCE WILL APPROVE. SECOND CHOICE IS [facility] FOR SNF. I HAVE NOTIFIED LORE WITH [facility] THAT WE HAVE ORDER OT, PT AND REHAB SCREEN. CM TO FOLLOW AND ASSIST NEEDED. Probation Counselor: Elizabeth Miranda DCPIA - Discharge Planning Initial Assessment Updated by [email or web address]: Elizabeth Miranda on 06/03/20 4:35 pm * Is the patient Alert and Oriented? Yes * PCP [facility] * Pharmacy [facility] * Preadmission Environment Home with Family * ADLs Independent * Other Equipment BIPAP * List name and contact numbers for known caregivers / representatives who currently or will assist patient after discharge: LORA MARRERO, * Community resources currently utilized None * Additional services required to return to the preadmission environment? Yes * Can the patient safely return to the preadmission environment? Yes * Has this patient been hospitalized within the prior 30 days at any hospital? No Coverage Notice Reviewer: [id number] Pepe Miranda Notice Issued Date-Time: 05/28/2020 17:20 Notice Type: Medicare Outpatient Observation Notice Notice Delivered To: Relationship to Patient: Acoustical Engineer Name: Delivery Method: - Mima Days: Prior Verbal Notification: Recipient Understood Notice: Recipient Signature: Med Rec Note Co-signed by Attending: Coverage Notice Comment: Patient Name: FRANCINE CERVANTES Page [phone] at 1638 All edits/amendments must be made on the electronic document DICTATION DATE: 06/03/20 1638 BELLY DUMP DRIVER: JACKELIN 06/03/20 1638 RPT#: [id number] DC DATE: STATUS: ADM IN [facility] [address] [place] [address] END OF REPORT
--- NOTE | 2020-06-03 17:47 | NUR ---
PATIENT SITTING UP IN BED WITH IV INTACT. NO COMPLAINTS OR SIGNS OF DISTRESS. CALL LIGHT WITHIN REACH.
--- NOTE | 2020-06-03 19:00 | NUR ---
BEDSIDE REPORT RECEIVED AND CARE OF PT ASSUMED. PT LYING IN HIGH BROWNING'S POSITION WITH EYES CLOSED AND CPAP IN USE. IV TO LEFT AC SALINE LOCKED. WILL MONITOR FOR NEEDS.
[2020-06-03 20:00] VITALS: BP 123/63
--- NOTE | 2020-06-03 21:22 | NUR ---
HS MEDICATIONS GIVEN. FSBS 237 THIS CHECK REQUIRING COVERAGE WITH PT'S OWN INSULIN PUMP. WILL CONTINUE TO MONITOR FOR NEEDS.
[2020-06-04] VITALS: BP 103/54
[2020-06-04 04:00] VITALS: BP 106/56
[2020-06-04 06:09] LABS: ANION GAP 10.7 mmol/L (8-16); CALCIUM 8.8 mg/dL (8.5-10.1); CARBON DIOXIDE 29.9 mmol/L (21.0-32.0); CREATININE - SERUM 1.3 mg/dL (0.6-1.3); POTASSIUM - SERUM 3.6 mmol/L (3.5-5.1)
[2020-06-04 07:06] LABS: BASOPHILS 0.5 % (0-2); EOSINOPHILS 4.1 % (0-7); HEMATOCRIT 47.1 % (42.0-54.0); HEMOGLOBIN 15.6 g/dL (13.5-17.5); IMMATURE GRANULOCYTES 2.8 % (0-5); LYMPHOCYTE ABS# 1.64 10x3/uL (1.32-3.57); LYMPHOCYTES 21.8 % (15-50); MCHC 33.1 g/dL (31.0-37.0); MCV 81.5 fL (80.0-100.0); MONOCYTES 11.8 % (2-11); NEUTROPHIL ABS# 4.43 10x3/uL (1.78-5.38); PLATELET COUNT 181 10x3/uL (130-400); RBC 5.78 10x6/uL (4.20-6.10); RDW 17.9 % (11.5-14.5)
[2020-06-04 07:07] LABS: WBC 7.5 10x3/uL (4.8-10.8)
[2020-06-04 10:27] VITALS: BP 151/72
[2020-06-04 13:58] VITALS: BP 141/77
[2020-06-04 14:53] LABS: SARS-CoV-2 ANTIGEN NEGATIVE- SARS-COV-2 (NEGATIVE)
--- NOTE | 2020-06-04 15:58 | NUR ---
REHAB PRESCREENING Preauthorization started with [facility]. Spoke with Riley with reference #[id number] If approved this patient will be responsible for $225/day of days 1-8. Then [facility] will cover 100%. Rehab will notify case management of [facility] decision to approve or deny as soon as possible. Thank you! Lamar Ramirez, DISTANCE LEARNING UNIT LEADER Rehab PD
[2020-06-04 18:31] VITALS: BP 154/64
--- NOTE | 2020-06-04 19:15 | NUR ---
NEW IV STARTED IN LEFT ARM X 1 STICK. GAVE PATIENT MORPHINE FOR DRESSING CHANGE AT THIS TIME. DRESSING TO RIGHT TESTICLE CHANGED AT THIS TIME. PACKING REMOVED AND WOUND CLEANED WITH SALINE. WOUND BED IS PINK WITH SMALL AMOUNT OF PINK DRAINAGE. REPACKED WITH 1/2 INCH PACKING AT THIS TIME ORDERED. PATIENT TOLERATED WITH SMALL AMOUNT OF PAIN. CALL LIGHT WITHIN REACH.
--- NOTE | 2020-06-04 19:20 | NUR ---
PT SITTING UP IN BED WITHOUT DISTRESS, AOX4. DRESSING CHANGE TO SCOTUM DONE AT THIS TIME. DENIES FURTHER NEEDS. CL IN REACH
[2020-06-04 20:00] VITALS: BP 133/82
--- NOTE | 2020-06-04 21:15 | NUR ---
PT TOOK HS MEDS AT THIS TIME. FSBS 288, USING INSULIN PUMP FOR COVERAGE. PT STATES HE GAVE HIMSELF 2 UNITS. PT DOES NOT WANT SLEEPING PILL AT THIS TIME. STATES HE WILL TAKE AT 2300 WITH MORPHINE SO HE CAN TAKE BATH AT THAT TIME. DENIES OTHER NEEDS AT THIS TIME
--- NOTE | 2020-06-04 23:00 | NUR ---
PT GIVEN MORPHINE AT THIS TIME FOR PAIN 08/12. PT THEN TOOK A SHOWER. PT ASSISTED BACK TO BED AND SCROTAL WOUND PACKING CHANGED AT THIS TIME.
[2020-06-05] VITALS: BP 137/86
[2020-06-05 04:00] VITALS: BP 102/72
[2020-06-05 07:42] LABS: ANION GAP 12.3 mmol/L (8-16); CALCIUM 8.4 mg/dL (8.5-10.1); CREATININE - SERUM 1.3 mg/dL (0.6-1.3)
[2020-06-05 07:43] LABS: POTASSIUM - SERUM 4.3 mmol/L (3.5-5.1)
--- NOTE | 2020-06-05 08:00 | NUR ---
ASSESSMENT PER FLOW SHEET. PATIENT IS WITHOUT DISTRESS.CALL LIGHT IN REACH
[2020-06-05 08:13] LABS: BASOPHILS 0.8 % (0-2); EOSINOPHILS 3.5 % (0-7); HEMOGLOBIN 15.1 g/dL (13.5-17.5); IMMATURE GRANULOCYTES 1.8 % (0-5); LYMPHOCYTES 27.9 % (15-50); MCH 26.9 pg (26.0-34.0); MCHC 32.8 g/dL (31.0-37.0); MCV 81.9 fL (80.0-100.0); MEAN PLATELET VOLUME 11.6 fL (7.4-10.4); MONOCYTES 9.5 % (2-11); NEUTROPHIL ABS# 4.46 10x3/uL (1.78-5.38); NEUTROPHILS 56.5 % (40-80); PLATELET COUNT 174 10x3/uL (130-400); RBC 5.62 10x6/uL (4.20-6.10); RDW 17.8 % (11.5-14.5); WBC 7.9 10x3/uL (4.8-10.8)
[2020-06-05 08:39] VITALS: BP 117/72
[2020-06-05 12:08] VITALS: BP 119/67
--- NOTE | 2020-06-05 15:45 | NUR ---
OT NOTE: PT COMPLETED SUPINE TO SIT WITH CGA. PT COMPLETED EOB SITTING BALANCE WITH SBA. PT COMPLETED ADL MOB WITH SBA. PT COMPLETED HAIR HYGIENE WITH SETUP. PT COMPLETED HAIR GROOMING WITH SETUP. PT COMPLETED FACE AND HAND HYGIENE WITH SETUP. [phone] THANK YOU,CHAGO NEWSOME
[2020-06-05 16:48] VITALS: BP 134/65
[2020-06-05 20:00] VITALS: BP 154/81
--- NOTE | 2020-06-05 20:00 | NUR ---
PT SITTING UP IN BED WITHOUT DISTRESS, GAVE MORPHINE FOR PAIN 08/12. PT GOT UP TO SHOWER WITH ASSIST AND BACK TO BED. LINENS CHANGED. REMOVED OLD PACKING FROM RIGHT SIDE OF SCROTUM AND PUT NEW PACKING IN PER ORDERS. DENIES OTHER NEEDS. CL IN REACH
[2020-06-06 04:00] VITALS: BP 116/56
[2020-06-06 06:16] LABS: BASOPHILS 0.6 % (0-2); EOSINOPHILS 4.1 % (0-7); HEMATOCRIT 45.5 % (42.0-54.0); HEMOGLOBIN 15.1 g/dL (13.5-17.5); LYMPHOCYTE ABS# 1.73 10x3/uL (1.32-3.57); LYMPHOCYTES 26.3 % (15-50); MCH 27.1 pg (26.0-34.0); MCHC 33.2 g/dL (31.0-37.0); MCV 81.5 fL (80.0-100.0); MEAN PLATELET VOLUME 11.2 fL (7.4-10.4); MONOCYTES 5.6 % (2-11); NEUTROPHIL ABS# 4.03 10x3/uL (1.78-5.38); NEUTROPHILS 61.4 % (40-80); PLATELET COUNT 146 10x3/uL (130-400); RBC 5.58 10x6/uL (4.20-6.10); RDW 17.4 % (11.5-14.5); WBC 6.6 10x3/uL (4.8-10.8)
[2020-06-06 06:27] LABS: ANION GAP 7.6 mmol/L (8-16); CALCIUM 8.5 mg/dL (8.5-10.1); CARBON DIOXIDE 32.3 mmol/L (21.0-32.0); CREATININE - SERUM 1.5 mg/dL (0.6-1.3); POTASSIUM - SERUM 3.9 mmol/L (3.5-5.1)
[2020-06-06 08:42] VITALS: BP 123/67
--- NOTE | 2020-06-06 08:45 | NUR ---
ASSESSMENT PER FLOW SHEET. PATIENT IS WITHOUT DISTRESS.CALL LIGHT IN REACH. MONITOR FOR NEEDS.
--- NOTE | 2020-06-06 11:54 | NUR ---
HAS AMBULATED WITH PT. PATIENT IS WITHOUT DISTRESS.
[2020-06-06 12:24] VITALS: BP 154/85
--- NOTE | 2020-06-06 13:07 | NUR ---
REHAB PRESCREENING Received call from [facility] approving authorization for acute inpatient rehab. Auth #[id number] will be followed by [facility] Drafter Detail Carlos A ext. [phone] I will complete his screen and notify case management. He can come to rehab today if his physicians feel he is appropriate for discharge. Thank you for this referral! Lamar Ramirez, FIELD ACCOUNT DIRECTOR Rehab PD
[2020-06-06] MEDS ORDERED: HUMALOG 30100 UNITS/ SC (15:41)
[2020-06-06] MEDS ORDERED: NYSTATIN1 PWD TOPICAL (15:41)
[2020-06-06] MEDS ORDERED: BACLOFEN10 MG PO (15:41)
--- NOTE | 2020-06-06 15:45 | NUR ---
OT NOTE: PT COMPLETED SUPINE TO SIT WITH SBA. PT COMPLETED SIT TO STAND WITH CGA. PT COMPLETED BUE AROM WITH FUNCTIONAL TASKS WITH NO C/O PAIN. PT DID WELL. [phone] THANK YOU,CHAGO NEWSOME
--- NOTE | 2020-06-06 16:41 | NUR ---
REPORT TO GISSELLE ON REHAB.PATIENT WILL GO ROOM 9280
--- NOTE | 2020-06-06 18:09 | NUR ---
discharge instructions. iv dcd cath tip intact.
--- NOTE | 2020-06-06 18:10 | NUR ---
left unit via whelchair for transport to rehab
--- NOTE | 2020-06-06 18:23 | NUR ---
CALL TO ELIDA [phone]. INFORMED HER WENT TO ROOM 1110Y.
--- NOTE | 2020-06-07 10:04 | MORECARE ---
CASE MANAGEMENT DISCHARGE SUMMARY PATIENT: FRANCINE CERVANTES UNIT: [id number] ADM DATE: 05/29/20 AGE: 54 : 61 SEX: M ROOM/BED: D.2223 AUTHOR: SHERWINDOC PHYSICIAN: REFERRING PHYSICIAN: HANK ALEJANDRE DO DATE OF SERVICE: 06/07/20 Discharge Plan Patient Name: FRANCINE CERVANTES Facility: [facility]:[place] : 1965 Planned Disposition: Anticipated Discharge Date: Discharge Date: 06/06/2020 Expected LOS: Initial Reviewer: [id number] Initial Review Date: 05/28/2020 Generated: 06/07/20 11:03 am DCP- Discharge Planning Updated by [id number]: Elizabeth Miranda on 06/03/20 3:[address] Patient Name: FRANCINE CERVANTES Admission Status: Elective Accout number: [id number] Admission Date: 05-29-2020 : 1965 Admission Diagnosis:INFLAMMATORY DISORDERS OF SCROTUM Attending: HANK ALEJANDRE Current LOS: 5 Anticipated DC Date: Planned Disposition: Primary Insurance: [facility] MEDICARE SOLUTIONS Discharge Planning Comments: CM MET WITH PATIENT VIA TELEPHONE AFTER OBTAINING VERBAL CONSENT. DISCUSSED AVAILABILITY/NEEDS OF HOME HEALTH, REHAB, AND MEDICAL EQUIPMENT. PATIENT STATES WOULD BENEFIT BY GOING TO REHAB HERE AT [facility] IF INSURANCE WILL APPROVE. SECOND CHOICE IS [facility] FOR SNF. I HAVE NOTIFIED LORE WITH [facility] THAT WE HAVE ORDER OT, PT AND REHAB SCREEN. CM TO FOLLOW AND ASSIST NEEDED. Landscape Contractor: Elizabeth Miranda DCPIA - Discharge Planning Initial Assessment Updated by [email or web address]: Elizabeth Miranda on 06/03/20 4:35 pm * Is the patient Alert and Oriented? Yes * PCP [facility] * Pharmacy [facility] * Preadmission Environment Home with Family * ADLs Independent * Other Equipment BIPAP * List name and contact numbers for known caregivers / representatives who currently or will assist patient after discharge: ELIDA, LORA, * Community resources currently utilized None * Additional services required to return to the preadmission environment? Yes * Can the patient safely return to the preadmission environment? Yes * Has this patient been hospitalized within the prior 30 days at any hospital? No Coverage Notice Reviewer: [id number] Miranda Notice Issued Date-Time: 05/28/2020 17:20 Notice Type: Medicare Outpatient Observation Notice Notice Delivered To: Relationship to Patient: Final Operations Technician Name: Delivery Method: - Mima Days: Prior Verbal Notification: Recipient Understood Notice: Recipient Signature: Med Rec Note Co-signed by Attending: Coverage Notice Comment: Reviewer: [id number] Miranda Notice Issued Date-Time: 06/06/2020 16:50 Notice Type: IM Discharge Notice Notice Delivered To: Relationship to Patient: Final Operations Technician Name: Delivery Method: - Mima Days: Prior Verbal Notification: Recipient Understood Notice: Recipient Signature: Med Rec Note Co-signed by Attending: Coverage Notice Comment: Last DP export: 06/03/20 3:38 pm Patient Name: FRANCINE CERVANTES Page 20276 at 1004 All edits/amendments must be made on the electronic document DICTATION DATE: 06/07/20 1003 RETAIL AIDE: JACKELIN 06/07/20 1003 RPT#: [id number] DC DATE:06/06/20 STATUS: DIS IN [facility] [address] [place] [address] END OF REPORT
== END 2020-06-06 18:10 | DRG 728 ==
LOC: D.MS 11:39 → OBSVTIME 11:40 → D.MS 11:48 → OBSVTIME 11:48 → D.MS 05-29 00:07
PROVIDERS: Family Medicine; Surgery; ADMIT Family Medicine; ATTEND Family Medicine
PROC: 0V953ZZ Drainage of Scrotum, Percutaneous Approach (ICD-10-PCS; principal; 2020-05-29 12:00)
DX: N49.2 Inflammatory disorders of scrotum (principal); Z68.43 Body mass index [BMI] 50.0-59.9, adult; E87.1 Hypo-osmolality and hyponatremia; E11.65 Type 2 diabetes mellitus with hyperglycemia; E83.42 Hypomagnesemia; F41.8 Other specified anxiety disorders; I10 Essential (primary) hypertension; J44.9 Chronic obstructive pulmonary disease, unspecified; G47.33 Obstructive sleep apnea (adult) (pediatric); K21.9 Gastro-esophageal reflux disease without esophagitis; E53.8 Deficiency of other specified B group vitamins; G89.29 Other chronic pain; E66.01 Morbid (severe) obesity due to excess calories; E66.9 Obesity, unspecified; M19.90 Unspecified osteoarthritis, unspecified site

== ENCOUNTER 2020-06-06 16:53 | Inpatient (IN) | payer MEDICARE, OTHER ==
[~2020-06-06] VITALS: Ht 175.3 cm; Wt 178.7 kg
[~2020-06-06 16:53] MED LIST changes: +BACLOFEN10 MG PO; +HYDROCODON-ACE1 EA10 PO; +LEVAQUIN750 MG PO
--- NOTE | 2020-06-06 19:05 | NUR ---
PT BEING ADMITTED TO IP REHAB UNDER DR. CRAIG. PT SITTING UP ON SIDE OF BED. ALERT AND ORIENTED X4. NO IV OR O2 NOTED. FENTANYL 50MCG PATCH TO RIGHT UPPER ARM. INSULIN PUMP TO LEFT UPPER ABDOMEN, PT TAKES CARE OF PUMP AND DOSES ACCORDINGLY WITH FSBS ACHS. BLE DISCOLORATION WITH SCATTERED SCAB/SORES. LEFT BUTTOCK CHEEK SCRATCH WAGNER (SCAB/SORES) SLIGHTLY REDDENED AND BLANCHABLE. PT IS POD #9 I&D TO SCROTUM SURGICAL INCISION IS PACKED WITH IDOFORM STRIPS, SCANT AMOUNT OF BLOOD NOTED ON CHUX. TELEMETRY 72 SINUS RHYTHM WITH BUNDLE BRANCH BLOCK PER JOHANN TABLEAU LEAD. PT DENIES ANY PAIN OR NEEDS. HOME BIPAP SETUP AT BEDSIDE. CALL LIGHT AND PERSONAL ITEMS WITHIN REACH. FALL PRECAUTIONS IN PLACE. CPOC
[2020-06-06 20:28] VITALS: BP 124/60
[2020-06-06 22:55] VITALS: BP 124/60; BMI 58.4
--- NOTE | 2020-06-07 02:22 | NUR ---
PT LYING IN BED ON LEFT SIDE EYES CLOSED RESTING. HOB ELEVATED. HOME BIPAP IN USE. RR EVEN AND UNLABORED. CALL LIGHT WITHIN REACH. CPOC
--- NOTE | 2020-06-07 05:52 | NUR ---
PT SITTING UP ON SIDE OF BED PARTICIPATING IN PT WITH MIGUEL. DENIES ANY NEEDS. NO DISTRESS NOTED. CALL LIGHT WITHIN REACH. CPOC
[2020-06-07 08:00] VITALS: BP 142/49
[2020-06-07 08:16] LABS: BASOPHILS 0.6 % (0-2); HEMATOCRIT 48.4 % (42.0-54.0); HEMOGLOBIN 15.8 g/dL (13.5-17.5); IMMATURE GRANULOCYTES 2.1 % (0-5); LYMPHOCYTE ABS# 1.69 10x3/uL (1.32-3.57); LYMPHOCYTES 23.2 % (15-50); MCH 26.8 pg (26.0-34.0); MCHC 32.6 g/dL (31.0-37.0); MCV 82.2 fL (80.0-100.0); MONOCYTES 8.5 % (2-11); NEUTROPHIL ABS# 4.55 10x3/uL (1.78-5.38); NEUTROPHILS 62.6 % (40-80); PLATELET COUNT 187 10x3/uL (130-400); RBC 5.89 10x6/uL (4.20-6.10); RDW 17.6 % (11.5-14.5); WBC 7.3 10x3/uL (4.8-10.8)
[2020-06-07 08:35] LABS: ANION GAP 10.6 mmol/L (8-16); CALCIUM 9.2 mg/dL (8.5-10.1); CREATININE - SERUM 1.4 mg/dL (0.6-1.3); POTASSIUM - SERUM 4.6 mmol/L (3.5-5.1)
[2020-06-07 09:59] VITALS: Ht 175.3 cm; Wt 178.7 kg
--- NOTE | 2020-06-07 13:55 | NUR ---
PATIENT ADMITTED TO REHAB FROM ACUTE FLOOR. HIS PCP IS DR. ALEJANDRE AND DME AT HOME IS A BIPAP. DISCHARGE PLANS ARE FOR HIM TO RETURN HOME. WILL CONTINUE TO FOLLOW WITH PATIENT.
--- NOTE | 2020-06-07 16:22 | NUR ---
LAYING ON BED TALKING ON PHONE AND WATCHING CARTOONS ON HIS PERSONAL COMPUTER. DSG DONE EARLIER TO HIS SCROTAL SAC ON HIS RIGHT SIDE. WOUND IS CIRCULAR WITH BEEFY RED WOUND BED. NO S/S INFECTION. PACKING DONE WITH IODOFORM AND NS.
--- NOTE | 2020-06-07 19:17 | NUR ---
AWAKE AND ALERT. RESTING IN BED WATCHING TV. RESPRIATIONS UNLABORED. TELEMETRY ON. NO ACUTE DISTRESS NOTED. CALL LIGHT IN REACH.
[2020-06-07 19:36] VITALS: BP 123/72
--- NOTE | 2020-06-08 01:16 | NUR ---
SLEEPING WITH RESPIRATIONS UNLABORED. NO DISTRESS NOTED.
--- NOTE | 2020-06-08 05:16 | NUR ---
QUIET HOURS. NO ACUTE CHANGES IN CONDITION THIS SHIFT. RESTING IN BED WITH NO DISTRESS NOTED.
--- NOTE | 2020-06-08 08:00 | NUR ---
SHIFT ASSMT COMPLETED.CL IN REACH.BREAKFAST GIVEN.
[2020-06-08 10:21] VITALS: BP 129/80
--- NOTE | 2020-06-08 12:00 | NUR ---
SITTING UP EATING LUNCH,
--- NOTE | 2020-06-08 19:46 | NUR ---
AWAKE AND ALERT. RESTING IN BED WITH RESPRIATIONS UNLABORED. NO DISTRESS NOTED. DRESSING PACKING INTACT TO RIGHT TESTICLE. REQUEST SANDWICH FOR HS SNACK.
[2020-06-08 20:02] VITALS: BP 127/58
--- NOTE | 2020-06-09 05:08 | NUR ---
QUIET HOURS. NO ACUTE CHANGES IN CONDITION THIS SHIFT. RESPIRATIONS UNLABORED. NO DISTRESS NOTED.
--- NOTE | 2020-06-09 08:00 | NUR ---
SHIFT ASSMT COMPLETED.
[2020-06-09 14:58] VITALS: BP 108/67
[2020-06-09 19:00] VITALS: BP 115/72
--- NOTE | 2020-06-09 19:34 | NUR ---
AWAKE AND ALERT. RESTING IN BED WATCHING TV. RESPIRATIONS UNLABORED. NO DISTRESS NOTED.
--- NOTE | 2020-06-10 00:31 | NUR ---
RESTING QUIETLY IN BED WITH NO DISTRESS NOTED.
--- NOTE | 2020-06-10 04:58 | NUR ---
QUIET HOURS. NO ACUTE CHANGES IN CONDITION THIS SHIFT. RESTING IN BED WITH NO DISTRESS NOTED.
[2020-06-10 07:51] VITALS: BP 127/68
[2020-06-10 09:03] LABS: ANION GAP 11.1 mmol/L (8-16); CALCIUM 9.5 mg/dL (8.5-10.1); CREATININE - SERUM 1.3 mg/dL (0.6-1.3); POTASSIUM - SERUM 4.1 mmol/L (3.5-5.1)
[2020-06-10 09:30] LABS: BASOPHILS 0.5 % (0-2); EOSINOPHILS 1.3 % (0-7); HEMATOCRIT 50.2 % (42.0-54.0); HEMOGLOBIN 16.5 g/dL (13.5-17.5); IMMATURE GRANULOCYTES 2.5 % (0-5); MCHC 32.9 g/dL (31.0-37.0); MCV 82.3 fL (80.0-100.0); MONOCYTES 7.2 % (2-11); NEUTROPHIL ABS# 3.99 10x3/uL (1.78-5.38); NEUTROPHILS 65.5 % (40-80); PLATELET COUNT 177 10x3/uL (130-400); RDW 17.5 % (11.5-14.5); WBC 6.1 10x3/uL (4.8-10.8)
--- NOTE | 2020-06-10 13:26 | NUR ---
LAYING IN BED WATCHING TV ON PERSONAL COMPUTER. DENIES NEEDS. DECLINED TO HAVE WOUND CARE DONE ON BOTTOM OF SCROTAL SACK SO FAR STATING "NO, I'VE NOT CLEANED UP YET".....HE WALKED SMALL WITH THERAPY THIS MORNING. CALL LIGHT IN REACH
--- NOTE | 2020-06-10 18:54 | NUR ---
RECEIVED PT LYING IN BED ON LEFT SIDE. ALERT AND ORIENTED X4. FENTANYL PATCH ON RIGHT SHOULDER INTACT. DENIES ANY PAIN OR NEEDS. NO DISTRESS NOTED. CALL LIGHT AND WATER WITHIN REACH. FALL PRECAUTIONS IN PLACE. CPOC
[2020-06-10 21:54] VITALS: BP 125/55
--- NOTE | 2020-06-10 23:27 | NUR ---
PT LYING IN BED ON LEFT SIDE EYES CLOSED RESTING. HOME BIPAP IN USE. NO DISTRESS NOTED. CALL LIGHT WITHIN REACH. CPOC
--- NOTE | 2020-06-11 03:38 | NUR ---
PT LYING IN BED ON LEFT SIDE EYES CLOSED RESTING. HOME BIPAP IN USE. NO DISTRESS NOTED. CALL LIGHT WITHIN REACH. CPOC
--- NOTE | 2020-06-11 05:48 | NUR ---
[facility]ED [facility] PER PT REQUESTS PT STATES HIS BS IS BEING CHECKED TO EARLY IN AM AND BREAKFAST TRAY DOES NOT ARRIVE UNTIL [id number] THEREFORE HE IS HAVING TO HAVE BS RECHECKED OR NOT HAVE AN ACCURATE DOSAGE OF INSULIN VIA INSULIN PUMP. NO OTHER ISSUES CONCERNED. NO DISTRESS NOTED. PT DRESSED AND READY FOR THERAPY.
[2020-06-11 08:06] VITALS: BP 123/48
--- NOTE | 2020-06-11 09:44 | NUR ---
Nutrition Follow-up: Diet: Diabetic PO intake: 100% Last BM: 06/09/20 x 2 Wt: 394# (06/07/20) Meds noted: vit B12, probiotics, abx, HCTZ, lasix, k-dur Labs noted: POC Glu 158(H), Glu 192(H) Skin: abscess of scrotum Recommend continue current diet. RD will follow-up within 7 days.
--- NOTE | 2020-06-11 10:03 | NUR ---
LAYING DOWN IN BED WATCHING MOVIE ON PC. DENIES NEEDS OR C/O. PAIN MEDS GIVEN THIS MORNING PER PT REQUST. CALL LIGHT IN REACH
[2020-06-11] MEDS ORDERED: PERCOCET 5-3251 TAB PO (12:54)
[2020-06-11] MEDS ORDERED: FENTANYL1 EAC3 TRANSDERM (12:54)
--- NOTE | 2020-06-11 12:56 | RHP ---
PATIENT: FRANCINE CERVANTES MEDICAL RECORD: [id number] ACCOUNT: [id number] LOCATION:[id number] : 61 ADMISSION DATE: 06/06/20 REHABILITATION HISTORY AND PHYSICAL EXAMINATION POST ADMISSION PHYSICIAN EXAMINATION ADMITTING DIAGNOSIS: Scrotal abscess. HISTORY OF PRESENT ILLNESS: The patient is a 54-year-old gentleman who has got a history of diabetes, hypertension, COPD, PE, obesity, depression and anxiety, who apparently had a scrotal abscess. Apparently it started off small but grew pretty rapidly. He was placed on antibiotics, but was unable to get them. He had been cleaning with Hibiclens. He uses a cane or walker to ambulate. Dr. Cornelius performed an I&D, his wound is being packed on a regular basis. The patient is known to this rehabilitation. He has requested rehabilitation to get his strength back in the past. His will not help apparently with dressing changes. He is postop day #7. He is on vancomycin. He is currently mod assist with a rolling walker walking 100 feet today and requires rest breaks. Min to max assist with ADLs. His home has 3 steps to entry on a rail. He has been monitored closely for lab values, medication adjustment, pain control, impaired mobility, gait disturbance, balance deficit, dyspnea on exertion, and self-care deficits. These are all barriers to his discharge home. COMORBIDITIES: Include arthritis, asthma, COPD, neuropathy, diabetes, hypertension, obstructive sleep apnea, peripheral arterial disease. PAST MEDICAL HISTORY: Significant for diabetes, chronic back pain, scrotal problems, previous scrotal abscess, depression, anxiety. PAST SURGICAL HISTORY: Includes shoulder surgery, knee surgery, now scrotal surgery. ALLERGIES: MORPHINE, ARIPIPRAZOLE AND SPIDER VENOM. CURRENT MEDICATIONS: Include B12 1000 mcg daily. He is on a fentanyl patch 50 mcg daily, hydrochlorothiazide 12.5 mg daily, lisinopril 20 mg daily, Levaquin 750 for 7 dosage, Lexapro 20 mg daily, Colace 100 mg daily, vitamin D 5000 units daily, Perforomist 20 mcg b.i.d., Pulmicort 0.5 mg b.i.d., Protonix 40 mg b.i.d., Lasix 40 mg b.i.d. He is on a glucose replacement protocol at this time, he is on Requip 1 mg at bedtime, Lyrica 150 mg b.i.d., potassium 20 mEq b.i.d., Singulair 10 mg at bedtime, isosorbide 30 mg at bedtime, Eliquis 5 mg b.i.d., tramadol 100 mg q.6 hours p.r.n. He is on oxycodone 5/325 one tab q.6 hours p.r.n. He is on adrenalin or epinephrine p.r.n. anaphylaxis. He is on Lotrimin cream to apply b.i.d., Zostrix topically and baclofen 20 mg t.i.d. p.r.n. spasms. HABITS: No current, alcohol, or tobacco use. FAMILY HISTORY: Noncontributory. SOCIAL HISTORY: The patient hopes to return back home and get back to his prior level of function. REVIEW OF SYSTEMS: GENERAL: He does complain of weakness and fatigue. HISTORY AND PHYSICAL [id number] FRANCINE CERVANTES HEENT: Denies cold, cough, congestion. CARDIOVASCULAR: Denies any chest pain. PHYSICAL EXAMINATION: VITAL SIGNS: Stable and afebrile. GENERAL: A morbidly obese gentleman in no acute distress, alert upon exam. HEENT: Normocephalic and atraumatic. Mucosa moist. NECK: Supple without lymphadenopathy. LUNGS: Clear in [place]. No wheezes or rales. HEART: Regular rate and rhythm. No murmurs, rubs or gallops. ABDOMEN: Soft, morbidly obese. EXTREMITIES: No clubbing, cyanosis or edema. NEUROLOGIC: He does have some diffuse weakness. LABORATORY DATA: Show a white count of 7.3, H&H 15 and 48, and platelet count is noted to be 187. Sodium 136, potassium 4.6, BUN and creatinine of 44 and 1.4 and blood sugar is noted to be 124. ASSESSMENT: This is a 54-year-old gentleman admitted to the rehab with a working diagnosis of scrotal abscess and morbid obesity. The patient has potential to make improvements. We instituted the following multidisciplinary therapies including, but not limited to physical, occupational, respiratory, speech, nutritional services, prosthetics and orthotics. Given his complex medical condition and risks for further medical complications, rehabilitation services cannot be provided at a low level of care such as jail facility. PLAN: Admit to [facility] for inpatient therapy to include the following disciplines: A. Physical therapy to improve gait, all transfer skills and bed mobility to a modified independent level. B. Occupational therapy to improve activities of daily living. C. Case management to help with discharge planning and placement options. D. Nutrition to assist with nutritional needs. E. Rehabilitation nursing to assist in monitoring the patient's underlying medical conditions and to assist with any type of bowel or bladder management. 1. The patient's current medication and medical care will be continued. 2. Will be placed on standard fall precautions. 3. The patient's expected length of stay is approximately 7-10 days. 4. We will discuss this patient during care team staff meeting this week. TRANSINT:[id number] Voice Confirmation ID: [id number] DOCUMENT ID: [id number] YURY notes whether there has been none or any medical/functional change since admission: - No change since preadmission screen. YURY attests patient continues to be appropriate for IRF: - Continues to be appropriate. HISTORY AND PHYSICAL [id number] FRANCINE CERVANTES,SHAW NOVA MD at 1256 CC: [id number] DICTATION DATE: 06/07/20 0854 SHOE REPAIRER HELPER: 06/07/20 0953 ADM IN [facility] [address] [id number]
--- NOTE | 2020-06-11 18:52 | NUR ---
RECEIVED PT SITTING UP ON SIDE OF BED. ALERT AND ORIENTED X4. DENIES ANY NEEDS OR PAIN. FENTANYL PATCH TO RIGHT SHOULDER INTACT CHANGED 06/10. INSULIN PUMP TO RUQ INTACT. NO DISTRESS NOTED. CALL LIGHT AND WATER WITHIN REACH. FALL PRECAUTIONS IN PLACE. CPOC
[2020-06-11 20:15] VITALS: BP 124/58
--- NOTE | 2020-06-12 02:49 | NUR ---
PT LYING IN BED ON LEFT SIDE EYES CLOSED RESTING. HOME BIPAP IN USE. RR EVEN AND UNLABORED. CALL LIGHT WITHIN REACH. CPOC
[2020-06-12 07:47] LABS: ANION GAP 8.1 mmol/L (8-16); BASOPHILS 0.7 % (0-2); CALCIUM 8.8 mg/dL (8.5-10.1); CARBON DIOXIDE 30.4 mmol/L (21.0-32.0); CREATININE - SERUM 1.2 mg/dL (0.6-1.3); EOSINOPHILS 1.8 % (0-7); HEMATOCRIT 43.8 % (42.0-54.0); HEMOGLOBIN 14.4 g/dL (13.5-17.5); IMMATURE GRANULOCYTES 1.7 % (0-5); LYMPHOCYTE ABS# 1.61 10x3/uL (1.32-3.57); LYMPHOCYTES 29.5 % (15-50); MCH 26.9 pg (26.0-34.0); MCHC 32.9 g/dL (31.0-37.0); MCV 81.7 fL (80.0-100.0); MONOCYTES 6.6 % (2-11); NEUTROPHIL ABS# 3.25 10x3/uL (1.78-5.38); NEUTROPHILS 59.7 % (40-80); PLATELET COUNT 145 10x3/uL (130-400); POTASSIUM - SERUM 4.5 mmol/L (3.5-5.1); RBC 5.36 10x6/uL (4.20-6.10); RDW 17.5 % (11.5-14.5); WBC 5.5 10x3/uL (4.8-10.8)
[2020-06-12 07:49] VITALS: BP 140/79
--- NOTE | 2020-06-12 08:00 | NUR ---
SHIFT ASSMT COMPLETED.DENIES NEEDS.CL IN REACH PLAN TO DC HOME TODAY.
--- NOTE | 2020-06-12 09:32 | NUR ---
PATIENT DISCHARGING HOME TODAY WITH FAMILY. PATIENT DECLINES HOME HEALTH AND ANY DME NEEDS AT THIS TIME. DUSTIN SIGNED, IMM SERVED AND EXPLAINED, ONE GIVEN TO PATIENT AND ONE FILED IN CHART. DR. HILL MARIEE WILL CALL PATIENT WITH AN APPOINTMENT. DR. ADAM 07/01/20 @ 10:45. DC INSTRUCTIONS FAXED TO PCP AND REVIEWED WITH PATIENT.
--- NOTE | 2020-06-12 11:40 | NUR ---
REVIEWED MEDS,F/U APPTS,AND SCRIPTS.DECLINES NEED FOR HOME HEALTH.MED RETURNED FROM PHARMACY;OXYCODONE/ACETAMINOPHEN 7 TABS.
--- NOTE | 2020-06-12 11:57 | NUR ---
DC'D IN STABLE CONDITION WITH BELONGINGS.
== END 2020-06-12 11:50 | disposition home or self-care (01) | DRG 728 ==
LOC: D.REHAB 16:53
PROVIDERS: ADMIT Emergency Medicine; ATTEND Emergency Medicine
DX: N49.2 Inflammatory disorders of scrotum (principal); E66.01 Morbid (severe) obesity due to excess calories; E11.21 Type 2 diabetes mellitus with diabetic nephropathy; J45.909 Unspecified asthma, uncomplicated; J44.9 Chronic obstructive pulmonary disease, unspecified; I10 Essential (primary) hypertension; G47.33 Obstructive sleep apnea (adult) (pediatric); I73.9 Peripheral vascular disease, unspecified; R26.9 Unspecified abnormalities of gait and mobility; M19.90 Unspecified osteoarthritis, unspecified site; E29.1 Testicular hypofunction; F41.8 Other specified anxiety disorders; E53.8 Deficiency of other specified B group vitamins

== ENCOUNTER → 2020-06-27 13:59 | Outpatient (CLI) | payer MEDICARE, OTHER ==
[2020-06-07 09:59] VITALS: BMI 58.2
[~2020-06-27 13:59] MED LIST changes: +FENTANYL1 EAC3 TRANSDERM
== END | disposition home or self-care (01) ==
LOC: D.MRI 06-26 11:30
PROVIDERS: ATTEND Family Medicine
DX: M54.5 Low back pain (principal)

== ENCOUNTER 2020-08-15 05:40 | Day surgery (SDC) | payer MEDICARE, OTHER ==
[2020-08-14 12:52] LABS: BASOPHILS 0.2 % (0-2); EOSINOPHILS 1.5 % (0-7); HEMATOCRIT 50.8 % (42.0-54.0); HEMOGLOBIN 16.8 g/dL (13.5-17.5); IMMATURE GRANULOCYTES 1.6 % (0-5); LYMPHOCYTE ABS# 1.45 10x3/uL (1.32-3.57); LYMPHOCYTES 26.4 % (15-50); MCH 28.4 pg (26.0-34.0); MCHC 33.1 g/dL (31.0-37.0); MEAN PLATELET VOLUME 12.7 fL (7.4-10.4); MONOCYTES 11.1 % (2-11); NEUTROPHIL ABS# 3.26 10x3/uL (1.78-5.38); NEUTROPHILS 59.2 % (40-80); PLATELET COUNT 156 10x3/uL (130-400); RBC 5.91 10x6/uL (4.20-6.10); RDW 15.5 % (11.5-14.5); WBC 5.5 10x3/uL (4.8-10.8)
[2020-08-14 12:54] LABS: ANION GAP 10.1 mmol/L (8-16); CALCIUM 9.4 mg/dL (8.5-10.1); CARBON DIOXIDE 27.4 mmol/L (21.0-32.0); CREATININE - SERUM 1.4 mg/dL (0.6-1.3); POTASSIUM - SERUM 4.5 mmol/L (3.5-5.1)
[2020-08-14 12:57] LABS: APTT 27.4 SECONDS (22.8-39.4); INR 1.13 (0.85-1.17); PROTIME 13.4 SECONDS (11.6-15.0)
[~2020-08-15] VITALS: Ht 175.3 cm; Wt 172.4 kg
--- NOTE | ~2020-08-15 | OP ---
PATIENT NAME: FRANCINE CERVANTES MEDICAL RECORD: [id number] :61 LOCATION:D[facility]OPS ADMISSION DATE: SURGEON: RUBÉN ADAM MD DATE OF OPERATION: 08/15/2020 PREOPERATIVE DIAGNOSES: 1. Scalp lesion, 1.5 cm. 2. Morbid obesity. 3. Diabetes mellitus. 4. Clotting disorder, on chronic anticoagulants. POSTOPERATIVE DIAGNOSES: 1. Scalp lesion, 1.5 cm. 2. Morbid obesity. 3. Diabetes mellitus. 4. Clotting disorder, on chronic anticoagulants. PROCEDURE: Excision of 1.5 cm scalp lesion. SURGEON: Rubén Adam MD REPORT OF PROCEDURE: The patient's scalp was prepped and draped in sterile fashion. On the middle of the patient's forehead, right at the hairline, there was a soft tissue mass that was present. A transverse incision was made and some creases of the forehead and electrocautery was used to come through the subcutaneous tissues. We then used sharp dissection to come around the soft tissue mass and eventually as we came around it we were able to get underneath the mass and completely excise it from the underlying tissues. The mass was not adherent to the patient's skull. Once the mass was completely excised, it was sent off for permanent specimen. The wound was then irrigated out with normal saline and any bleeding that was found was treated with electrocautery. The subcutaneous tissues were reapproximated with interrupted 3-0 Vicryl and the skin was closed with running subcutaneous 5-0 Monocryl. COMPLICATIONS: None. CONDITION: Stable. ANESTHESIA: General endotracheal and local. BLOOD LOSS: Minimal. 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 08/15/[id number] [place] [address]
[~2020-08-15 05:40] MED LIST changes: +ANDROGEL5 GM IM; +HUMULIN R100 UNIT/1; +PROTONIX40 MG
[2020-08-15 06:12] VITALS: BP 113/50; Ht 175.3 cm; Wt 172.4 kg
[2020-08-15] MEDS ORDERED: CYMBALTA60 MG (06:12)
[2020-08-15] MEDS ORDERED: HYDROCODON-ACE1 EAC7 PO (08:33)
--- NOTE | 2020-08-15 10:05 | NUR ---
IV REMOVED WITH TIP INTACT, DISCHARGE INSTRUCTIONS PROVIDED.
--- NOTE | 2020-08-15 10:20 | NUR ---
1010 INSTRUCTIONS GIVEN AND PT DENIES PAIN. ABLE TO WALK TO ELEVATOR AND PT D/C HOME
== END 2020-08-15 10:20 | disposition home or self-care (01) ==
LOC: D.OPS 05:40
PROVIDERS: Anesthesiology; ATTEND Surgery
DX: R22.0 Localized swelling, mass and lump, head (principal); E66.01 Morbid (severe) obesity due to excess calories; E11.9 Type 2 diabetes mellitus without complications; D68.9 Coagulation defect, unspecified; Z79.01 Long term (current) use of anticoagulants